=== PATIENT | male | born 1960 | race African-American/Black ===

== ENCOUNTER 2018-02-02 12:40 | Emergency (ER) | payer SELFPAY ==
[2018-02-02 14:04] LABS: Hemoglobin 14.9 g/dL (14.0-18.0); Mean Corpuscular HGB CONC 28.6 g/dL (32.0-36.0); Mean Corpuscular Hemoglobin 26.1 pg (27.0-31.0); Mean Corpuscular Volume 91.4 fL (78.0-98.0); Mean Platelet Volume 8.7 fL (7.4-10.4); Platelet Count 158 thou/uL (130-400); RBC Distribution Width 12.2 % (11.5-14.5); White Blood Cell (WBC) Count 7.7 thou/uL (4.8-10.8)
--- NOTE | 2018-02-02 14:21 | RAD ---
AP VIEW CHEST: SUPINE AND UPRIGHT VIEWS ABDOMEN: HISTORY: Pain and weakness for four days. FINDINGS: CHEST: AP view chest demonstrates a subtle area of patchy density in the left retrocardiac area, con cerning for a possible area of left lower lobe pneumonia. ABDOMEN: Supine and upright views of the abdomen demonstrate a large amount of gas in the colon. Th e colon is distended, but no individual loop is markedly distended. Gas is also seen in the small cait wel. No definite evidence of an air-fluid level is seen. IMPRESSION: 1. Area of opacity in the left lung base, concerning for an area of pneumonia. 2. Distention of colon by a large amount of gas. No definite evidence of obstruction or ileus seen. POS: [facility]
[2018-02-02 14:25] LABS: ALT (SGPT) 40 U/L (8-55); AST (SGOT) 23 U/L (5-34); Albumin 4.8 g/dL (3.5-5.0); Alkaline Phosphatase 59 U/L (40-150); Anion Gap 13 mmol/L (10-20); BUN (Urea Nitrogen) 12 mg/dL (8.4-25.7); Bilirubin, Total 0.7 mg/dL (0.2-1.2); Calc. Creatinine Clearance 0 mL/min (70-130); Calcium 10.3 mg/dL (7.8-10.44); Carbon Dioxide 25 mmol/L (22-29); Chloride 101 mmol/L (98-107); Estimated GFR-MDRD 68; Globulin 4.3 g/dL (2.4-3.5); Glucose 101 mg/dL (70-105); Protein, Total 9.1 g/dL (6.0-8.3); Sodium 135 mmol/L (136-145)
[2018-02-02 14:29] LABS: Troponin I Less than 0.010 ng/mL (< 0.028)
[2018-02-02 14:31] LABS: #Eosinphils 0.1 thou/uL (0.0-0.7); #Lymphocytes 2.3 thou/uL (1.20-3.40); #Monocytes 0.5 thou/uL (0.11-0.59); #Neutrophils 4.8 thou/uL (1.40-6.50); %Basophils 0.3 % (0.0-1.0); %Eosinophils 1.4 % (0.0-10.0); %Lymphocytes 29.4 % (21.0-51.0); %Neutrophils 61.8 % (42.0-75.0); PLT Morphology Comment Appears Adequate
[2018-02-02] MEDS ORDERED: Ondansetron HCl/PF 4 MG/2 ML Vial ONE (15:26)
[2018-02-02] MEDS ORDERED: Morphine 4 MG/ML VIAL ONE (15:26)
== END 2018-02-02 16:20 | disposition home or self-care (01) ==
LOC: ERS 12:40
DX: R55 Syncope and collapse (principal); R10.9 Unspecified abdominal pain; I10 Essential (primary) hypertension; Z79.899 Other long term (current) drug therapy
CPT/HCPCS: 36415; 74022; 80053; 82553; 84484; 85025; 93005; 96372; 96374; 96375; J2270; J2405

== ENCOUNTER 2018-04-04 08:00 | Inpatient (IN) | payer OTHER ==
--- NOTE | 2018-03-30 10:40 | HP ---
HISTORY OF PRESENT ILLNESS: Axel Keenan is a 57-year-old male patient, unemployed followed by [facility] residents, Dr. Davis, undergoing screening colonoscopy 02/03/2018. This revealed ascending colon polyp, hepatic flexure, biopsy tubular adenoma. This follow up occupied 30%-40% of the colonic circ umference and the biopsy was not excised. The patient was sent to Dr. Lon Tong to evaluate this . The patient had a rectosigmoid tubular adenoma that was biopsied and biopsy of the sigmoid colon, 30 cm was normal mucosa. The patient subsequently referred to Dr. Lon Tong where he underwent r epeat colonoscopy. [facility] on 03/16/2018 noting a 30 mm polyp at hepatic flexure. This had been tattooed by the [facility]. When they saw him, polyp re section was not possible. He had a 4 mm polyp in the sigmoid colon removed with cold snare and he fishman d 12 mm polyp in the rectosigmoid removed with hot snare. This was tattooed. Pathology returned fra gments of TVA, hepatic flexure, rectosigmoid 20 cm, invasive well to moderately differentiated adenoc arcinoma arising in a tubulovillous adenoma, margins positive for adenocarcinoma. Upper endoscopy wa s unremarkable. Plan at this time is to repeat bowel prep and plan laparoscopic right colectomy vers us segmental resection and laparoscopic low anterior resection. SOCIAL HISTORY: Patient is unemployed. He is working on disability. He is from his . He lives with his girlfriend. PAST SURGICAL HISTORY: Right wrist surgery, colonoscopies as noted above. Testicular torsion and ri ght inguinal hernia repair with mesh. PAST MEDICAL HISTORY: Hepatitis C treated with Dr. Tong 2000, hypertension and GERD. REVIEW OF SYSTEMS: Ten point noncontributory. MEDICATION: Lisinopril 40 mg a day and hydrochlorothiazide daily. ALCOHOL: None. PHYSICAL EXAMINATION: VITAL SIGNS: 259 pounds, 73 inches, 33 BMI, 146/84, 73, 97.5 degrees. HEENT: Unremarkable. LUNGS: Clear to auscultation. CARDIAC: Regular rate and rhythm without murmur or gallop. ABDOMEN: Soft, nontender, no masses. EXTREMITIES: Unremarkable. ASSESSMENT AND PLAN: 1. Hepatic flexure TVA, sessile 30%-40% circumference tattooed by Family Practice. Plan, laparoscop ic segmental resection versus right colectomy. 2. 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 Th is has been tattooed by Dr. Lon Tong. Plan laparoscopic left colon resection and anastomosis. Risks of infection, bleeding, reoperation, anastomotic leakage discussed. 3. History of hepatitis C.
[2018-04-06] MEDS ORDERED: Ketorolac Tromethamine 30 MG/ML VIAL ONE (07:38)
[2018-04-06] MEDS ORDERED: Meropenem 2 GM in Admixture Fee 1 EACH IVPB SCH (08:00)
[2018-04-06] MEDS ORDERED: Meropenem 2 GM, Admixture Fee 1 EACH in Sodium Chloride 0.9% 100 ML IVPB SCH (08:15)
[2018-04-06] MEDS ORDERED: Dexamethasone 4 mg/ml Vial ONE (08:31)
[2018-04-06] MEDS ORDERED: Fentanyl 100 MCG/2 ML VIAL ONE ×5 (08:31→17:49)
[2018-04-06] MEDS ORDERED: Midazolam HCl 2 mg/2 ml Vial ONE ×2 (08:31→11:13)
[2018-04-06] MEDS ORDERED: Bupivacaine HCl 0.5%/Epinephrine 1:200,000/PF 30 ml Vial ONE (09:01)
[2018-04-06] MEDS ORDERED: PROPOFOL 200 MG/20 ML VIAL ONE (10:46)
[2018-04-06] MEDS ORDERED: Vecuronium 10 MG VIAL ONE (10:46)
[2018-04-06] MEDS ORDERED: PHENYLEPHRINE-NS 100 MCG/ML 10 ML SYRINGE ONE (10:46)
[2018-04-06] MEDS ORDERED: Lidocaine 1% PF 5 ML VIAL ONE (10:46)
[2018-04-06] MEDS ORDERED: Glycopyrrolate 0.2 MG/ML 5 ML SYRINGE ONE (10:46)
[2018-04-06] MEDS ORDERED: Ondansetron PF 4 MG/2 ML Vial ONE (10:46)
[2018-04-06] MEDS ORDERED: Dexamethasone 20 MG/5 ML VIAL ONE (10:46)
[2018-04-06] MEDS ORDERED: Bupivacaine/Epinephrine 0.25% 30 ML VIAL ONE (11:03)
[2018-04-06] MEDS ORDERED: Fentanyl 250 MCG/5 ML VIAL ONE (11:13)
[2018-04-06] MEDS ORDERED: Albumin 5% 500 ML ONE ×2 (13:34→13:36)
[2018-04-06] MEDS ORDERED: SUGAMMADEX SODIUM 200 MG/2 ML VIAL ONE (16:30)
[2018-04-06] MEDS ORDERED: Promethazine HCl 25 MG/ML VIAL IM PRN (17:14)
[2018-04-06] MEDS ORDERED: Ondansetron HCl/PF 4 MG/2 ML Vial IVP PRN (17:14)
[2018-04-06] MEDS ORDERED: Promethazine HCl 25 MG/ML VIAL SLOW IVP PRN (17:14)
[2018-04-06] MEDS ORDERED: hydrALAZINE 20 MG/ML VIAL SLOW IVP PRN (17:20)
[2018-04-06] MEDS ORDERED: Ondansetron ODT 8 MG TAB SL PRN (17:26)
[2018-04-06] MEDS ORDERED: Ondansetron ODT 8 MG TAB PO PRN (17:26)
[2018-04-06] MEDS: Ketorolac Tromethamine 30 MG/ML VIAL IVP SCH ×2 (19:30→23:24)
[2018-04-06] MEDS: Enoxaparin Sodium 40 MG/0.4 ML SYRINGE SC SCH (19:31)
[2018-04-06] MEDS: Famotidine/PF 20 mg/2ml Vial SLOW IVP SCH (19:31)
[2018-04-06] MEDS: Acetaminophen 1,000 MG in Premix Bag 1 BAG IVPB SCH ×2 (20:51→23:24)
[2018-04-06] MEDS: Lactated Ringer's 1,000 ML IV SCH (21:04)
[2018-04-06] MEDS: Famotidine 20 MG TAB PO SCH (21:04)
[2018-04-06] MEDS: Ondansetron PF 4 MG/2 ML Vial IVP PRN (22:26)
--- NOTE | 2018-04-07 01:55 | OP ---
DATE OF PROCEDURE: 04/06/2018 PREOPERATIVE DIAGNOSES: Hepatic flexure, distal ascending colon, tubular adenoma polyp unresectable, sessile. Rectosigmoid adenocarcinoma on biopsy. PROCEDURES PERFORMED: Laparoscopic right colectomy, laparoscopic mobilization of splenic flexure, laparoscopic sigmoid resection with 33 mm EEA stapled anastomosis, checked under water and no leaks. ANESTHESIA: General. ASSISTANTS: 1. Pati Sheehan, certified scrub miller first. 2. Ronda Gastelum, MS4. ESTIMATED BLOOD LOSS: 100 mL. BLOOD TRANSFUSED: None. DESCRIPTION OF PROCEDURE: The patient was taken to the operating room. Under general anesthesia in dorsal lithotomy position, the abdomen was prepared with ChloraPrep, draped in routine fashion. Buttocks and perineum prepared with Betadine. TAP block had been performed. Infraumbilical incision was made, pneumoperitoneum to 15 mmHg was obtained with a Veress needle laparoscope inserted. Right and left upper quadrant incisions were made and a #5 port was placed, left lower quadrant incision was made and a #12 port was placed, right lower quadrant incision was made and #12 was placed, suprapubic incision was made and a #5 port was placed. Other #5 ports placed as indicated. Attention was first turned to the right colon. The right colon was mobilized as was the terminal ileum. The appendix was distally adherent to the pelvis, and this took a prolonged period of time to take the adhesions down from the pelvis. Appendix fragmented and was removed in segments. It was submitted to Pathology along with the right colon specimen. Once the right colon and cecum were mobilized, the right ureter had been identified and kept free of harm. Medial and lateral dissection carried out with the mesentery identifying the ileocolic pedicle and dissected it free. Duodenum identified and kept free of harm. The tattooed area of the colon was in the distal ascending colon. Pedicle taken down with EndoGIA white load stapler. LigaSure was used to divide the mesentery up to 4 inches of the ileum and up towards the proximal transverse colon. Blue load stapler was used to divide the small bowel and colon. Specimen was placed on the right abdomen. [id number]-[id number] anastomosis created with 3 fires of the EndoGIA blue load stapler. Good anastomosis was noted between the terminal ileum and the proximal transverse colon. The gastrocolic ligament had been taken down from the transverse colon to the right and to the left of midline and this continued towards the splenic flexure. The transverse colon distally was mobilized. The descending colon was mobilized along the peritoneal reflection. The splenic flexure was mobilized using the LigaSure. Good hemostasis was noted. Dissection was carried down towards the pelvis. The tattooed area of the distal sigmoid colon was identified. It was retracted cephalad. The patient was positioned according to the area of work for optimal exposure. The left colon was mobilized, taking down the peritoneal reflection. The left ureter was identified and kept free of harm as was the right ureter. Mesentery was dissected free medially and laterally, and the YESSI artery was dissected free and divided with 2 fires of the ARTUR white load stapler. The ureter was kept free of harm. Dissection was carried down to the pelvis. Rectosigmoid was divided with 3 fires of the EndoGIA blue load stapler. This segment of the descending colon was reached into the pelvis without tension. The grasper was placed in this area well above the tattooed area for anastomosis. Distal margins were at least 4 cm or more. At this point, Pfannenstiel incision was made and a wound protector inserted, and the right colon specimen was removed along with the segment of his appendix submitted to Pathology. The left colon was brought out through this wound protector and the area to be anastomosed this from a position being marked with a grasper. The colon was divided with a cautery and had excellent blood supply. The patient was morbidly obese, and there was abundant fatty tissue. Pursestring suture of 2-0 prolene was placed and a lubricated EEA anvil was placed into the proximal colon and pursestring suture tied. This was placed back down into the abdominal cavity, and wound protector twisted to reobtain pneumoperitoneum. Attention was then turned to the pelvis. My assistants then placed serial rectal dilators to a 33 mm EEA sizer. The stapler was then inserted transanally and advanced towards the rectal stump, visualized endoscopically, and the post from the stapler advanced out of the staple line and then made it to the proximal colon anvil after assuring proper orientation. Staple was fired and a good anastomosis appreciated. This was checked under water and there were no leaks. Abdominal cavity was inspected and there were no areas of bleeding. Irrigant and pneumoperitoneum evacuated. All instruments were removed including the wound protector. Gloves and gowns were changed. Wound irrigated. Fascia approximated from the Pfannenstiel incision suprapubic with continuous suture of #1 PDS. Skin and subcutaneous tissues were irrigated. Gloves changed. All skin incision was approximated with subdermal 4-0 Monocryl and Dunlo glue applied. Job ID: [id number]
[2018-04-07 05:45] LABS: #Monocytes 1.3 thou/uL (0.11-0.59); #Neutrophils 11.4 thou/uL (1.40-6.50); %Eosinophils 0.1 % (0.0-10.0); %Lymphocytes 7.3 % (21.0-51.0); %Monocytes 9.5 % (0.0-10.0); %Neutrophils 83.1 % (42.0-75.0); Hemoglobin 11.1 g/dL (14.0-18.0); Mean Corpuscular Hemoglobin 31.3 pg (27.0-31.0); Mean Platelet Volume 9.2 fL (7.4-10.4); Platelet Count 147 thou/uL (130-400); RBC Distribution Width 12.1 % (11.5-14.5); Red Blood Cell (RBC) Count 3.56 mill/uL (4.70-6.10); White Blood Cell (WBC) Count 13.8 thou/uL (4.8-10.8)
[2018-04-07 05:53] LABS: Anion Gap 8 mmol/L (10-20); BUN (Urea Nitrogen) 17 mg/dL (8.4-25.7); Calc. Creatinine Clearance 111 mL/min (70-130); Calcium 8.4 mg/dL (7.8-10.44); Carbon Dioxide 26 mmol/L (22-29); Chloride 104 mmol/L (98-107); Estimated GFR-MDRD 80; Glucose 164 mg/dL (70-105); Potassium 4.1 mmol/L (3.5-5.1); Sodium 134 mmol/L (136-145)
[2018-04-07] MEDS: Lactated Ringer's 1,000 ML IV SCH ×3 (06:27→23:36)
[2018-04-07] MEDS: Acetaminophen 1,000 MG in Premix Bag 1 BAG IVPB SCH ×2 (06:27→11:26)
[2018-04-07] MEDS: Ketorolac Tromethamine 30 MG/ML VIAL IVP SCH ×4 (06:27→23:44)
[2018-04-07] MEDS: Famotidine 20 MG TAB PO SCH ×2 (08:08→20:31)
[2018-04-07] MEDS: Famotidine/PF 20 mg/2ml Vial SLOW IVP SCH ×2 (08:08→20:38)
[2018-04-07] MEDS: Lisinopril 20 MG TAB PO SCH ×2 (08:08)
[2018-04-07] MEDS: Morphine 2 MG/ML SYRINGE SLOW IVP PRN (08:13)
[2018-04-07] MEDS ORDERED: Hydrochlorothiazide 25 MG TAB PO SCH (09:00)
[2018-04-07] MEDS ORDERED: Ibuprofen 600 MG TAB PO PRN (12:00)
[2018-04-07] MEDS ORDERED: traMADol HCl 50 MG TAB PO PRN ×2 (12:00)
[2018-04-07] MEDS: Ondansetron PF 4 MG/2 ML Vial IVP PRN (16:24)
--- NOTE | 2018-04-07 19:54 | RAD ---
UPRIGHT AND SUPINE FRONTAL IMAGING OF THE ABDOMEN AND PELVIS 04/07/18 COMPARISON: 02/02/18. HISTORY: Status post colon resection, distention. FINDINGS: Postoperative clips overlie the right lower quadrant. No discrete free intraperitoneal air is seen on the upright imaging. There are air fluid levels noted within the bowel and there is distention of cait wel within the central abdomen. This appears to represent a combination of large and small bowel. Per haps this represents an ileus. This could be better evaluated with followup imaging. IMPRESSION: Mild gaseous distention of bowel within the central abdomen as detailed above. POS: [facility]
[2018-04-07] MEDS: Acetaminophen 500 MG TAB PO PRN (20:30)
[2018-04-07] MEDS: Enoxaparin Sodium 40 MG/0.4 ML SYRINGE SC SCH (20:30)
--- NOTE | 2018-04-07 20:30 | PRG ---
DATE OF SERVICE: 04/07/2018 SUBJECTIVE: Mr. Keenan is one day postop laparoscopic right colon resection, primary anastomosis, laparoscopic low anterior resection, sigmoid resection, and 33-mm EEA anastomosis. He walked variously around the hallway last night, but has been having more pain and soreness today, limiting his mobility. He has had some bloody bowel movements, small volume. He has passed some gas. He does feel somewhat bloated. White count 13 and hemoglobin 11.1. Basic metabolic profile; sodium 134, BUN 17, and creatinine 1.13. The patient's IV fluids have been maintained. He is taking some liquids. OBJECTIVE: VITAL SIGNS: 98.1 degrees, 86, and 100/53. LUNGS: Clear to auscultation. CARDIAC: Regular rate and rhythm without murmur or gallop. ABDOMEN: Soft, mildly distended. Bowel sounds present. No peritoneal signs. Surgical wounds look good. ASSESSMENT AND PLAN: The patient postoperatively is having some postoperative complaints and distention. We will observe him for another 24 hours and check his labs. We will check his x-rays of the abdomen tonight and in the morning. We will make further recommendations based on his progress. He will continue to trial liquids. We will not advance his diet at this time. Job ID: [id number]
[2018-04-08] MEDS: Ondansetron ODT 4 MG TAB PO PRN (05:02)
[2018-04-08] MEDS: Ketorolac Tromethamine 30 MG/ML VIAL IVP SCH ×4 (05:02→23:31)
[2018-04-08 06:18] LABS: Anion Gap 10 mmol/L (10-20); BUN (Urea Nitrogen) 21 mg/dL (8.4-25.7); Calc. Creatinine Clearance 90 mL/min (70-130); Calcium 8.7 mg/dL (7.8-10.44); Carbon Dioxide 26 mmol/L (22-29); Chloride 104 mmol/L (98-107); Estimated GFR-MDRD 63; Glucose 148 mg/dL (70-105); Potassium 3.7 mmol/L (3.5-5.1); Sodium 136 mmol/L (136-145)
[2018-04-08 06:24] LABS: #Lymphocytes 1.8 thou/uL (1.20-3.40); #Neutrophils 9.1 thou/uL (1.40-6.50); %Basophils 0.1 % (0.0-1.0); %Eosinophils 0.1 % (0.0-10.0); %Lymphocytes 15.3 % (21.0-51.0); %Monocytes 8.6 % (0.0-10.0); Hemoglobin 8.5 g/dL (14.0-18.0); Mean Corpuscular HGB CONC 34.1 g/dL (32.0-36.0); Mean Corpuscular Hemoglobin 31.2 pg (27.0-31.0); Mean Corpuscular Volume 91.7 fL (78.0-98.0); Mean Platelet Volume 9.7 fL (7.4-10.4); Platelet Count 130 thou/uL (130-400); Red Blood Cell (RBC) Count 2.73 mill/uL (4.70-6.10)
[2018-04-08] MEDS: Morphine 2 MG/ML SYRINGE SLOW IVP PRN ×2 (08:23→15:23)
[2018-04-08] MEDS: Famotidine/PF 20 mg/2ml Vial SLOW IVP SCH ×2 (08:28→20:21)
[2018-04-08] MEDS: Famotidine 20 MG TAB PO SCH ×2 (08:29→20:15)
--- NOTE | 2018-04-08 08:45 | RAD ---
ABDOMEN 2 VIEWS: INDICATION: History of left colon resection. COMPARISON: Prior exam dated 04/07/2018. FINDINGS: Again seen are diffuse gas-filled loops of small and large bowel predominantly in the upper abdomen w ith air fluid level. No definite pneumoperitoneum is evident. Lung bases are clear. No acute osseo us abnormality is evident. IMPRESSION: Diffuse gas and fluid-filled loops of small and large bowel in a postoperative patient suspicious for diffuse ileus. Continued followup is recommended. POS: [facility]
[2018-04-08] MEDS: Lisinopril 20 MG TAB PO SCH ×2 (08:56)
[2018-04-08] MEDS: Lactated Ringer's 1,000 ML IV SCH ×3 (08:59→23:32)
[2018-04-08 15:52] LABS: #Lymphocytes 1.9 thou/uL (1.20-3.40); #Monocytes 1.1 thou/uL (0.11-0.59); #Neutrophils 7.9 thou/uL (1.40-6.50); %Basophils 0.1 % (0.0-1.0); %Eosinophils 0.2 % (0.0-10.0); %Lymphocytes 17.5 % (21.0-51.0); %Monocytes 9.7 % (0.0-10.0); %Neutrophils 72.5 % (42.0-75.0); Hemoglobin 8.7 g/dL (14.0-18.0); Mean Corpuscular Hemoglobin 31.3 pg (27.0-31.0); Mean Corpuscular Volume 92.2 fL (78.0-98.0); Mean Platelet Volume 8.7 fL (7.4-10.4); Platelet Count 137 thou/uL (130-400); Red Blood Cell (RBC) Count 2.76 mill/uL (4.70-6.10); White Blood Cell (WBC) Count 10.8 thou/uL (4.8-10.8)
[2018-04-08] MEDS ORDERED: Sodium Chloride 0.9% 1,000 ML IV SCH (16:45)
--- NOTE | 2018-04-08 21:12 | CT ---
CT OF THE ABDOMEN AND PELVIS WITHOUT CONTRAST: 04/08/18 COMPARISON: 05/21/11. HISTORY: Abdominal distention status post colectomy. Evaluate for obstruction. TECHNIQUE: Multiple contiguous axial images were obtained in a CT of the abdomen and pelvis without contrast. Co keshav reformats were performed. FINDINGS: The liver, gallbladder, right kidney, adrenal glands, spleen, and pancreas are unremarkable. There is a 2.1 cm hypodensity in the left kidney which likely represents a cyst. There is distention of small bowel loops throughout the abdomen without transition point. These measu re up to 3.5 cm in greatest dimension. No free air or free fluid are seen in the abdomen or pelvis. There is an anastomotic staple line in the rectum. There is also an anastomotic staple line and multi ple surgical clips in the right abdomen. This is in the region of the cecum. There is high density ma terial in the left colon extending from the splenic flexure down to the rectum. This is nonspecific a nd could represent either blood or enteric contrast from prior examination. No abdominal or pelvic lymphadenopathy are seen. Mild degenerative changes are seen in the spine. At electasis is seen in both lung bases. Stranding is seen in the abdominal wall likely from recent surg gerda. IMPRESSION: 1. Diffuse small bowel distention may be secondary to postoperative ileus. 2. High density material in the left colon could potentially represent hemorrhage or enteric con trast. 3. Left renal cyst. POS: [facility]
--- NOTE | 2018-04-08 22:23 | PRG ---
DATE OF SERVICE: 04/08/2018 SUBJECTIVE: Mr. Keenan had nausea last night. He has had more bloody stools. Temperature 98.9 degrees, heart rate 99 to 105, blood pressure 125/73. The patient is urinating dark urine. White count 10. Hemoglobin 8.7, stable from this morning at 8.5, down from preop at 11.1. Pathology pending. He feels less distended yesterday. His baseline abdomen is protuberant. OBJECTIVE: LUNGS: Clear to auscultation. CARDIAC: Regular rate and rhythm without murmur or gallop. ABDOMEN: Distended, tympanitic. No guarding. No rebound. No bowel sounds. EXTREMITIES: Unremarkable. ASSESSMENT AND PLAN: Postoperative ileus. His creatinine is slightly elevated at 1.4. With his reportedly concentrated urine, we will plan IV fluid bolus. We will hold his Lovenox due to his bloody bowel movements. We will continue n.p.o. for now. We will increase his IV fluids to [address] Anderson is covering over the weekend. Hopefully, he will not need an NG tube. Job ID: [id number]
--- NOTE | 2018-04-08 22:36 | EKG ---
Test Reason : Blood Pressure : / mmHG Vent. Rate : 098 BPM Atrial Rate : 098 BPM P-R Int : 142 ms QRS Dur : 096 ms QT Int : 342 ms P-R-T Axes : 005 026 022 degrees QTc Int : 436 ms Normal sinus rhythm Normal ECG When compared with ECG of 04-APR-2018 09:21, QT has lengthened Confirmed by PHIL MUÑOZ, DR. Mojica (4) on 04/08/2018 10:36:10 PM Referred By: NERY Confirmed By:DR. Yunior VILLARREAL MD
[2018-04-08] MEDS: Acetaminophen 500 MG TAB PO PRN (23:32)
[2018-04-09] MEDS: Ondansetron ODT 4 MG TAB PO PRN (05:30)
[2018-04-09] MEDS: Morphine 2 MG/ML SYRINGE SLOW IVP PRN ×3 (05:30→20:05)
[2018-04-09] MEDS: Lactated Ringer's 1,000 ML IV SCH ×3 (05:31→22:05)
[2018-04-09] MEDS: Ketorolac Tromethamine 30 MG/ML VIAL IVP SCH ×3 (05:31→17:33)
[2018-04-09 05:54] LABS: #Lymphocytes 1.2 thou/uL (1.20-3.40); #Monocytes 1.2 thou/uL (0.11-0.59); #Neutrophils 10.2 thou/uL (1.40-6.50); %Basophils 0.3 % (0.0-1.0); %Eosinophils 0.2 % (0.0-10.0); %Lymphocytes 9.3 % (21.0-51.0); %Monocytes 9.8 % (0.0-10.0); %Neutrophils 80.4 % (42.0-75.0); Mean Corpuscular HGB CONC 33.9 g/dL (32.0-36.0); Mean Corpuscular Hemoglobin 31.2 pg (27.0-31.0); Platelet Count 146 thou/uL (130-400); Red Blood Cell (RBC) Count 2.58 mill/uL (4.70-6.10); White Blood Cell (WBC) Count 12.7 thou/uL (4.8-10.8)
[2018-04-09 06:07] LABS: Anion Gap 11 mmol/L (10-20); BUN (Urea Nitrogen) 21 mg/dL (8.4-25.7); Calc. Creatinine Clearance 109 mL/min (70-130); Calcium 8.5 mg/dL (7.8-10.44); Carbon Dioxide 24 mmol/L (22-29); Chloride 106 mmol/L (98-107); Estimated GFR-MDRD 78; Glucose 148 mg/dL (70-105); Potassium 3.9 mmol/L (3.5-5.1); Sodium 137 mmol/L (136-145)
[2018-04-09] MEDS: Famotidine/PF 20 mg/2ml Vial SLOW IVP SCH ×2 (08:27→20:05)
[2018-04-09] MEDS: Famotidine 20 MG TAB PO SCH ×2 (08:32→20:11)
[2018-04-09] MEDS ORDERED: Sodium Chloride 0.9% 500 ML IVPB SCH (14:45)
[2018-04-09 16:12] LABS: Hemoglobin 7.8 g/dL (14.0-18.0)
[2018-04-10] MEDS: Lactated Ringer's 1,000 ML IV SCH ×6 (04:40→23:22)
[2018-04-10] MEDS: Morphine 2 MG/ML SYRINGE SLOW IVP PRN ×4 (04:51→23:38)
[2018-04-10 06:11] LABS: #Basophils 0.1 thou/uL (0.0-0.2); #Eosinphils 0.1 thou/uL (0.0-0.7); #Lymphocytes 1.3 thou/uL (1.20-3.40); #Monocytes 1.3 thou/uL (0.11-0.59); #Neutrophils 8.2 thou/uL (1.40-6.50); %Basophils 0.7 % (0.0-1.0); %Eosinophils 0.9 % (0.0-10.0); %Lymphocytes 11.5 % (21.0-51.0); %Monocytes 11.9 % (0.0-10.0); %Neutrophils 75.1 % (42.0-75.0); Mean Corpuscular HGB CONC 33.3 g/dL (32.0-36.0); Mean Corpuscular Volume 93.2 fL (78.0-98.0); Mean Platelet Volume 7.6 fL (7.4-10.4); Platelet Count 143 thou/uL (130-400); RBC Distribution Width 12.2 % (11.5-14.5); Red Blood Cell (RBC) Count 2.27 mill/uL (4.70-6.10)
[2018-04-10 06:23] LABS: Anion Gap 12 mmol/L (10-20); BUN (Urea Nitrogen) 16 mg/dL (8.4-25.7); Calc. Creatinine Clearance 113 mL/min (70-130); Calcium 8.4 mg/dL (7.8-10.44); Carbon Dioxide 24 mmol/L (22-29); Chloride 108 mmol/L (98-107); Estimated GFR-MDRD 82; Glucose 142 mg/dL (70-105); Potassium 3.7 mmol/L (3.5-5.1); Sodium 140 mmol/L (136-145)
[2018-04-10] MEDS ORDERED: Furosemide 20 MG/2 ML VIAL SLOW IVP SCH (10:30)
[2018-04-10] MEDS: Famotidine 20 MG TAB PO SCH ×2 (11:01→21:43)
[2018-04-10] MEDS: Famotidine/PF 20 mg/2ml Vial SLOW IVP SCH ×2 (11:01→20:31)
[2018-04-10] MEDS ORDERED: Sodium Chloride 0.9% 10 ML ONE (15:29)
[2018-04-10] MEDS ORDERED: Iopamidol 370 76% 100 ML VIAL ONE (16:40)
--- NOTE | 2018-04-10 21:24 | CT ---
CT ABDOMEN AND PELVIS WITH CONTRAST: Comparison: 04-08-18 History: Right lower quadrant abdominal pain. History of colon repair on Wednesday. Technique: Multiple contiguous axial images were obtained in a CT of the abdomen and pelvis with cont rast. Coronal reformats were performed. FINDINGS: A small amount of free fluid is seen in the abdomen and pelvis. Post-surgical changes are seen in the cecal region. There are persistently dilated loops of small bowel measuring up to 4.2 cm in size. No transition point is seen. High density fluid is again seen in the left colon. Anastomotic staple radha e is also seen in the rectum. The liver, gallbladder, right kidney, adrenal glands, spleen and pancreas are unremarkable. There is a 2.0 cm cyst in the left kidney. No abdominal or pelvic lymphadenopathy are seen. Degenerative changes are seen in the spine. Atelectasis is seen in both lung bases with small adjacen t pleural effusions. IMPRESSION: 1. Stable post-operative ileus. 2. High density fluid in the left colon may represent hemorrhage. 3. Left renal cyst. 4. Interval development of small amount of ascites. 5. Bilateral pleural effusions with adjacent atelectasis. POS: [facility]
[2018-04-11] MEDS: Lactated Ringer's 1,000 ML IV SCH ×5 (04:18→16:13)
[2018-04-11] MEDS: Morphine 2 MG/ML SYRINGE SLOW IVP PRN ×5 (04:18→20:31)
[2018-04-11 06:35] LABS: #Eosinphils 0.1 thou/uL (0.0-0.7); #Lymphocytes 1.4 thou/uL (1.20-3.40); #Monocytes 1.4 thou/uL (0.11-0.59); #Neutrophils 8.8 thou/uL (1.40-6.50); %Basophils 0.1 % (0.0-1.0); %Eosinophils 0.6 % (0.0-10.0); %Lymphocytes 11.7 % (21.0-51.0); %Monocytes 11.8 % (0.0-10.0); %Neutrophils 75.8 % (42.0-75.0); Hemoglobin 7.6 g/dL (14.0-18.0); Mean Corpuscular HGB CONC 33.1 g/dL (32.0-36.0); Mean Corpuscular Volume 90.9 fL (78.0-98.0); Mean Platelet Volume 8.6 fL (7.4-10.4); Platelet Count 180 thou/uL (130-400); RBC Distribution Width 13.9 % (11.5-14.5); Red Blood Cell (RBC) Count 2.52 mill/uL (4.70-6.10); White Blood Cell (WBC) Count 11.7 thou/uL (4.8-10.8)
[2018-04-11] MEDS: Famotidine/PF 20 mg/2ml Vial SLOW IVP SCH ×2 (10:09→20:34)
[2018-04-11] MEDS: Famotidine 20 MG TAB PO SCH ×2 (10:10→21:48)
--- NOTE | 2018-04-11 10:37 | RAD ---
SINGLE VIEW OF THE CHEST AND 2 VIEWS OF THE ABDOMEN: COMPARISON: CT abdomen/pelvis 04/10/2018. HISTORY: Abdominal distention. FINDINGS: Supine and upright views of the abdomen show multiple air-filled loops of small bowel. Anastomotic s taple lines are seen in the right upper quadrant of the abdomen and in the rectal region. Surgical c lips are also seen in the right lower quadrant of the abdomen. No free air is seen on upright examin ation. Atelectasis is seen in the right lung base. IMPRESSION: Distended loops of small bowel may be secondary to postoperative ileus. POS: [facility]
--- NOTE | 2018-04-11 16:42 | RAD ---
KUB: 04/11/2018 HISTORY: Nasogastric tube placement. FINDINGS: Supine KUB limits assessment for free air and bowel obstruction. There is a nasogastric tube extendi ng into the left upper quadrant, likely within the gastric body. There are dilated loops of gas-fill ed bowel within the central abdomen, not optimally assessed. IMPRESSION: Nasogastric tube, as above. POS: [facility]
[2018-04-12] MEDS: Morphine 2 MG/ML SYRINGE SLOW IVP PRN ×5 (00:07→14:36)
[2018-04-12] MEDS: Acetaminophen 500 MG TAB PO PRN ×2 (00:07→05:59)
[2018-04-12] MEDS: Lactated Ringer's 1,000 ML IV SCH ×6 (02:10→23:46)
--- NOTE | 2018-04-12 06:57 | PRG ---
DATE OF SERVICE: 04/11/2018 SUBJECTIVE: Axel Keenan over the week again had a CAT scan yesterday. I personally reviewed the CAT scan Wednesday and Wednesday with the radiologist. That CAT scan reveals distended small bowel loops, patent ileocolic anastomosis, gas in the transverse colon beyond it. Normal colorectal anastomosis without fluid, without evidence of leak, and decompressed proximal colon to the colorectal anastomosis. The patient was transfused yesterday for a hemoglobin of 7. His heart rate has slightly improved at 100 to 108, temp 99.5 degrees, and blood pressure 150/89. This morning, his hemoglobin is 7.6, white count 11.7. Basic metabolic profile is normal. Sats 88% to 91%. OBJECTIVE: LUNGS: Clear to auscultation. CARDIAC: Regular rate and rhythm without murmur or gallop. ABDOMEN: Soft, distended, tympanitic, nontender. No guarding. EXTREMITIES: Unremarkable. ASSESSMENT AND PLAN: Ileus. I do not hear any bowel sounds he's extended tympanitic. There is no radiological CAT scan evidence of obstruction at the ileocolic anastomosis. We will place an NG tube to suction and hope this improves his saturations and GI function. If not, he may need a laparotomy in the next day or two. Job ID: [id number]
[2018-04-12 07:35] LABS: Anion Gap 12 mmol/L (10-20); BUN (Urea Nitrogen) 15 mg/dL (8.4-25.7); Calc. Creatinine Clearance 127 mL/min (70-130); Calcium 9.1 mg/dL (7.8-10.44); Carbon Dioxide 26 mmol/L (22-29); Chloride 109 mmol/L (98-107); Estimated GFR-MDRD Greater than 90; Glucose 129 mg/dL (70-105); Potassium 3.9 mmol/L (3.5-5.1); Sodium 143 mmol/L (136-145)
[2018-04-12 07:36] LABS: Hemoglobin 7.9 g/dL (14.0-18.0); Mean Corpuscular Hemoglobin 30.2 pg (27.0-31.0); Mean Corpuscular Volume 91.6 fL (78.0-98.0); Mean Platelet Volume 8.6 fL (7.4-10.4); Platelet Count 212 thou/uL (130-400); RBC Distribution Width 13.9 % (11.5-14.5); Red Blood Cell (RBC) Count 2.61 mill/uL (4.70-6.10); White Blood Cell (WBC) Count 10.6 thou/uL (4.8-10.8)
[2018-04-12] MEDS: Famotidine/PF 20 mg/2ml Vial SLOW IVP SCH ×2 (08:22→21:30)
[2018-04-12] MEDS: Famotidine 20 MG TAB PO SCH ×2 (08:57→21:29)
[2018-04-12 09:14] LABS: Band 17 % (5-11); Eosinophils 3 % (0-10); Lymphocytes 17 % (21-51); MDiff Complete? YES; Monocytes 12 % (0-10); Neutrophil 50 % (42-75); Nucleated RBC 2 % (0); PLT Morphology Comment Appears Adequate; Polychromasia SLIGHT = 2-3 cells (100X) (0-2/hpf); Reactive Lymphocytes 1 % (0-10)
[2018-04-12] MEDS ORDERED: Furosemide 40 MG/4 ML VIAL SLOW IVP SCH (09:30)
--- NOTE | 2018-04-12 10:22 | PRG ---
DATE OF SERVICE: 04/12/2018 SUBJECTIVE: Mr. Keenan today still does not feel well. OBJECTIVE: VITAL SIGNS: Temperature 99.5 degrees, heart rate 104, respiratory rate 18, and blood pressure 116/69. LUNGS: No wheezing this morning, although nurses had reported wheezing yesterday. No rhonchi. CARDIAC: Sinus tachycardia at 104, regular rhythm. ABDOMEN: Soft, quiet. Mild tenderness in right abdomen. EXTREMITIES: Unremarkable. NG tube output since placing NG tube yesterday 1550. Urine output 1075. LABORATORY DATA: White count this morning is 10 and hemoglobin is 7.9, stable from yesterday. Sodium 143, potassium 3.9, BUN 15, and creatinine 0.9. Single view of the chest yesterday, atelectasis. No evidence of pneumonia. The patient did have a fever last night to 101 degrees, is 99.5 degrees currently; blood pressure 116/69. ASSESSMENT AND PLAN: 1. Postoperative obstruction versus ileus. CAT scans x2 reveal tight anastomosis, distended small bowel. The patient, however, has been having fever with persistent high-volume NG tube output, recommend laparotomy and exploration to rule out postoperative complications or obstruction. We will plan this on a general anesthesia and TAP block. His hemoglobin is stable, although slightly low. He received 2 units of blood for postop bleeding, for anastomotic bleeding. We will plan type and cross and have a label in case he needs it perioperatively. 2. Atelectasis, have encouraged incentive spirometer, which he has been using frequently and encouraged him to be up in a chair and ambulating today prior to his operation. Risks and benefits of the operation including infection, bleeding, reoperation, wound problems were discussed. Questions were answered. Job ID: [id number]
--- NOTE | 2018-04-12 10:37 | RAD ---
TWO VIEWS ABDOMEN: Supine and upright views of the abdomen obtained. INDICATION: Postop ileus. FINDINGS: NG tube is noted I place, the tip overlying the region of the gastric antrum. There are dilated gas-filled loops of small bowel which exhibit differential air fluid levels in the upright position. There is evidence of scattered stool and gas in the colon. IMPRESSION: The degree of small bowel dilatation with differential air fluid levels is concerning for small bowel obstruction. POS: [facility]
[2018-04-12] MEDS ORDERED: PHENYLEPHRINE-NS 100 MCG/ML 10 ML SYRINGE ONE ×2 (16:16→22:17)
[2018-04-12] MEDS ORDERED: Succinylcholine Chloride 20 MG/ML 10 ml SYRINGE FS ONE (16:16)
[2018-04-12] MEDS ORDERED: PROPOFOL 200 MG/20 ML VIAL ONE (16:16)
[2018-04-12] MEDS ORDERED: Ondansetron PF 4 MG/2 ML Vial ONE (16:16)
[2018-04-12] MEDS ORDERED: Lidocaine 1% PF 5 ML VIAL ONE (16:16)
[2018-04-12] MEDS ORDERED: Lidocaine 1% (PF) 30 ML VIAL ONE (19:29)
[2018-04-12] MEDS ORDERED: Fentanyl 100 MCG/2 ML VIAL ONE (20:28)
[2018-04-12] MEDS ORDERED: Sodium Chloride 0.9% 20 ML ONE (21:42)
[2018-04-12] MEDS ORDERED: Ketorolac Tromethamine 30 MG/ML VIAL IVP PRN (22:54)
[2018-04-12] MEDS ORDERED: Propofol BOLUS 1,000 MG/100 ML VIAL IV PRN (23:00)
[2018-04-12] MEDS ORDERED: Fentanyl BOLUS 250 ML IVPB PRN (23:00)
[2018-04-12] MEDS ORDERED: fentaNYL Citrate/PF 2,000 MCG in Sodium Chloride 0.9% 60 ML IV SCH (23:00)
[2018-04-12] MEDS ORDERED: Morphine 2 MG/ML SYRINGE SLOW IVP PRN (23:00)
[2018-04-12] MEDS ORDERED: DISCONTINUE PREVIOUS NARCOTIC PAIN MEDICATIONS AND BENZODIAZEPINES FS SCH (23:00)
[2018-04-12] MEDS ORDERED: Lorazepam 2 MG/ML VIAL SLOW IVP PRN (23:00)
[2018-04-12] MEDS ORDERED: Ventilator Sedation Protocol 1 EACH FS SCH (23:00)
[2018-04-12] MEDS ORDERED: Propofol 1,000 MG/100 ML VIAL IV ONE (23:00)
[2018-04-12] MEDS ORDERED: Propofol 1,000 MG/100 ML VIAL IV PRN (23:00)
[2018-04-12 23:55] LABS: Actual Bicarbonate (HCO3a) 25.4 mEq/L (22-28); Base Excess (BEa) 1.5 mEq/L (-2.0 to +3.0); CO2 Tension 37.1 mmHg (35.0-45.0); Calcium, Ionized 1.02 mmol/L (1.12-1.30); Carboxyhemoglobin (COHb) 0.7 gm% (0.0-3.0); Hemoglobin (Hb) 10.3 g/dL (14.0-18.0); Potassium - ABG Lab 3.66 mmol/L (3.70-5.30); pH, Arterial 7.45 (7.35-7.45)
[2018-04-12 23:56] LABS: ALV-art Gradient 135.425 (0-20); Puncture Site LBA
--- NOTE | 2018-04-13 | RAD ---
PORTABLE CHEST: 04/12/18 HISTORY: Respiratory distress. Central line placement. COMPARISON: Prior day's exam. An endotracheal tube is in satisfactory position. Tip of the NG tube appears to be below the hemidiap hragm. Left subclavian line is seen with gastric tip overlying the superior vena cava. No signs of a pneumothorax on this supine film. Subsegmental atelectasis is seen in the lung bases. IMPRESSION: 1. Endotracheal tube in satisfactory position. 2. Left subclavian line, catheter tip overlying the proximal superior vena cava. No signs for a pneumothorax. POS: [facility]
[2018-04-13] MEDS: Albuterol Sulfate 2.5 mg/3 ml Neb NEB SCH ×6 (02:50→22:12)
[2018-04-13 05:20] LABS: ALT (SGPT) 35 U/L (8-55); AST (SGOT) 50 U/L (5-34); Albumin 2.3 g/dL (3.5-5.0); Alkaline Phosphatase 52 U/L (40-150); Anion Gap 15 mmol/L (10-20); BUN (Urea Nitrogen) 20 mg/dL (8.4-25.7); Bilirubin, Total 5.2 mg/dL (0.2-1.2); Calc. Creatinine Clearance 87 mL/min (70-130); Carbon Dioxide 25 mmol/L (22-29); Chloride 110 mmol/L (98-107); Estimated GFR-MDRD 61; Globulin 3.1 g/dL (2.4-3.5); Glucose 165 mg/dL (70-105); Magnesium 1.9 mg/dL (1.6-2.6); Phosphorus 4.8 mg/dL (2.3-4.7); Potassium 4.1 mmol/L (3.5-5.1); Protein, Total 5.4 g/dL (6.0-8.3); Sodium 146 mmol/L (136-145)
[2018-04-13] MEDS: Acetaminophen 1,000 MG in Premix Bag 1 BAG IVPB PRN ×2 (05:54→11:03)
[2018-04-13] MEDS: Meropenem 2 GM in Sodium Chloride 0.9% 100 ML IVPB SCH ×3 (05:55→22:11)
[2018-04-13] MEDS: Lactated Ringer's 1,000 ML IV SCH ×4 (06:02→22:11)
[2018-04-13 06:51] LABS: Base Excess (BEa) 3.6 mEq/L (-2.0 to +3.0); CO2 Tension 32.1 mmHg (35.0-45.0); Calcium, Ionized 1.01 mmol/L (1.12-1.30); Carboxyhemoglobin (COHb) 0.8 gm% (0.0-3.0); pH, Arterial 7.53 (7.35-7.45)
[2018-04-13 06:55] LABS: ALV-art Gradient 100.075 (0-20); Puncture Site RRA
[2018-04-13 07:32] LABS: Band 45 % (5-11); Eosinophils 1 % (0-10); Hemoglobin 10.7 g/dL (14.0-18.0); Lymphocytes 4 % (21-51); MDiff Complete? YES; Mean Corpuscular HGB CONC 32.8 g/dL (32.0-36.0); Mean Corpuscular Volume 91.5 fL (78.0-98.0); Mean Platelet Volume 9.7 fL (7.4-10.4); Monocytes 2 % (0-10); Neutrophil 43 % (42-75); Platelet Count 230 thou/uL (130-400); Polychromasia SLIGHT = 2-3 cells (100X) (0-2/hpf); RBC Distribution Width 13.6 % (11.5-14.5); Reactive Lymphocytes 5 % (0-10); Red Blood Cell (RBC) Count 3.57 mill/uL (4.70-6.10); Toxic Granulation SLIGHT; Vacuoles SLIGHT
--- NOTE | 2018-04-13 08:27 | OP ---
DATE OF PROCEDURE: 04/12/2018 PREOPERATIVE DIAGNOSES: Postoperative laparoscopic right colectomy and sigmoid resection with respectfully ileocolonic anastomosis and 33 mm end-to-end colorectal anastomosis with postoperative fever and ileus. POSTOPERATIVE DIAGNOSES: Postoperative laparoscopic right colectomy and sigmoid resection with respectfully ileocolonic anastomosis and 33 mm end-to-end colorectal anastomosis with postoperative fever and ileus with ischemic transverse colon and ileocolic anastomosis. No leak. Inflammatory changes and [id number] ischemic changes of the proximal transverse colon. PROCEDURES PERFORMED: Exploratory laparotomy, abdominal washout, ileocolic resection with reanastomosis, abdominal washout. Seprafilm applied, left subclavian vein central line. Wound VAC applied to the skin and subcutaneous tissue. No plan to return to the operating room. NG tube probably positioned. ANESTHESIA: General, TAP block. BLOOD TRANSFUSION: 1 unit of blood intraoperatively, 1 unit of blood to be transfused postoperatively. DESCRIPTION OF PROCEDURE: The patient was taken to the operating room where under general anesthesia, abdomen was prepared with ChloraPrep and draped in routine fashion. A midline incision was made about the umbilicus cephalad and carried down to skin, subcutaneous tissue, midline fascia and abdominal cavity sharply. There was some inflammatory fluid, but no purulent material. No foul smelling fluid. This was evacuated. The small bowel was distended evacuated the NG tube. NG tube was replaced and properly positioned. Stomach palpated in good position. As the small bowel had been decompressed, I was able to evaluate the ileocolic anastomosis. There was no evidence of leak, but transverse colon about the ileocolic anastomosis looked ischemic with inflammatory changes. Thus, the ileocolic anastomosis was taken down using the ligature, divided the mesentery and stapler divided the small bowel and colon. Specimen was submitted to Pathology. Healthy colon and small bowel remained. Ileocolic anastomosis was reformed with staple technique with 3 fires of ARTUR 75 blue load stapler, reinforcement of anastomosis with interrupted Lembert suture of 3-0 silk and closed the mesenteric defect with 3-0 and 2-0 silk. The abdominal cavity was thoroughly irrigated with saline solution. Irrigant evacuated. De La Garza catheter was placed, palpated in good position. NG tube in good position. All quadrants of the abdominal cavity thoroughly irrigated with 6 to 8 L of fluid. Once this was completed, sponge and instrument counts were correct. Good hemostasis was assured. Midline fascia was closed with continuous suture of #1 PDS after placing two layers of Seprafilm and pulling the omentum down over the viscera. Small bowel was healthy otherwise. Skin and subcutaneous tissue loosely approximated by approximating the skin about the umbilicus and wound VAC applied. I exchanged my gloves and gowns. Then, using a Seldinger technique, the left subclavian vein triple-lumen catheter was placed, secured with 3-0 silk suture and each port aspirated off blood, and flushed with saline solution. J-wire being removed. Sterile dressing was applied. Job ID: [id number]
[2018-04-13] MEDS: Pantoprazole 40 MG VIAL IVP SCH ×2 (09:23→22:00)
[2018-04-13] MEDS: Ondansetron PF 4 MG/2 ML Vial IVP PRN (11:03)
[2018-04-13] MEDS: Morphine 2 MG/ML SYRINGE SLOW IVP PRN (11:04)
[2018-04-13] MEDS ORDERED: Dextrose 5% in Water 1,000 ML IV PRN (11:41)
[2018-04-13] MEDS ORDERED: Dextrose 50% Abboject 50 ML SYRINGE SLOW IVP PRN (11:41)
[2018-04-13] MEDS ORDERED: Naloxone HCl 0.4 mg/ml Vial IV PRN (12:31)
--- NOTE | 2018-04-13 12:54 | PRG ---
DATE OF SERVICE: 04/13/2018 SUBJECTIVE: Axel Keenan is in the ICU, has been extubated this morning. OBJECTIVE: VITAL SIGNS: Blood pressure 104/69, heart rate 110, temperature 100.7 degrees and now is 99.3 degrees. LUNGS: Clear to auscultation. CARDIAC: Has mild sinus tachycardia, 100 to 110. ABDOMEN: Soft, quiet. No guarding. Midline wound VAC in place. LABORATORY DATA: His white count is 20 and hemoglobin 10.7. Basic metabolic profile is normal with creatinine is mildly elevated at 1.44. GFR 61, phosphorus 4.8, magnesium 1.9. Gastric drainage, postoperatively 700 mL. Urine output 2150 since being in the ICU. ASSESSMENT AND PLAN: Postoperative re-exploration and reopening recent laparotomy with abdominal washout, resection, ileocolonic anastomosis and re-formation of the ileocolonic anastomosis due to what is suspected as ischemic bowel without enteric leakage. The patient has an ileus. We will continue NG tube suction. Initiate TPN. We will increase his activity up in a chair and ambulate hallways. Continue the wound VAC. We will plan to remove his De La Garza tomorrow. Continue IV meropenem. Await GI function. He can have ice chips. We will plan to transfer him to the floor today and I encourage him to be up in a chair and ambulate and to use incentive spirometer frequently. Job ID: [id number]
[2018-04-13] MEDS: Acetaminophen 1,000 MG in Premix Bag 1 BAG IVPB SCH ×3 (13:26→23:47)
[2018-04-13] MEDS: Ketorolac Tromethamine 30 MG/ML VIAL IVP SCH ×3 (13:26→23:32)
[2018-04-13] MEDS: fentaNYL Citrate/PF 2,000 MCG in Sodium Chloride 0.9% 60 ML IV PRN (13:45)
[2018-04-13] MEDS: Enoxaparin Sodium 40 MG/0.4 ML SYRINGE SC SCH (22:00)
--- NOTE | 2018-04-13 22:16 | CON ---
DATE OF CONSULTATION: 04/13/2018 SUBJECTIVE: Mr. Keenan is a gentleman, who underwent surgery last evening for ischemic bowel. He was transferred to the critical care unit and intubated. I was consulted because of his presence in the unit. PAST MEDICAL HISTORY: 1. Remarkable for right colectomy, sigmoid resection, done on 04/06. 2. History of wrist surgery. 3. History of testicular torsion. 4. History of a herniorrhaphy on the right groin with mesh. 5. History of hepatitis C that was treated. 6. History of hypertension. 7. History of reflux disease. SOCIAL HISTORY: He is a nonsmoker. Not a daily drinker. ALLERGIES: HE HAS NO REPORTED DRUG ALLERGIES. FAMILY HISTORY: Negative for lung disease in early age. REVIEW OF SYSTEMS: Ten-point review of systems completed, not obtainable since he was intubated. Sedation was held. He awakened and moved all his extremities. PHYSICAL EXAMINATION: GENERAL: Mr. Keenan is a gentleman, who underwent surgery last evening for ischemic bowel. VITAL SIGNS: Blood pressure this morning was 90/60, heart rate is 104, respiratory rate is 19. HEENT: Pupils are reactive. Sclerae are anicteric. NECK: Supple. LUNGS: Clear. HEART: Regular rhythm. ABDOMEN: Soft and bandaged. EXTREMITIES: Without asymmetry or edema. He moved all four extremities. LABORATORY DATA: White count 20, hemoglobin 10.7, and platelets 230,000. Sodium 146, potassium 4.1, chloride 110, bicarb 25, BUN 20, creatinine 1.44, pH 7.53, CO2 of 32, pO2 of 145. IMPRESSION: Postop mechanical ventilation after exploratory laparotomy, abdominal washout, ileocolic resection with reanastomosis. I felt he was a candidate for extubation. This has been done successfully without any postop respiratory distress or postextubation stridor. We will continue to follow. TIME SPENT: Critical care time, 30 minutes. Job ID: [id number] MTDD
[2018-04-13] MEDS: SODIUM CHLORIDE IV SCH (23:00)
[2018-04-13] MEDS: FAT EMULSION IV SCH (23:00)
[2018-04-13] MEDS: SODIUM ACETATE IV SCH (23:00)
[2018-04-13] MEDS: [UNRECOGNIZED DRUG - OTHER] IV SCH (23:00)
[2018-04-14] MEDS: Albuterol Sulfate 2.5 mg/3 ml Neb NEB SCH ×6 (02:36→22:09)
[2018-04-14] MEDS: Acetaminophen 1,000 MG in Premix Bag 1 BAG IVPB SCH ×3 (05:25→17:36)
[2018-04-14] MEDS: Ketorolac Tromethamine 30 MG/ML VIAL IVP SCH ×3 (05:25→17:37)
[2018-04-14] MEDS: Meropenem 2 GM in Sodium Chloride 0.9% 100 ML IVPB SCH ×3 (05:26→22:55)
[2018-04-14] MEDS: HumaLOG 300 UNITS/3 ML VIAL SC PRN ×3 (06:33→18:49)
[2018-04-14 06:39] LABS: Anion Gap 10 mmol/L (10-20); BUN (Urea Nitrogen) 28 mg/dL (8.4-25.7); Calc. Creatinine Clearance 111 mL/min (70-130); Calcium 7.9 mg/dL (7.8-10.44); Carbon Dioxide 29 mmol/L (22-29); Chloride 111 mmol/L (98-107); Estimated GFR-MDRD 80; Glucose 206 mg/dL (70-105); Potassium 3.6 mmol/L (3.5-5.1); Sodium 146 mmol/L (136-145)
[2018-04-14 08:50] LABS: Band 9 % (5-11); Eosinophils 2 % (0-10); Hemoglobin 9.2 g/dL (14.0-18.0); Lymphocytes 6 % (21-51); MDiff Complete? YES; Mean Corpuscular HGB CONC 33.4 g/dL (32.0-36.0); Mean Corpuscular Volume 92.8 fL (78.0-98.0); Mean Platelet Volume 9.2 fL (7.4-10.4); Neutrophil 83 % (42-75); Platelet Count 214 thou/uL (130-400); Red Blood Cell (RBC) Count 2.98 mill/uL (4.70-6.10); White Blood Cell (WBC) Count 19.3 thou/uL (4.8-10.8)
[2018-04-14] MEDS: Pantoprazole 40 MG VIAL IVP SCH ×2 (09:05→21:46)
[2018-04-14] MEDS: Lactated Ringer's 1,000 ML IV SCH ×3 (09:08→21:46)
--- NOTE | 2018-04-14 15:23 | PRG ---
DATE OF SERVICE: 04/14/2018 SUBJECTIVE: He is doing fairly well today. He complains of postoperative pain. OBJECTIVE: VITAL SIGNS: Temperature 97.9 degrees, heart rate 64 to 100, respiratory rate 22, and blood pressure 115/63. NG tube output 1000 mL today. Urine output 1270. De La Garza removed. He has been voiding spontaneously. LUNGS: Clear to auscultation. CARDIAC: Regular rate and rhythm without murmur or gallop. ABDOMEN: Soft, protuberant, baseline obese, quad. Wound VAC in place, skin and subcutaneous tissues. EXTREMITIES: Unremarkable. LABORATORY DATA: White count down to 19,000 today and hemoglobin 9.2. Sodium 146, chloride 111, and BUN 28. ASSESSMENT AND PLAN: Postoperative ileus as expected from laparotomy from resection of ileocolonic anastomosis. The patient's pain is better than preoperatively, although he has had a component of his postoperative pain, which is pretty well controlled on the SOCKET PULLER pump. The patient has been up in a chair, ambulated about the room, but not in the hallways. He is using incentive spirometer. He is on TPN. Postop ileus as expected, continue TPN and NG tube. Job ID: [id number]
[2018-04-14] MEDS: Enoxaparin Sodium 40 MG/0.4 ML SYRINGE SC SCH (21:46)
[2018-04-14] MEDS: [UNRECOGNIZED DRUG - OTHER] IV SCH (22:57)
[2018-04-14] MEDS: SODIUM CHLORIDE IV SCH (22:57)
[2018-04-14] MEDS: SODIUM ACETATE IV SCH (22:57)
[2018-04-14] MEDS: FAT EMULSION IV SCH (22:57)
[2018-04-15] MEDS: Ketorolac Tromethamine 30 MG/ML VIAL IVP SCH ×4 (00:40→17:40)
[2018-04-15] MEDS: Acetaminophen 1,000 MG in Premix Bag 1 BAG IVPB SCH ×4 (00:40→17:40)
[2018-04-15] MEDS: Albuterol Sulfate 2.5 mg/3 ml Neb NEB SCH ×6 (02:32→22:16)
[2018-04-15] MEDS: HumaLOG 300 UNITS/3 ML VIAL SC PRN ×3 (06:45→17:48)
[2018-04-15] MEDS: Meropenem 2 GM in Sodium Chloride 0.9% 100 ML IVPB SCH ×3 (06:45→21:12)
[2018-04-15] MEDS: Pantoprazole 40 MG VIAL IVP SCH ×2 (09:58→21:12)
[2018-04-15] MEDS: Lactated Ringer's 1,000 ML IV SCH ×2 (09:58→17:26)
--- NOTE | 2018-04-15 19:20 | PRG ---
DATE OF SERVICE: 04/15/2018 SUBJECTIVE: Mr. Keenan is doing better today. His NG tube fell out in the shower, nurses had problem with replacing it; we replaced it at the bedside. He has had too much volume out, would consider leaving it out at this time. OBJECTIVE: VITAL SIGNS: 97.7 degrees, 91, 128/77. Gastric output, 2500 in the last 24 hours. LUNGS: Clear to auscultation. CARDIAC: Regular rate and rhythm without murmur or gallop. ABDOMEN: Quiet. Wound VAC was changed and his wound looked healthy. LABORATORY DATA: No CBC today. No basic met today. Accu-Cheks 247 to 212 and on TPN. ASSESSMENT AND PLAN: 1. Continued ileus as expected. Continue TPN, IV fluids. Replace NG tube. Avoid gastrointestinal function. 2. Open skin and subcutaneous tissue. Continue wound VAC. Job ID: [id number]
[2018-04-15] MEDS: Enoxaparin Sodium 40 MG/0.4 ML SYRINGE SC SCH (21:12)
[2018-04-15] MEDS: SODIUM ACETATE IV SCH (22:17)
[2018-04-15] MEDS: FAT EMULSION IV SCH (22:17)
[2018-04-15] MEDS: SODIUM CHLORIDE IV SCH (22:17)
[2018-04-15] MEDS: [UNRECOGNIZED DRUG - OTHER] IV SCH (22:17)
[2018-04-16] MEDS: Ketorolac Tromethamine 30 MG/ML VIAL IVP SCH ×4 (01:08→17:39)
[2018-04-16] MEDS: Acetaminophen 1,000 MG in Premix Bag 1 BAG IVPB SCH ×3 (01:11→12:14)
[2018-04-16] MEDS: Albuterol Sulfate 2.5 mg/3 ml Neb NEB SCH ×6 (02:22→21:55)
[2018-04-16] MEDS: Lactated Ringer's 1,000 ML IV SCH ×2 (04:36→05:40)
[2018-04-16] MEDS: Meropenem 2 GM in Sodium Chloride 0.9% 100 ML IVPB SCH ×3 (05:47→21:54)
[2018-04-16] MEDS ORDERED: Furosemide 40 MG/4 ML VIAL SLOW IVP SCH (07:00)
[2018-04-16] MEDS: HumaLOG 300 UNITS/3 ML VIAL SC PRN ×3 (07:07→18:38)
--- NOTE | 2018-04-16 07:46 | RAD ---
TWO VIEWS CHEST: DATE: 04/16/2018. PROVIDED CLINICAL HISTORY: Shortness of breath. COMPARISON: 04/12/2018. FINDINGS: The cardiac silhouette appears enlarged. There is prominence of the pulmonary vasculature and pulmon mike interstitium. Left subclavian cardiac pacing device is redemonstrated. Probable partially visua lized enteric catheter. Bilateral pleural effusions are seen. No evidence for pneumothorax. IMPRESSION: Findings suggesting congestive failure/volume overload with bilateral pleural effusions. POS: [facility]
[2018-04-16 08:58] LABS: Anion Gap 12 mmol/L (10-20); BUN (Urea Nitrogen) 20 mg/dL (8.4-25.7); Calc. Creatinine Clearance 135 mL/min (70-130); Calcium 8.3 mg/dL (7.8-10.44); Carbon Dioxide 28 mmol/L (22-29); Chloride 110 mmol/L (98-107); Estimated GFR-MDRD Greater than 90; Glucose 227 mg/dL (70-105); Potassium 3.2 mmol/L (3.5-5.1); Sodium 147 mmol/L (136-145)
[2018-04-16 09:04] LABS: Band 24 % (5-11); Eosinophils 3 % (0-10); Hemoglobin 8.5 g/dL (14.0-18.0); Lymphocytes 10 % (21-51); MDiff Complete? YES; Mean Corpuscular HGB CONC 32.3 g/dL (32.0-36.0); Mean Corpuscular Hemoglobin 30.6 pg (27.0-31.0); Mean Corpuscular Volume 94.6 fL (78.0-98.0); Mean Platelet Volume 9.7 fL (7.4-10.4); Monocytes 4 % (0-10); Neutrophil 59 % (42-75); Phosphorus 1.9 mg/dL (2.3-4.7); Platelet Count 209 thou/uL (130-400); RBC Distribution Width 14.5 % (11.5-14.5); Red Blood Cell (RBC) Count 2.76 mill/uL (4.70-6.10); White Blood Cell (WBC) Count 14.1 thou/uL (4.8-10.8)
[2018-04-16] MEDS: Pantoprazole 40 MG VIAL IVP SCH ×2 (09:29→21:51)
[2018-04-16] MEDS: Furosemide 40 MG/4 ML VIAL SLOW IVP SCH (13:04)
--- NOTE | 2018-04-16 20:14 | PRG ---
DATE OF SERVICE: 04/16/2018 SERVICE: Pulmonary Medicine. REASON FOR VISIT: Respiratory failure. INTERVAL HISTORY: The patient was extubated comfortably a couple of days ago. That being said, he was on TPN as well as IV fluids. He is getting over 200 an hour for day and a half. This morning, he was found to be visibly dyspneic and hypoxemic. He is extremely wet. He got a nebulized medication and was given Lasix. Slowly over the next 2 hours, his respiratory distress resolved. He is still a little bit crackle. He denies any current fevers or chills. He did cough up a little bit of sputum today. OBJECTIVE: VITAL SIGNS: Afebrile, pulse 100, blood pressure 136/76, respirations 16, saturation 95% on 3 L nasal cannula. GENERAL: The patient is awake and alert. No apparent distress. LUNGS: Excellent air entry. There is a prolonged expiratory phase. Extensive crackles are still present. HEART: Normal rate and regular. ABDOMEN: Soft, nontender, and nondistended. Bowel sounds are positive. MUSCULOSKELETAL: No cyanosis or clubbing. There is trace to 1+ pitting in bilateral lower extremities. NEUROLOGIC: Grossly nonfocal. LABORATORY DATA: WBC 14.1 and downtrending, hemoglobin 8.5, and platelets 209,000. Band count is 24%. Sodium 147 and uptrending, potassium 3.2, phosphorus 1.9. DIAGNOSTIC DATA: Chest x-ray demonstrates findings consistent with volume overloading including cephalization, pulmonary vascular congestion, bilateral pleural effusions, widened carinal angle. There is an enteric catheter coursing below the level of the diaphragm and a left subclavian central venous catheter which terminates in a good position. Interstitial fullness is likely accentuated by low lung volumes. ASSESSMENT: 1. Acute hypoxic respiratory failure. 2. Volume overload, iatrogenic. 3. Ileus. 4. Ileocolic resection with primary reanastomosis, postop day #4. DISCUSSION AND PLAN: We will schedule our Lasix through time. His normal saline will be interrupted and I will start up a little bit of D5 water to prevent the sodiums from climbing. Pulmonary/Critical Care will continue to follow along for now. We will need to watch his volume status closely. Job ID: [id number]
[2018-04-16] MEDS: Enoxaparin Sodium 40 MG/0.4 ML SYRINGE SC SCH (21:52)
[2018-04-16] MEDS: FAT EMULSION IV SCH (22:17)
[2018-04-16] MEDS: [UNRECOGNIZED DRUG - OTHER] IV SCH (22:17)
[2018-04-16] MEDS: SODIUM ACETATE IV SCH (22:17)
[2018-04-16] MEDS: SODIUM CHLORIDE IV SCH (22:17)
[2018-04-17] MEDS: HumaLOG 300 UNITS/3 ML VIAL SC PRN ×2 (00:27→06:54)
[2018-04-17] MEDS: Ketorolac Tromethamine 30 MG/ML VIAL IVP SCH ×4 (00:30→16:34)
[2018-04-17] MEDS: Albuterol Sulfate 2.5 mg/3 ml Neb NEB SCH ×6 (01:32→22:09)
[2018-04-17 06:23] LABS: Anion Gap 11 mmol/L (10-20); BUN (Urea Nitrogen) 20 mg/dL (8.4-25.7); Calc. Creatinine Clearance 150 mL/min (70-130); Calcium 8.5 mg/dL (7.8-10.44); Carbon Dioxide 29 mmol/L (22-29); Chloride 110 mmol/L (98-107); Estimated GFR-MDRD Greater than 90; Glucose 155 mg/dL (70-105); Magnesium 1.8 mg/dL (1.6-2.6); Potassium 3.3 mmol/L (3.5-5.1); Sodium 147 mmol/L (136-145)
[2018-04-17] MEDS: Furosemide 40 MG/4 ML VIAL SLOW IVP SCH ×2 (06:38→14:16)
[2018-04-17] MEDS: Meropenem 2 GM in Sodium Chloride 0.9% 100 ML IVPB SCH ×3 (06:38→21:26)
[2018-04-17 08:21] LABS: Band 15 % (5-11); Hemoglobin 10.2 g/dL (14.0-18.0); Lymphocytes 17 % (21-51); MDiff Complete? YES; Mean Corpuscular HGB CONC 31.6 g/dL (32.0-36.0); Mean Corpuscular Hemoglobin 29.8 pg (27.0-31.0); Mean Corpuscular Volume 94.2 fL (78.0-98.0); Mean Platelet Volume 10.4 fL (7.4-10.4); Monocytes 4 % (0-10); Neutrophil 64 % (42-75); Platelet Count 233 thou/uL (130-400); RBC Distribution Width 14.9 % (11.5-14.5); Red Blood Cell (RBC) Count 3.44 mill/uL (4.70-6.10); White Blood Cell (WBC) Count 13.1 thou/uL (4.8-10.8)
[2018-04-17] MEDS: Pantoprazole 40 MG VIAL IVP SCH ×2 (08:43→21:27)
[2018-04-17 10:14] LABS: Base Excess (BEa) 7.8 mEq/L (-2.0 to +3.0); CO2 Tension 43.3 mmHg (35.0-45.0); Calcium, Ionized 1.15 mmol/L (1.12-1.30); Carboxyhemoglobin (COHb) 1.7 gm% (0.0-3.0); Hemoglobin (Hb) 8.2 g/dL (14.0-18.0); O2 Tension (PaO2) 77.6 mmHg (80.0-100.0); Potassium - ABG Lab 3.18 mmol/L (3.70-5.30); pH, Arterial 7.49 (7.35-7.45)
[2018-04-17 10:15] LABS: Puncture Site LRA
[2018-04-17] MEDS: Dextrose 5% in Water 1,000 ML IV PRN (15:30)
[2018-04-17] MEDS ORDERED: Potassium Chloride 40 MEQ in Premix Bag 1 BAG IVPB SCH ×2 (18:45→23:59)
[2018-04-17] MEDS ORDERED: Potassium Phosphate 15 MMOL in Sodium Chloride 0.9% 250 ML 250 ML IVPB SCH (18:45)
--- NOTE | 2018-04-17 18:53 | PRG ---
DATE OF SERVICE: 04/17/2018 SERVICE: Pulmonary Medicine. INTERVAL HISTORY: The patient was having some difficulty with breathing once again this morning. He ended up getting a couple doses of Lasix. His breathing settled down a little bit. He denies any current chest pain, fevers, or chills. He has no nausea or vomiting. He is passing a bit of gas, but otherwise, had not had a robust bowel movement. PHYSICAL EXAMINATION: VITAL SIGNS: Afebrile currently. Pulse 108, blood pressure 133/76, respirations 18, and saturation 97% on 2 L nasal cannula. GENERAL: The patient is awake, alert, in no apparent distress. LUNGS: Decent air entry. There is no prolonged expiratory phase. Crackles are present. No wheezing or rhonchi are appreciated. HEART: Normal rate, regular. ABDOMEN: Soft, nontender, and nondistended. Bowel sounds are positive. MUSCULOSKELETAL: No cyanosis or clubbing. No pitting in the bilateral lower extremities. NEUROLOGIC: Grossly nonfocal. LABORATORY DATA: WBC 13.1, hemoglobin 10.2, platelets 233,000. PH 7.49, pCO2 of 43, pO2 of 77 on 3 L nasal cannula at the time, corresponding to a saturation of 96%. Sodium 147, which is stable, potassium 3.3. Basic metabolic profile is otherwise unremarkable. Phosphorus 2.0. ASSESSMENT: 1. Acute hypoxic respiratory failure. 2. Volume overload, secondary to TPN and IV fluids. 3. Ileus, starting to slowly improve. 4. Ileocolic resection with primary reanastomosis, postop day 5. DISCUSSION AND PLAN: Replace the potassium and phosphorus. We need to continue our free water through time. Pulmonary/Critical Care will continue to follow until his respiratory issues resolve more completely. Job ID: [id number]
[2018-04-17] MEDS: Enoxaparin Sodium 40 MG/0.4 ML SYRINGE SC SCH (21:27)
--- NOTE | 2018-04-17 21:46 | PRG ---
DATE OF SERVICE: SUBJECTIVE: Axel Keenan is doing well today. He is feeling better as far as his pain. NG tube output is mostly clear drainage 1825 over the last 24 hours. He is taking copious chips. He reports a small bowel movement today, perhaps some of the old blood. He is voiding adequately. Has copious urine output of more than 3.5 L. OBJECTIVE: VITAL SIGNS: Temperature 97.7 degrees, heart rate 101, respiratory rate 20, and blood pressure 150/89. LUNGS: Clear to auscultation. CARDIAC: Regular rate and rhythm without murmur or gallop. ABDOMEN: Soft, nontympanetic, nondistended. Wound looks good. LABORATORY DATA: White count 13, hemoglobin 10. Basic metabolic profile, unremarkable. He is on TPN and LR KVO for PUBLIC HEALTH INFORMATICIAN. ASSESSMENT AND PLAN: Postoperatively, doing well. We would recommend clamping his NG tube at this time and calling me with a residual at 2100, hopefully, to remove it to allow him to sleep without it tonight. Continue total parenteral nutrition at this point. Overall, he seems to be doing well and hope to advance his diet tomorrow and discontinue his PUBLIC HEALTH INFORMATICIAN in the next 24 to 48 hours. Job ID: [id number]
[2018-04-17] MEDS: SODIUM ACETATE IV SCH (22:16)
[2018-04-17] MEDS: SODIUM CHLORIDE IV SCH (22:16)
[2018-04-17] MEDS: [UNRECOGNIZED DRUG - OTHER] IV SCH (22:16)
[2018-04-17] MEDS: FAT EMULSION IV SCH (22:16)
[2018-04-18] MEDS: Ketorolac Tromethamine 30 MG/ML VIAL IVP SCH ×3 (01:51→12:32)
[2018-04-18] MEDS: Albuterol Sulfate 2.5 mg/3 ml Neb NEB SCH ×6 (01:57→22:03)
[2018-04-18] MEDS: HumaLOG 300 UNITS/3 ML VIAL SC PRN ×4 (03:37→23:48)
[2018-04-18] MEDS: Furosemide 40 MG/4 ML VIAL SLOW IVP SCH ×2 (06:42→12:34)
[2018-04-18] MEDS: Meropenem 2 GM in Sodium Chloride 0.9% 100 ML IVPB SCH ×3 (06:43→22:42)
[2018-04-18 06:57] LABS: Anion Gap 11 mmol/L (10-20); BUN (Urea Nitrogen) 20 mg/dL (8.4-25.7); Calc. Creatinine Clearance 145 mL/min (70-130); Calcium 8.3 mg/dL (7.8-10.44); Carbon Dioxide 27 mmol/L (22-29); Chloride 108 mmol/L (98-107); Estimated GFR-MDRD Greater than 90; Glucose 185 mg/dL (70-105); Phosphorus 2.9 mg/dL (2.3-4.7); Potassium 3.5 mmol/L (3.5-5.1); Sodium 142 mmol/L (136-145)
[2018-04-18] MEDS: Pantoprazole 40 MG VIAL IVP SCH ×2 (08:43→20:33)
--- NOTE | 2018-04-18 18:10 | PRG ---
DATE OF SERVICE: 04/18/2018 SUBJECTIVE: Axel Keenan is doing well today. He has passed some stool and a little flatus. He complains of abdominal distention. His NG tube was removed yesterday. Last night, after clamping his NG tube for 8 hours, his residual was less than 20 mL. It was removed. OBJECTIVE: VITAL SIGNS: Temperature 98.6 degrees, heart rate 100, respiratory rate 20, and blood pressure 124/78. HEAD, EARS, EYES, NOSE, AND THROAT: Unremarkable. LUNGS: Clear to auscultation. CARDIAC: Regular rate and rhythm without murmur or gallop. ABDOMEN: Soft, mild distention, mild tympany. Bowel sounds present. LABORATORY DATA: Basic metabolic today with sodium 142, potassium 3.5, and glucose 185. Accu-Cheks 185 and 208. ASSESSMENT AND PLAN: The patient is doing well today. He continues on TPN. Awaiting better bowel function. 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 Job ID: [id number]
[2018-04-18] MEDS: Enoxaparin Sodium 40 MG/0.4 ML SYRINGE SC SCH (20:33)
[2018-04-18] MEDS: [UNRECOGNIZED DRUG - OTHER] IV SCH (22:42)
[2018-04-18] MEDS: SODIUM CHLORIDE IV SCH (22:42)
[2018-04-18] MEDS: SODIUM ACETATE IV SCH (22:42)
[2018-04-18] MEDS: FAT EMULSION IV SCH (22:42)
[2018-04-19] MEDS: Dextrose 5% in Water 1,000 ML IV PRN
[2018-04-19] MEDS: Albuterol Sulfate 2.5 mg/3 ml Neb NEB SCH ×6 (02:10→23:53)
[2018-04-19] MEDS: Furosemide 40 MG/4 ML VIAL SLOW IVP SCH ×2 (05:14→14:18)
[2018-04-19] MEDS: Meropenem 2 GM in Sodium Chloride 0.9% 100 ML IVPB SCH ×3 (05:14→22:50)
[2018-04-19] MEDS: HumaLOG 300 UNITS/3 ML VIAL SC PRN ×3 (06:28→19:46)
[2018-04-19 07:10] LABS: Anion Gap 11 mmol/L (10-20); BUN (Urea Nitrogen) 18 mg/dL (8.4-25.7); Calc. Creatinine Clearance 146 mL/min (70-130); Calcium 8.4 mg/dL (7.8-10.44); Carbon Dioxide 28 mmol/L (22-29); Chloride 105 mmol/L (98-107); Estimated GFR-MDRD Greater than 90; Glucose 190 mg/dL (70-105); Phosphorus 2.7 mg/dL (2.3-4.7); Potassium 3.5 mmol/L (3.5-5.1); Sodium 140 mmol/L (136-145)
[2018-04-19] MEDS: fentaNYL Citrate/PF 2,000 MCG in Sodium Chloride 0.9% 60 ML IV PRN (07:11)
[2018-04-19] MEDS: Pantoprazole 40 MG VIAL IVP SCH ×2 (08:34→20:57)
[2018-04-19] MEDS ORDERED: Acetaminophen 500 MG TAB PO SCH (10:30)
[2018-04-19] MEDS ORDERED: traMADol HCl 50 MG TAB PO PRN (10:30)
[2018-04-19] MEDS ORDERED: Ketorolac Tromethamine 30 MG/ML VIAL IVP PRN (11:27)
[2018-04-19] MEDS: Ketorolac Tromethamine 30 MG/ML VIAL IVP SCH ×3 (11:29→23:36)
--- NOTE | 2018-04-19 11:58 | PRG ---
DATE OF SERVICE: 04/19/2018 SUBJECTIVE: Axel Keenan is doing well today. He has had three greenish bowel movements. OBJECTIVE: VITAL SIGNS: Heart rate 103 to 106, respiratory rate 20 to 22, saturation 96% to 97%, and blood pressure 137/65. The patient is urinating without problems. He has had 3.4 L out in the last 24 hours. He has TKO IV fluid for his NATIONAL INVESTIGATIVE PRODUCER, which he is using infrequently. He has TPN running. LUNGS: Clear to auscultation. CARDIAC: Regular rate and rhythm without murmur or gallop. ABDOMEN: Soft. Bowel sounds present. EXTREMITIES: Wound VAC in place. Yesterday, the wound looked good. The subcutaneous tissue was slightly desiccated with developing granulation tissue, certainly no infection. Fascia is covered with granulation tissue. ASSESSMENT AND PLAN: Recovering ileus after two operations, 04/06/2018 and 04/12/2018. We would increase him to full liquids. He is not using his NATIONAL INVESTIGATIVE PRODUCER much and we would continue that. We would introduce Tylenol scheduled q.i.d., Ultram p.r.n. We would restart Toradol q.6 hours scheduled to continue until . If he is doing well, this can be discontinued. Toradol can be used p.r.n. If he does well as far as his pain today, I think we could stop his NATIONAL INVESTIGATIVE PRODUCER and discontinue his TKO IV fluids. Dr. Tinoco is covering tomorrow. Hopefully, TPN can be discontinued within the next 48 to 72 hours and his diet advanced per clinical progression. Outpatient wound VAC would need to be arranged. Job ID: [id number]
[2018-04-19] MEDS: Enoxaparin Sodium 40 MG/0.4 ML SYRINGE SC SCH (20:57)
[2018-04-19] MEDS: SODIUM CHLORIDE IV SCH (22:38)
[2018-04-19] MEDS: FAT EMULSION IV SCH (22:38)
[2018-04-19] MEDS: [UNRECOGNIZED DRUG - OTHER] IV SCH (22:38)
[2018-04-19] MEDS: SODIUM ACETATE IV SCH (22:38)
[2018-04-20] MEDS: Albuterol Sulfate 2.5 mg/3 ml Neb NEB SCH ×6 (02:19→22:22)
[2018-04-20] MEDS: Furosemide 40 MG/4 ML VIAL SLOW IVP SCH ×2 (05:37→13:45)
[2018-04-20] MEDS: Meropenem 2 GM in Sodium Chloride 0.9% 100 ML IVPB SCH ×3 (05:38→21:35)
[2018-04-20] MEDS: Ketorolac Tromethamine 30 MG/ML VIAL IVP SCH ×3 (05:38→17:41)
[2018-04-20] MEDS: HumaLOG 300 UNITS/3 ML VIAL SC PRN ×3 (05:57→18:33)
[2018-04-20 09:01] LABS: Anion Gap 11 mmol/L (10-20); BUN (Urea Nitrogen) 20 mg/dL (8.4-25.7); Calc. Creatinine Clearance 143 mL/min (70-130); Carbon Dioxide 29 mmol/L (22-29); Chloride 102 mmol/L (98-107); Estimated GFR-MDRD Greater than 90; Glucose 201 mg/dL (70-105); Phosphorus 2.8 mg/dL (2.3-4.7); Potassium 3.7 mmol/L (3.5-5.1); Sodium 138 mmol/L (136-145)
[2018-04-20] MEDS: Polyethylene Glycol 3350 17 GM Packet PO SCH (09:03)
[2018-04-20] MEDS: Pantoprazole 40 MG VIAL IVP SCH ×2 (09:03→21:36)
--- NOTE | 2018-04-20 19:14 | PRG ---
DATE OF SERVICE: 04/20/2018 SUBJECTIVE: Mr. Keenan is postoperative day #8 following exploratory laparotomy with abdominal washout and ileocolic resection. He had prior laparoscopic right hemicolectomy and laparoscopic low anterior resection performed by Dr. Wilburn on April 06. I am seeing the patient in Dr. Wilburn's absence since he is out of town today. The patient remains on TPN with TOBACCO BLENDER. He is also getting additional IV fluids. He continues to receive intravenous antibiotics as well, receiving meropenem. He also remains on Toradol. The patient tells me he is feeling better. He has been on a full liquid diet. He tells me that he has been tolerating some of this. He denies nausea or vomiting. He tells me he did have a bowel movement yesterday. He notes this was green in color. He is beginning to increase his activity as well. OBJECTIVE: VITAL SIGNS: Temperature is 98.1, he has been afebrile. Pulse is elevated between 99 to 110. His blood pressure is within normal limits at 114/67. GENERAL: He is a pleasant man, resting in bed. He is alert and oriented x3. He appears to be somewhat short of breath at rest. Both he and his as well as his nurse tells me that he looks better today than he has in the past several days. LUNGS: Clear to auscultation. ABDOMEN: Appears to be mildly distended. He has no focal tenderness. Bowel sounds are very hypoactive. Wound VAC is intact. LABORATORY DATA: His last CBC was checked on April 17. His basic metabolic panel reveals normal electrolytes. His glucose is a little elevated at 201. Phosphorus is normal. ASSESSMENT: Based upon the patient and his nurses assessment, he appears to be improving. I have encouraged him to continue to increase his oral intake and ambulate. I have encouraged him to diminish his TOBACCO BLENDER use and will likely discontinue his TOBACCO BLENDER in favor of oral pain medication. He tells me he really does not have very much pain. We will recheck his labs tomorrow. As soon as he is able to advance his diet, then we can wean his TPN and plan for discharge. Job ID: [id number]
[2018-04-20] MEDS: Enoxaparin Sodium 40 MG/0.4 ML SYRINGE SC SCH (21:35)
[2018-04-20] MEDS: [UNRECOGNIZED DRUG - OTHER] IV SCH (22:35)
[2018-04-20] MEDS: SODIUM ACETATE IV SCH (22:35)
[2018-04-20] MEDS: FAT EMULSION IV SCH (22:35)
[2018-04-20] MEDS: SODIUM CHLORIDE IV SCH (22:35)
[2018-04-21] MEDS: Ketorolac Tromethamine 30 MG/ML VIAL IVP SCH ×3 (00:58→13:29)
[2018-04-21] MEDS: Albuterol Sulfate 2.5 mg/3 ml Neb NEB SCH ×6 (02:58→22:35)
[2018-04-21] MEDS: Furosemide 40 MG/4 ML VIAL SLOW IVP SCH ×2 (05:26→13:29)
[2018-04-21] MEDS: Meropenem 2 GM in Sodium Chloride 0.9% 100 ML IVPB SCH ×3 (05:26→21:33)
[2018-04-21] MEDS: HumaLOG 300 UNITS/3 ML VIAL SC PRN ×3 (05:27→17:01)
[2018-04-21 06:49] LABS: #Eosinphils 0.2 thou/uL (0.0-0.7); #Lymphocytes 2.7 thou/uL (1.20-3.40); #Monocytes 1.3 thou/uL (0.11-0.59); #Neutrophils 11.2 thou/uL (1.40-6.50); %Basophils 0.2 % (0.0-1.0); %Eosinophils 1.4 % (0.0-10.0); %Lymphocytes 17.5 % (21.0-51.0); %Monocytes 8.5 % (0.0-10.0); %Neutrophils 72.4 % (42.0-75.0); Hemoglobin 7.3 g/dL (14.0-18.0); Mean Corpuscular HGB CONC 31.8 g/dL (32.0-36.0); Mean Corpuscular Hemoglobin 29.4 pg (27.0-31.0); Mean Corpuscular Volume 92.3 fL (78.0-98.0); Mean Platelet Volume 10.5 fL (7.4-10.4); Platelet Count 496 thou/uL (130-400); RBC Distribution Width 15.8 % (11.5-14.5); Red Blood Cell (RBC) Count 2.49 mill/uL (4.70-6.10); White Blood Cell (WBC) Count 15.5 thou/uL (4.8-10.8)
[2018-04-21 07:07] LABS: Anion Gap 12 mmol/L (10-20); BUN (Urea Nitrogen) 19 mg/dL (8.4-25.7); Calc. Creatinine Clearance 137 mL/min (70-130); Calcium 8.3 mg/dL (7.8-10.44); Carbon Dioxide 29 mmol/L (22-29); Chloride 103 mmol/L (98-107); Estimated GFR-MDRD Greater than 90; Glucose 192 mg/dL (70-105); Phosphorus 3.3 mg/dL (2.3-4.7); Potassium 3.9 mmol/L (3.5-5.1); Sodium 140 mmol/L (136-145)
[2018-04-21] MEDS: Polyethylene Glycol 3350 17 GM Packet PO SCH (08:51)
[2018-04-21] MEDS: Pantoprazole 40 MG VIAL IVP SCH ×2 (08:51→21:33)
--- NOTE | 2018-04-21 10:00 | RAD ---
ABDOMINAL SURVEY WITH UPRIGHT CHEST AND TWO VIEW ABDOMEN: Indications: Ileus. Pneumonia. Comparison: Chest exam, 04-16-18. FINDINGS: Lungs again show mild vascular congestion and interstitial prominence suggesting mild diffuse interst itial edema. There is scattered stranding bilaterally, slightly more prominent than left lung base. C entral line is unchanged in position. No evidence of free intraperitoneal air. Views of the abdomen show mild gaseous distention of the colon. There is some scattered small bowel g as which appears nonspecific. Skin viridiana overlie the lower midline. IMPRESSION: Mild gaseous distention of the colon. Nonspecific small bowel gas. POS: [facility]
[2018-04-21] MEDS ORDERED: Ketorolac Tromethamine 30 MG/ML VIAL IVP PRN (18:00)
--- NOTE | 2018-04-21 19:16 | PRG ---
DATE OF SERVICE: 04/21/2018 SUBJECTIVE: Mr. Keenan is postoperative day #9 following exploratory laparotomy with abdominal washout and ileocolic resection and reanastomosis. He had prior laparoscopic right hemicolectomy and low anterior resection performed by Dr. Wilburn on April 06. Mr. Keenan has no significant change in his course at this time. He has no new complaints. He still notes minimal pain. He feels as though he is tolerating his diet better. He notes he has had a couple of bowel movements. He is not ambulating significantly yet. He still has a VAC on his midline abdominal wound. X-rays obtained today revealed no evidence of any pneumonia or pulmonary problem. He has some dilated loops of bowel, both small bowel and colon, but this does not appear to be consistent with a bowel obstruction. He was noted, at last night when I examined him, to have significant tympanitic bowel sounds, which seem diminished today. OBJECTIVE: VITAL SIGNS: He remains tachycardic with a heart rate between 92 and 110. Blood pressure is intermittently low with a blood pressure of 93/50 this evening. LUNGS: Clear to auscultation. ABDOMEN: Mildly distended with some minimal tympanitic bowel sounds. There is minimal tenderness currently. LABORATORY DATA: CBC reveals elevated white blood cell count of 15.5, it was 13.1 when last checked on April 17 (4 days ago). Hemoglobin is also low at 7.3 and it was 10.2 on April 17. His platelet count is elevated at 496 and it was 233 when last checked. His chemistry panel is entirely unremarkable except for his glucose levels which run between 190 and 200 typically. ASSESSMENT: The patient with persistent tachycardia and new anemia following his colon resection. He has previously been transfused with 3 units of packed red blood cells on April 10 and April 12. He has no obvious source of ongoing bleeding currently. We will follow his hemoglobin and transfuse him as necessary. I am also not certain why he has the elevated white blood cell count. He remains on meropenem and is afebrile. I hope to be able to wean down his TPN as he has been on full liquids for a couple of days. He is clearly not ready for discharge at this time. We will continue some TPN support with antibiotics and physical therapy and serial examinations of his hemoglobin level. Job ID: [id number]
[2018-04-21] MEDS: Enoxaparin Sodium 40 MG/0.4 ML SYRINGE SC SCH (21:33)
[2018-04-21] MEDS: FAT EMULSION IV SCH (22:44)
[2018-04-21] MEDS: SODIUM ACETATE IV SCH (22:44)
[2018-04-21] MEDS: [UNRECOGNIZED DRUG - OTHER] IV SCH (22:44)
[2018-04-21] MEDS: SODIUM CHLORIDE IV SCH (22:44)
[2018-04-22] MEDS: Albuterol Sulfate 2.5 mg/3 ml Neb NEB SCH ×6 (02:16→23:11)
[2018-04-22] MEDS: Furosemide 40 MG/4 ML VIAL SLOW IVP SCH ×2 (05:16→13:04)
[2018-04-22] MEDS: Meropenem 2 GM in Sodium Chloride 0.9% 100 ML IVPB SCH ×3 (05:16→21:09)
[2018-04-22 06:38] LABS: #Eosinphils 0.2 thou/uL (0.0-0.7); #Lymphocytes 2.8 thou/uL (1.20-3.40); #Monocytes 1.4 thou/uL (0.11-0.59); #Neutrophils 12.6 thou/uL (1.40-6.50); %Basophils 0.1 % (0.0-1.0); %Eosinophils 1.2 % (0.0-10.0); %Lymphocytes 16.5 % (21.0-51.0); %Neutrophils 74.2 % (42.0-75.0); Hemoglobin 7.5 g/dL (14.0-18.0); Mean Corpuscular HGB CONC 31.3 g/dL (32.0-36.0); Mean Corpuscular Volume 92.6 fL (78.0-98.0); Mean Platelet Volume 10.7 fL (7.4-10.4); Platelet Count 521 thou/uL (130-400); RBC Distribution Width 15.9 % (11.5-14.5)
[2018-04-22] MEDS: HumaLOG 300 UNITS/3 ML VIAL SC PRN ×3 (06:42→18:25)
[2018-04-22 07:09] LABS: ALT (SGPT) 99 U/L (8-55); AST (SGOT) 63 U/L (5-34); Albumin 2.4 g/dL (3.5-5.0); Alkaline Phosphatase 155 U/L (40-150); Anion Gap 11 mmol/L (10-20); BUN (Urea Nitrogen) 16 mg/dL (8.4-25.7); Bilirubin, Total 1.3 mg/dL (0.2-1.2); Calc. Creatinine Clearance 146 mL/min (70-130); Calcium 8.5 mg/dL (7.8-10.44); Carbon Dioxide 29 mmol/L (22-29); Chloride 101 mmol/L (98-107); Estimated GFR-MDRD Greater than 90; Globulin 5.3 g/dL (2.4-3.5); Glucose 187 mg/dL (70-105); Magnesium 1.8 mg/dL (1.6-2.6); Phosphorus 2.6 mg/dL (2.3-4.7); Potassium 3.9 mmol/L (3.5-5.1); Protein, Total 7.7 g/dL (6.0-8.3); Sodium 137 mmol/L (136-145)
[2018-04-22] MEDS ORDERED: Iopamidol-370 76% 500 ML 1 ML ONE (09:00)
[2018-04-22] MEDS: Polyethylene Glycol 3350 17 GM Packet PO SCH (09:30)
[2018-04-22] MEDS: Pantoprazole 40 MG VIAL IVP SCH ×2 (09:30→21:09)
--- NOTE | 2018-04-22 14:12 | CT ---
ABDOMEN CT WITH CONTRAST PELVIC CT WITH CONTRAST: COMPARISON: 04/10/2018. TECHNIQUE: Abdomen and pelvic CT are performed with IV and oral contrast. Coronal reformatted images are submit aubrie for interpretation. FINDINGS: ABDOMEN CT: Linear opacities in the lung bases may represent atelectasis or pneumonia. Heart size is normal. Th ere is no significant pericardial fluid. The visualized aorta has a normal caliber. No periaortic f at stranding. Small bilateral pleural effusions are noted. Subcentimeter hypodensity in the right hepatic lobe. The liver, spleen, pancreas, and adrenal glands have appropriate enhancement. Bilaterally, no obstructive uropathy. There is a well-circumscribed hypodense lesion involving the l eft renal cortex with an attenuation coefficient of 22 Hounsfield units. The lesion is incompletely evaluated and measures 2 cm. No significant change. There has been interval resection of the right hemicolon. Anastomotic suture chain is noted at the l evel of the proximal transverse colon. There is no evidence of bowel obstruction. There is indurati on of the mesenteric fat with pockets of fluid and air in the right upper quadrant. This fluid colle ction tracks inferiorly along the anterolateral aspect of the right hemiabdomen. There is incomplete peripheral enhancement. An early developing fluid collection cannot be excluded. There is a suture chain at the level of the rectum. PELVIC CT: There is a small amount of free fluid in the pelvis. NO mass, lymphadenopathy, or free air. Unremar kable urinary bladder. No lytic or blastic lesion in the osseous structures. IMPRESSION: 1. Findings compatible with a recent right hemicolectomy. 2. There is evidence of air and straightening of the mesenteric fat which is presumed to be postoper ative. Some pockets of air are within the mesentery while other pockets of air appear to be associat ed with fluid that is inferior to the posterior segment of the right hepatic lobe. This fluid appear s to be contiguous with fluid that tracks along the right paracolic gutter and into the right lower q uadrant. There is an incompletely formed enhancing peripheral rind. Early developing fluid collecti on cannot be excluded. Results of the study discussed with Dr. Tinoco 04/22/2018 at 1:06 p.m. CODE CR POS: [facility]
[2018-04-22 14:47] LABS: INR-International Normal Ratio 1.2; PTT 29.5 SEC (22.9-36.1); Prothrombin Time 15.7 SEC (12.0-14.7)
[2018-04-22] MEDS ORDERED: Sodium Bicarbonate 2.5 MEQ/5 ML VIAL ONE (14:55)
--- NOTE | 2018-04-22 16:48 | PRG ---
DATE OF SERVICE: 04/22/2018 SUBJECTIVE: Mr. Keenan is postoperative day #16 from laparoscopic right colectomy and laparoscopic sigmoid colectomy per Dr. Wilburn on April 06. He is postoperative day #10 from laparotomy with abdominal washout and ileocolic resection with reanastomosis. Upon evaluation today, Mr. Keenan tells me that he just does not feel right. He has ambulated in the halls and walked three times yesterday. He is tolerating his full-liquid diet. It is noted that he still has some abdominal distention and discomfort. He tells me that he had a couple of bowel movements yesterday. OBJECTIVE: VITAL SIGNS: His temperature is 98.8, pulse is between 98 and 105, and blood pressure is 145/93. LUNGS: Clear to auscultation anteriorly. CARDIAC: Regular rate and rhythm. ABDOMEN: Moderately distended. There are tympanitic bowel sounds. ABDOMEN: Somewhat full and difficult to examine. There does not appear to be focal peritoneal signs. LABORATORY DATA: CBC reveals that his white blood cell count is up to 17, and his hemoglobin is 7.5. Platelet count continues to go up and is 521 today. ASSESSMENT: The patient who shows continued lack of appropriate progress. He does not look good and he does not feel good. His white blood cell count is elevated. I will repeat a CT scan today and act accordingly based on what this shows. He is at a problematic point in regard to a reexploration. If he has an abscess, then this will need to be drained. Job ID: [id number]
--- NOTE | 2018-04-22 17:08 | CT ---
CT GUIDED DRAINAGE OF INTRA ABDOMINAL FLUID COLLECTION: Date: 04/22/18 HISTORY: 58-year-old male with postoperative fluid collection in the right lower quadrant of the abdominal cav ity and pelvic inlet. TECHNIQUE: Signed, informed consent obtained. Patient placed supine in the CT table. Overlying skin of right low er quadrant prepared and draped in the usual sterile fashion. 25 gauge needle used to apply buffered lidocaine superficially and deeply to the abdominal wall. Entire procedure performed under step CT gu idance. 5 [place] Yueh catheter with stylette advanced in tandem with the 25 gauge needle into the poc ket of fluid in the right lower quadrant at the pelvic inlet. Stylette and 25 gauge needle removed. 1 0 mL of opaque, low viscosity, dark ybarra-brown fluid aspirated and sent to laboratory for analysis. A 0.035 short Amplatz guidewire was placed through the Yueh catheter, and looped within the fluid c ollection. The Yueh catheter was exchanged over the guidewire for an 8 [place] dilator, which was then exchanged over the guidewire for an 8 [place] Uresil general purpose drainage catheter. The stiffener and guidewire were removed from the Uresil catheter. Pigtail loop was formed and locked into place, and the catheter was attached to an external drainage bag. A total of 50 mL of fluid was drained. The catheter was sutured in place with Ethilon. The patient tolerated the procedure well. No complicatio ns. Orders written for flush with 5 mL normal saline twice a day. Record output. When daily output is les s than or equal to 5 mL, repeat CT should be ordered prior to removal of drainage catheter. IMPRESSION: 1. Successful drainage of right lower quadrant intra-abdominal fluid collection at the pelvic inlet. 2. 50 mL of low viscosity, opaque dark ybarra-brown fluid was aspirated and sent to laboratory for cul ture & sensitivity. 3. 8 [place]ian general purpose drainage catheter was left to external drainage. POS: [facility]
[2018-04-22 18:39] LABS: BF Color Red; Clarity Cloudy/Turbid (Clear); Tube # EDTA; WBC/NonHematic-Auto 4950 /cumm
[2018-04-22 18:40] LABS: BF RBC Count - Manual 950 /cumm
[2018-04-22 18:47] LABS: BF Segmented Neutrophils 99 %; Cell Count Non Hematic 1 %
[2018-04-22] MEDS: Enoxaparin Sodium 40 MG/0.4 ML SYRINGE SC SCH (21:09)
[2018-04-22] MEDS: SODIUM ACETATE IV SCH (22:31)
[2018-04-22] MEDS: SODIUM CHLORIDE IV SCH (22:31)
[2018-04-22] MEDS: FAT EMULSION IV SCH (22:31)
[2018-04-22] MEDS: [UNRECOGNIZED DRUG - OTHER] IV SCH (22:31)
[2018-04-23] MEDS: fentaNYL Citrate/PF 2,000 MCG in Sodium Chloride 0.9% 60 ML IV PRN (00:36)
[2018-04-23] MEDS: Albuterol Sulfate 2.5 mg/3 ml Neb NEB SCH ×6 (02:07→22:37)
[2018-04-23] MEDS: Ondansetron PF 4 MG/2 ML Vial IVP PRN ×2 (02:50→17:20)
[2018-04-23] MEDS: Meropenem 2 GM in Sodium Chloride 0.9% 100 ML IVPB SCH ×3 (05:46→22:45)
[2018-04-23] MEDS: HumaLOG 300 UNITS/3 ML VIAL SC PRN ×3 (05:46→17:23)
[2018-04-23] MEDS: Furosemide 40 MG/4 ML VIAL SLOW IVP SCH ×2 (05:46→13:26)
[2018-04-23 07:46] LABS: Anion Gap 9 mmol/L (10-20); BUN (Urea Nitrogen) 16 mg/dL (8.4-25.7); Calc. Creatinine Clearance 150 mL/min (70-130); Calcium 8.5 mg/dL (7.8-10.44); Carbon Dioxide 30 mmol/L (22-29); Chloride 102 mmol/L (98-107); Estimated GFR-MDRD Greater than 90; Glucose 134 mg/dL (70-105); Phosphorus 3.2 mg/dL (2.3-4.7); Potassium 4.4 mmol/L (3.5-5.1); Sodium 137 mmol/L (136-145)
[2018-04-23] MEDS: Pantoprazole 40 MG VIAL IVP SCH ×2 (08:46→20:27)
[2018-04-23] MEDS: Polyethylene Glycol 3350 17 GM Packet PO SCH (08:47)
--- NOTE | 2018-04-23 09:40 | PRG ---
DATE OF SERVICE: 04/23/2018 SUBJECTIVE: Mr. Keenan states that he does feel slightly better today than yesterday. He had percutaneous drain placement and upper abdominal fluid collection, that was cloudy and red. He feels bloated, but no nausea or vomiting. Pulse 92, blood pressure 112/77, and O2 saturation is 95% on 1.5 L. Good urine output. The drain is 10 out. He is having bowel movements. PHYSICAL EXAMINATION: CHEST: Clear. HEART: Regular rate and rhythm. ABDOMEN: Distended, but he does have active bowel sounds. Midline wound VAC. LABORATORY DATA: White blood cell count is 17, but normal differential. Creatinine 0.84, potassium 4.4. Body fluid was cloudy, turbid, with 4950 wbc's and 950 rbc's, cultures pending. ASSESSMENT: Status post reoperation for double colon resection, now with fluid collection, status post percutaneous drainage. PLAN: Continue percutaneous drainage. On meropenem. Continue full liquids for now. Continue TPN. Job ID: [id number]
[2018-04-23] MEDS: traMADol HCl 50 MG TAB PO PRN (18:51)
[2018-04-23] MEDS: Enoxaparin Sodium 40 MG/0.4 ML SYRINGE SC SCH (20:27)
[2018-04-23] MEDS: FAT EMULSION IV SCH (22:15)
[2018-04-23] MEDS: SODIUM CHLORIDE IV SCH (22:15)
[2018-04-23] MEDS: SODIUM ACETATE IV SCH (22:15)
[2018-04-23] MEDS: [UNRECOGNIZED DRUG - OTHER] IV SCH (22:15)
[2018-04-24] MEDS: traMADol HCl 50 MG TAB PO PRN ×3 (00:35→13:58)
[2018-04-24] MEDS: HumaLOG 300 UNITS/3 ML VIAL SC PRN ×4 (00:41→23:56)
[2018-04-24] MEDS: Albuterol Sulfate 2.5 mg/3 ml Neb NEB SCH ×6 (02:14→22:26)
[2018-04-24] MEDS: Furosemide 40 MG/4 ML VIAL SLOW IVP SCH ×2 (05:38→14:00)
[2018-04-24] MEDS: Meropenem 2 GM in Sodium Chloride 0.9% 100 ML IVPB SCH ×3 (05:39→22:19)
[2018-04-24 06:54] LABS: Anion Gap 14 mmol/L (10-20); BUN (Urea Nitrogen) 16 mg/dL (8.4-25.7); Calc. Creatinine Clearance 148 mL/min (70-130); Calcium 8.7 mg/dL (7.8-10.44); Carbon Dioxide 28 mmol/L (22-29); Chloride 100 mmol/L (98-107); Estimated GFR-MDRD Greater than 90; Glucose 145 mg/dL (70-105); Phosphorus 3.5 mg/dL (2.3-4.7); Potassium 4.1 mmol/L (3.5-5.1); Sodium 138 mmol/L (136-145)
[2018-04-24] MEDS ORDERED: Fentanyl 100 MCG/2 ML VIAL SLOW IVP PRN (09:02)
--- NOTE | 2018-04-24 09:03 | PRG ---
DATE OF SERVICE: 04/24/2018 SUBJECTIVE: Mr. Keenan states that he feels better today. He is actually hungry. He was out of bed yesterday, but not walking much. No nausea currently. OBJECTIVE: VITAL SIGNS: Blood pressure 117/78, pulse 94, he is afebrile. : Output from his drain is minimal. Urine output is great. ABDOMEN: He had another few bowel movements yesterday. His abdomen is soft. Wound VAC is in place. He has active bowel sounds. ASSESSMENT: Likely resolving ileus, status post 2 operations for colon resection and status post perc drain, fluid collection. PLAN: Recheck labs in morning. Advance to GI soft diet. Job ID: [id number]
[2018-04-24] MEDS: Polyethylene Glycol 3350 17 GM Packet PO SCH (09:19)
[2018-04-24] MEDS: Pantoprazole 40 MG VIAL IVP SCH ×2 (09:19→20:35)
[2018-04-24] MEDS: HYDROcodone/Acetaminophen 7.5/325 mg Tablet PO PRN ×2 (10:17→20:33)
[2018-04-24] MEDS: Enoxaparin Sodium 40 MG/0.4 ML SYRINGE SC SCH (20:35)
[2018-04-24] MEDS: SODIUM ACETATE IV SCH (22:20)
[2018-04-24] MEDS: SODIUM CHLORIDE IV SCH (22:20)
[2018-04-24] MEDS: [UNRECOGNIZED DRUG - OTHER] IV SCH (22:20)
[2018-04-24] MEDS: FAT EMULSION IV SCH (22:20)
[2018-04-25] MEDS: Albuterol Sulfate 2.5 mg/3 ml Neb NEB SCH ×6 (02:18→22:44)
[2018-04-25] MEDS: HYDROcodone/Acetaminophen 7.5/325 mg Tablet PO PRN (03:32)
[2018-04-25] MEDS: Ondansetron PF 4 MG/2 ML Vial IVP PRN ×2 (06:12→14:25)
[2018-04-25] MEDS: Furosemide 40 MG/4 ML VIAL SLOW IVP SCH ×2 (06:12→13:38)
[2018-04-25] MEDS: Meropenem 2 GM in Sodium Chloride 0.9% 100 ML IVPB SCH ×3 (06:12→21:44)
[2018-04-25 07:04] LABS: Anion Gap 11 mmol/L (10-20); BUN (Urea Nitrogen) 17 mg/dL (8.4-25.7); Calc. Creatinine Clearance 150 mL/min (70-130); Carbon Dioxide 30 mmol/L (22-29); Chloride 98 mmol/L (98-107); Estimated GFR-MDRD Greater than 90; Glucose 134 mg/dL (70-105); Potassium 4.7 mmol/L (3.5-5.1); Sodium 134 mmol/L (136-145)
[2018-04-25 07:19] LABS: Hemoglobin 7.8 g/dL (14.0-18.0); Mean Corpuscular HGB CONC 30.8 g/dL (32.0-36.0); Mean Corpuscular Volume 90.9 fL (78.0-98.0); Mean Platelet Volume 9.6 fL (7.4-10.4); Platelet Count 548 thou/uL (130-400); RBC Distribution Width 16.3 % (11.5-14.5); Red Blood Cell (RBC) Count 2.79 mill/uL (4.70-6.10); White Blood Cell (WBC) Count 15.5 thou/uL (4.8-10.8)
[2018-04-25] MEDS: traMADol HCl 50 MG TAB PO PRN ×2 (08:54→17:07)
[2018-04-25] MEDS: Polyethylene Glycol 3350 17 GM Packet PO SCH (08:54)
[2018-04-25] MEDS: Acetaminophen 500 MG TAB PO PRN ×2 (08:54→17:07)
[2018-04-25 09:08] LABS: Anisocytosis SLIGHT = 6-15 cells (100X) (0-5/hpf); Band 11 % (5-11); Hypochromia SLIGHT = 6-15 cells (100X) (0-5/hpf); Lymphocytes 7 % (21-51); MDiff Complete? YES; Metamyelocyte 1 % (0-0); Monocytes 7 % (0-10); Myelocyte 1 % (0-0); Neutrophil 73 % (42-75); PLT Morphology Comment Appears Increased
[2018-04-25] MEDS: Fentanyl 100 MCG/2 ML VIAL SLOW IVP PRN (10:07)
--- NOTE | 2018-04-25 10:09 | RAD ---
ABDOMINAL SURVEY WITH UPRIGHT CHEST AND TWO VIEW ABDOMEN: Indications: Abdominal pain. Post op emesis. Comparison: 04-21-18 FINDINGS: There is patchy infiltrate or atelectasis in the left lung base. Left colon is decompressed with some residual contrast seen in the left colon. There is gaseous dilat ation of what appears to be redundant transverse colon in the midline and overlying the left abdomen. This is similar to the CT of 04-22-18. Percutaneous drainage catheter overlies the right lower quadrant. IMPRESSION: 1. Patchy atelectasis and/or infiltrate in the left lung base. 2. Continued gaseous dilatation of a redundant transverse colon which overlies the mid and left abdom en. The left colon is decompressed. Consider colonoscopy to assess for obstructive process in the reg ion of the splenic flexure. POS: EL
[2018-04-25] MEDS: HumaLOG 300 UNITS/3 ML VIAL SC PRN ×2 (11:42→17:40)
--- NOTE | 2018-04-25 19:13 | PRG ---
DATE OF SERVICE: 04/25/2018 SUBJECTIVE: Axel Keenan is doing well today. OBJECTIVE: VITAL SIGNS: Temperature 98.5 degrees, pulse 94, and blood pressure 110/76. LUNGS: Clear to auscultation. CARDIAC: Regular rate and rhythm without murmur or gallop. ABDOMEN: Good bowel sounds. Mildly tympanitic. The patient reported 2 small-volume emesis this morning when he was trying to have a bowel movement. He had bowel movements yesterday and has been passing flatus today. LABORATORY DATA: This morning, his white count is 15, hemoglobin 17.8. Sodium 134, GFR 90. I did obtain abdominal x-rays today because of the emesis episode. He does have a few air fluid levels what appears to be distended. There does appear to be some gaseous dilatation what appears to be redundant transverse colon in the midline and overlying the left abdomen. Percutaneous drainage catheter in the right lower quadrant is present. Cultures from the fluid collection are negative today and suspected this is old blood. There is only 3 mL drained down the last 24 hours, I expect that we will remove this soon. ASSESSMENT AND PLAN: Continue diet as tolerated. Would discuss with Dr. Sweeney consideration of flexible sigmoidoscopy concerning the distention in the transverse colon, although I am reluctant to do so as he is 3 weeks postoperative colorectal anastomosis (04/06/2018). Job ID: [id number]
--- NOTE | 2018-04-25 21:07 | RAD ---
ABDOMEN TWO VIEWS: 04/25/2018 PROVIDED CLINICAL HISTORY: Abdominal distention. COMPARISON: Study performed earlier on the same date. FINDINGS: Persistent nonspecific gaseous distention of colon. No evidence for pneumoperitoneum. Contrast mate rial is seen throughout the colon. A drainage catheter overlies the right lower quadrant. Surgical viridiana overly the lower abdomen, in the midline. There is no evidence for pneumoperitoneum. Patchy bibasilar parenchymal opacities are seen that may reflect subsegmental atelectasis. IMPRESSION: Nonspecific bowel gas pattern. POS: [facility]
[2018-04-25] MEDS: Metoclopramide 10 MG/10 ML UDCUP PO SCH (21:43)
[2018-04-25] MEDS: Enoxaparin Sodium 40 MG/0.4 ML SYRINGE SC SCH (21:43)
[2018-04-25] MEDS: [UNRECOGNIZED DRUG - OTHER] IV SCH (22:57)
[2018-04-25] MEDS: SODIUM CHLORIDE IV SCH (22:57)
[2018-04-25] MEDS: SODIUM ACETATE IV SCH (22:57)
[2018-04-25] MEDS: FAT EMULSION IV SCH (22:57)
--- NOTE | 2018-04-26 01:16 | HP ---
To Whom It May Concern: Mr. Keenan required hospitalization on 04/06/2018 after operation and has subsequently required reoperation on 04/12/2018, and remains hospitalized to date. I expect him to be discharged in the next few days to a week. The patient is obviously unable to attend to any meetings or legal responsibilities at this time and for an unknown period of time in the future. Sincerely, Job ID: [id number]
[2018-04-26] MEDS: Albuterol Sulfate 2.5 mg/3 ml Neb NEB SCH ×6 (02:08→22:42)
[2018-04-26] MEDS: HumaLOG 300 UNITS/3 ML VIAL SC PRN ×4 (02:10→17:57)
[2018-04-26] MEDS: Furosemide 40 MG/4 ML VIAL SLOW IVP SCH ×2 (06:16→13:09)
[2018-04-26] MEDS: Meropenem 2 GM in Sodium Chloride 0.9% 100 ML IVPB SCH ×2 (06:17→13:13)
[2018-04-26] MEDS: HYDROcodone/Acetaminophen 7.5/325 mg Tablet PO PRN (06:36)
[2018-04-26 07:08] LABS: Anion Gap 11 mmol/L (10-20); BUN (Urea Nitrogen) 18 mg/dL (8.4-25.7); Calc. Creatinine Clearance 148 mL/min (70-130); Carbon Dioxide 31 mmol/L (22-29); Chloride 97 mmol/L (98-107); Estimated GFR-MDRD Greater than 90; Glucose 131 mg/dL (70-105); Phosphorus 3.2 mg/dL (2.3-4.7); Potassium 4.3 mmol/L (3.5-5.1); Sodium 135 mmol/L (136-145)
[2018-04-26] MEDS: Metoclopramide 10 MG/10 ML UDCUP PO SCH ×3 (08:21→16:49)
[2018-04-26] MEDS: Polyethylene Glycol 3350 17 GM Packet PO SCH (08:21)
--- NOTE | 2018-04-26 10:44 | RAD ---
ABDOMEN TWO VIEWS: History: 58-year-old male with history of abdominal distention. Comparison: 04-25-18 FINDINGS: There is some persistently dilated transverse colon and small bowel with oral contrast from the previ ous CT within nondilated left colon, sigmoid colon and rectum. Right lower quadrant percutaneous cath eter is noted. No evidence for free intraperitoneal air. IMPRESSION: Nonspecific persistently dilated small bowel loops, particularly in the left midabdomen with some sca ttered air fluid levels showing little change from 04-25-18 study. Findings may well be related to il eus. Minimal parenchymal changes in the lower lung bases, possible some mild subsegmental atelectasis . Depending upon concern, follow up Gastrografin small bowel study might be of benefit. POS: [facility]
[2018-04-26] MEDS: traMADol HCl 50 MG TAB PO PRN (13:09)
[2018-04-26] MEDS: Acetaminophen 500 MG TAB PO PRN (13:09)
[2018-04-26] MEDS: Ondansetron PF 4 MG/2 ML Vial IVP PRN (16:49)
[2018-04-26] MEDS ORDERED: Mag-Al 1200 mg/1200 mg/30 ML UDCUP PO PRN ×2 (17:25→21:15)
[2018-04-26] MEDS ORDERED: Acetaminophen 1,000 MG in Premix Bag 1 BAG IVPB PRN (17:27)
[2018-04-26] MEDS: Simethicone Chewable 80 MG TAB PO PRN (18:01)
--- NOTE | 2018-04-26 18:49 | PRG ---
DATE OF SERVICE: 04/26/2018 SUBJECTIVE: Mr. Keenan is not eating much. He feels bloated. He feels full. He has had some nausea. OBJECTIVE: VITAL SIGNS: 98.9 degrees, 93, and 147/84. LUNGS: Clear to auscultation. CARDIAC: Regular rate and rhythm without murmur or gallop. ABDOMEN: Soft, distended, and tympanitic. Bowel sounds present. EXTREMITIES: Unremarkable. LABORATORY DATA: No laboratories today. ASSESSMENT AND PLAN: Abdominal bloating and poor gastrointestinal function. I have personally reviewed his 2 CAT scans this hospitalization as well as abdominal x-rays yesterday and today. It appears that he has old contrast consumed for his CAT scan 4 days ago, that has traversed his GI tract and is in his left colon and rectum. He has some mildly distended segments of transverse colon and left colon. He has air-fluid levels and distended loops of small bowel in his left upper quadrant. The patient has excellent bowel sounds clinically and he has a partial obstruction or less likely ileus. It is apparent from past clinical progression with him have bowel movements and radiologic contrast that has traversed to the small bowel in the colon that there was not a complete obstruction. There is contrast in the rectum and left colon, although was decompressed. We would recommend a small bowel followthrough tomorrow. We will place him back on a full liquid diet and give him ingestion. He may need an NG tube eventually. Plan is to try to avoid another operation. Job ID: [id number]
[2018-04-26] MEDS: Calcium Carbonate 500 MG ChewTAB PO PRN (21:22)
[2018-04-26] MEDS: Enoxaparin Sodium 40 MG/0.4 ML SYRINGE SC SCH (21:22)
[2018-04-26] MEDS: Metoclopramide HCl 10 MG/2 ML VIAL IVP SCH (21:23)
[2018-04-26] MEDS ORDERED: Mag-Al 1200 mg/1200 mg/30 ML UDCUP PO SCH (21:30)
[2018-04-26] MEDS: [UNRECOGNIZED DRUG - OTHER] IV SCH (22:27)
[2018-04-26] MEDS: SODIUM ACETATE IV SCH (22:27)
[2018-04-26] MEDS: SODIUM CHLORIDE IV SCH (22:27)
[2018-04-26] MEDS: FAT EMULSION IV SCH (22:27)
[2018-04-27] MEDS: HumaLOG 300 UNITS/3 ML VIAL SC PRN ×3 (00:36→18:02)
[2018-04-27] MEDS: Calcium Carbonate 500 MG ChewTAB PO PRN (02:10)
[2018-04-27] MEDS: Albuterol Sulfate 2.5 mg/3 ml Neb NEB SCH ×6 (02:24→23:23)
[2018-04-27] MEDS ORDERED: Benzocaine 20% Spray 60 ML CAN FS PRN (04:10)
[2018-04-27] MEDS: Ondansetron PF 4 MG/2 ML Vial IVP PRN (04:30)
[2018-04-27] MEDS: Metoclopramide HCl 10 MG/2 ML VIAL IVP SCH ×3 (05:43→21:45)
[2018-04-27 05:55] LABS: ALT (SGPT) 83 U/L (8-55); AST (SGOT) 45 U/L (5-34); Albumin 2.9 g/dL (3.5-5.0); Alkaline Phosphatase 176 U/L (40-150); Anion Gap 11 mmol/L (10-20); BUN (Urea Nitrogen) 20 mg/dL (8.4-25.7); Bilirubin, Total 1.2 mg/dL (0.2-1.2); Calc. Creatinine Clearance 140 mL/min (70-130); Calcium 9.3 mg/dL (7.8-10.44); Carbon Dioxide 33 mmol/L (22-29); Chloride 96 mmol/L (98-107); Estimated GFR-MDRD Greater than 90; Glucose 153 mg/dL (70-105); Magnesium 2.3 mg/dL (1.6-2.6); Phosphorus 3.1 mg/dL (2.3-4.7); Potassium 4.4 mmol/L (3.5-5.1); Protein, Total 8.9 g/dL (6.0-8.3); Sodium 136 mmol/L (136-145)
[2018-04-27 06:07] LABS: #Basophils 0.1 thou/uL (0.0-0.2); #Eosinphils 0.1 thou/uL (0.0-0.7); #Lymphocytes 2.5 thou/uL (1.20-3.40); #Monocytes 1.5 thou/uL (0.11-0.59); #Neutrophils 12.2 thou/uL (1.40-6.50); %Basophils 0.3 % (0.0-1.0); %Eosinophils 0.9 % (0.0-10.0); %Monocytes 8.9 % (0.0-10.0); %Neutrophils 74.9 % (42.0-75.0); Hemoglobin 8.7 g/dL (14.0-18.0); Mean Corpuscular HGB CONC 30.3 g/dL (32.0-36.0); Mean Corpuscular Hemoglobin 27.1 pg (27.0-31.0); Mean Corpuscular Volume 89.7 fL (78.0-98.0); Mean Platelet Volume 9.4 fL (7.4-10.4); Platelet Count 666 thou/uL (130-400); RBC Distribution Width 16.9 % (11.5-14.5); Red Blood Cell (RBC) Count 3.21 mill/uL (4.70-6.10); White Blood Cell (WBC) Count 16.1 thou/uL (4.8-10.8)
--- NOTE | 2018-04-27 08:39 | RAD ---
ABDOMEN 1 VIEW: Date: 04/27/18 HISTORY: 58-year-ood male with history of abdominal distention and NG tube placement. FINDINGS: NG tube is somewhat coiled in the stomach. There are some persistently dilated but less marked dilata tion and distention of small bowel loops when compared to the prior study. Patchy infrahilar parenchy mal changes bilaterally, probably stable. No free intraperitoneal air. IMPRESSION: NG tube placed, which is somewhat coiled in the stomach. Some decompression of the previously noted d ilated small bowel. Stable patchy linear and parenchymal changes in the lower lung zones. Continued f ollow-up for clearing or stability. POS: [facility]
--- NOTE | 2018-04-27 09:17 | RAD ---
UPRIGHT AND SUPINE IMAGING OF THE ABDOMEN AND PELVIS: Date: 04-27-18 Comparison: 04-26-18 History: Small bowel obstruction, abdominal distention. FINDINGS: Upright imaging demonstrates no evidence for free intraperitoneal air. There is a nasogastric tube wi thin the midline upper epigastric region. There is residual contrast media within the distal colon. There is also residual contrast media withi n central small bowel. There is gaseous distention of bowel within the left lower quadrant/left later al abdomen suggesting gas filled and distended small and large bowel. There is a pigtail catheter ove rlying the right hemipelvis consistent with an abscess drain. Cutaneous viridiana are noted centrally. IMPRESSION: Significant residual gaseous distention of bowel within the left abdomen may signify ileus or develop ing small bowel obstruction. Continued follow up to resolution advised. POS: EL
[2018-04-27] MEDS: Fentanyl 100 MCG/2 ML VIAL SLOW IVP PRN ×3 (10:24→19:54)
[2018-04-27] MEDS: Ketorolac Tromethamine 30 MG/ML VIAL IVP PRN (10:55)
--- NOTE | 2018-04-27 12:24 | PRG ---
DATE OF SERVICE: 04/27/2018 SUBJECTIVE: Mr. Keenan had indigestion yesterday evening. He was tympanitic in his upper abdomen. X-rays revealed distended small bowel loops as well as distal transverse colon. He did pass flatus last night and today. He did have 800 mL of emesis last night and had an NG tube placed, and has had another 400 out since then. Abdominal x-rays today revealed improvement in air-fluid levels. He feels better. He again has passed flatus today. OBJECTIVE: LUNGS: Clear to auscultation. CARDIAC: Regular rate and rhythm without murmur or gallop. ABDOMEN: Soft, less tympanitic, less distended upper abdomen. Bowel sounds present. EXTREMITIES: Unremarkable. IMAGING STUDIES: X-rays, air fluid levels, small bowel distention. LABORATORY DATA: White count 16, hemoglobin 8.7. Basic metabolic profile, normal. Magnesium and phosphorus, normal. The patient's percutaneous drain CT guided is putting out 10 to 15 in 24 hours. Cultures remain negative. The drainage is serosanguineous in character. ASSESSMENT AND PLAN: 1. Status post hematoma. Cultures remain negative. We will remove the drain today. 2. Partial bowel obstruction. Leave NG tube in place. Small bowel followthrough tomorrow. Continue surveillance avoid operation. 3. Malnutrition. Continue TPN. 4. Open wound in abdomen, wound VAC change today. Job ID: [id number]
[2018-04-27] MEDS: Enoxaparin Sodium 40 MG/0.4 ML SYRINGE SC SCH (21:45)
[2018-04-27] MEDS: SODIUM ACETATE IV SCH (22:48)
[2018-04-27] MEDS: [UNRECOGNIZED DRUG - OTHER] IV SCH (22:48)
[2018-04-27] MEDS: SODIUM CHLORIDE IV SCH (22:48)
[2018-04-27] MEDS: FAT EMULSION IV SCH (22:48)
[2018-04-28] MEDS: HumaLOG 300 UNITS/3 ML VIAL SC PRN (00:53)
[2018-04-28] MEDS: Fentanyl 100 MCG/2 ML VIAL SLOW IVP PRN ×4 (00:58→16:05)
[2018-04-28] MEDS: Albuterol Sulfate 2.5 mg/3 ml Neb NEB SCH ×6 (01:58→21:53)
[2018-04-28] MEDS: Metoclopramide HCl 10 MG/2 ML VIAL IVP SCH ×3 (05:13→22:45)
[2018-04-28] MEDS ORDERED: Activase 2 MG VIAL CATH SCH ×2 (06:00→09:00)
[2018-04-28] MEDS ORDERED: Sterile Water 10 ML VIAL IVP SCH ×2 (06:00→09:00)
[2018-04-28] MEDS: Ketorolac Tromethamine 30 MG/ML VIAL IVP PRN (08:29)
[2018-04-28 08:34] LABS: Anion Gap 18 mmol/L (10-20); BUN (Urea Nitrogen) 21 mg/dL (8.4-25.7); Calc. Creatinine Clearance 130 mL/min (70-130); Calcium 9.9 mg/dL (7.8-10.44); Carbon Dioxide 25 mmol/L (22-29); Chloride 101 mmol/L (98-107); Estimated GFR-MDRD Greater than 90; Glucose 105 mg/dL (70-105); Sodium 139 mmol/L (136-145)
--- NOTE | 2018-04-28 16:39 | RAD ---
SMALL BOWEL THREE VIEWS: 04/28/18 HISTORY: Small bowel obstruction. FINDINGS: The health director film demonstrates a nasogastric tube in the stomach. Surgical clips and drain are seen in t he lower abdomen. Small bowel series is performed following the injection of water soluble contrast in the stomach via NG tube. Sequential imaging was performed. The small bowel loops are dilated. There is unobstructed passage of contrast through loops of small b owel into the colon by four hours. IMPRESSION: No evidence of high grade small bowel obstruction. POS: EL
--- NOTE | 2018-04-28 17:43 | PRG ---
DATE OF SERVICE: 04/28/2018 SUBJECTIVE: Axel Keenan is doing well today. His small-bowel follow-through revealed transit of Gastrografin within 4 hours. He has had multiple bowel movements. NG tube has been reconnected with about 300 output. The patient did not have any problems, tolerating the Gastrografin study. He did not have any nausea or vomiting. OBJECTIVE: LUNGS: Clear to auscultation. CARDIAC: Regular rate and rhythm without murmur or gallop. ABDOMEN: Soft and nontender. Tympany previously present in the upper abdomen is resolved. IMAGING STUDIES: X-rays reveal persistent, mildly dilated small bowel loops in the upper abdomen, but there is no obstruction. At this point, we will remove his NG tube, trial full liquids and continue TPN. If he does well, maybe we can stop the TPN tomorrow and advance the diet. Hopefully, he can be discharged to home over the weekend. Job ID: [id number]
[2018-04-28] MEDS: Enoxaparin Sodium 40 MG/0.4 ML SYRINGE SC SCH (20:53)
[2018-04-28] MEDS: SODIUM CHLORIDE IV SCH (22:33)
[2018-04-28] MEDS: [UNRECOGNIZED DRUG - OTHER] IV SCH (22:33)
[2018-04-28] MEDS: FAT EMULSION IV SCH (22:33)
[2018-04-28] MEDS: SODIUM ACETATE IV SCH (22:33)
[2018-04-29] MEDS: HumaLOG 300 UNITS/3 ML VIAL SC PRN ×2 (00:28→06:01)
[2018-04-29] MEDS: Albuterol Sulfate 2.5 mg/3 ml Neb NEB SCH ×6 (02:17→22:07)
[2018-04-29] MEDS: Fentanyl 100 MCG/2 ML VIAL SLOW IVP PRN ×3 (05:55→14:12)
[2018-04-29] MEDS: Metoclopramide HCl 10 MG/2 ML VIAL IVP SCH ×3 (05:58→22:04)
[2018-04-29 07:08] LABS: Anion Gap 13 mmol/L (10-20); BUN (Urea Nitrogen) 27 mg/dL (8.4-25.7); Calc. Creatinine Clearance 133 mL/min (70-130); Calcium 9.6 mg/dL (7.8-10.44); Carbon Dioxide 30 mmol/L (22-29); Chloride 100 mmol/L (98-107); Estimated GFR-MDRD Greater than 90; Glucose 182 mg/dL (70-105); Potassium 3.6 mmol/L (3.5-5.1); Sodium 139 mmol/L (136-145)
[2018-04-29] MEDS ORDERED: traMADol HCl 50 MG TAB PO PRN (14:22)
[2018-04-29 14:31] VITALS: BMI 29.5
[2018-04-29] MEDS: traMADol HCl 50 MG TAB PO PRN (17:39)
[2018-04-29] MEDS: Acetaminophen 500 MG TAB PO PRN (17:39)
[2018-04-29] MEDS: Ibuprofen 600 MG TAB PO PRN (17:39)
[2018-04-29] MEDS: Enoxaparin Sodium 40 MG/0.4 ML SYRINGE SC SCH (22:04)
[2018-04-30] MEDS: HumaLOG 300 UNITS/3 ML VIAL SC PRN (00:11)
[2018-04-30] MEDS: Acetaminophen 500 MG TAB PO PRN ×3 (00:55→21:01)
[2018-04-30] MEDS: Albuterol Sulfate 2.5 mg/3 ml Neb NEB SCH ×6 (02:06→23:05)
[2018-04-30 07:41] LABS: Anion Gap 13 mmol/L (10-20); BUN (Urea Nitrogen) 19 mg/dL (8.4-25.7); Calc. Creatinine Clearance 137 mL/min (70-130); Calcium 9.3 mg/dL (7.8-10.44); Carbon Dioxide 29 mmol/L (22-29); Chloride 99 mmol/L (98-107); Estimated GFR-MDRD Greater than 90; Glucose 113 mg/dL (70-105); Phosphorus 4.9 mg/dL (2.3-4.7); Potassium 4.2 mmol/L (3.5-5.1); Sodium 137 mmol/L (136-145)
[2018-04-30] MEDS: Polyethylene Glycol 3350 17 GM Packet PO SCH (07:51)
[2018-04-30] MEDS: Metoclopramide HCl 10 MG/2 ML VIAL IVP SCH ×3 (08:05→21:01)
[2018-04-30] MEDS: traMADol HCl 50 MG TAB PO PRN (11:00)
[2018-04-30] MEDS: Ibuprofen 600 MG TAB PO PRN (11:01)
[2018-04-30] MEDS: Simethicone Chewable 80 MG TAB PO PRN (12:46)
--- NOTE | 2018-04-30 14:40 | PRG ---
DATE OF SERVICE: 04/30/2018 SUBJECTIVE: Shlomo is a 58-year-old, doing well. He is tolerating his diet. He has not had any nausea or vomiting. He feels like he will now need to have a bowel movement. He has been passing flatus. OBJECTIVE: VITAL SIGNS: Temperature 99 degrees, blood pressure 121/74. LUNGS: Clear to auscultation. CARDIAC: Regular rate and rhythm without murmur or gallop. ABDOMEN: Soft, slightly more tympanitic than yesterday, some fullness in his upper abdomen. Bowel sounds are perhaps hyperactive and tinkling on occasion. LABORATORIES: None. ASSESSMENT AND PLAN: Continue dietary efforts. His TPN has been discontinued. Hopefully, he can tolerate his diet and have bowel function, and he can go home tomorrow. I have talked about a soft diet, low fiber. We will ask dietary to see him in that regard, to educate him. Adjust his diet accordingly in the hospital. Obtain two view abdomen in the morning. Job ID: [id number]
[2018-04-30] MEDS: Enoxaparin Sodium 40 MG/0.4 ML SYRINGE SC SCH (21:00)
[2018-05-01] MEDS: Albuterol Sulfate 2.5 mg/3 ml Neb NEB SCH ×4 (02:17→15:14)
[2018-05-01] MEDS: Metoclopramide HCl 10 MG/2 ML VIAL IVP SCH (06:28)
[2018-05-01] MEDS: Ibuprofen 600 MG TAB PO PRN ×2 (06:34→11:01)
[2018-05-01] MEDS: Acetaminophen 500 MG TAB PO PRN ×2 (06:34→11:00)
[2018-05-01] MEDS: Polyethylene Glycol 3350 17 GM Packet PO SCH (08:47)
[2018-05-01] MEDS: Simethicone Chewable 80 MG TAB PO PRN (11:03)
--- NOTE | 2018-05-01 11:49 | RAD ---
ABDOMEN 2 VIEWS: Date: 05/01/18 HISTORY: Partial small bowel obstruction FINDINGS: No free air is seen. There is air in loops of small and large bowel. Contrast is seen in the distal colon and rectum. Postop changes are seen in the lower abdomen. There are degenerative changes in the spine. IMPRESSION: No evidence of high grade bowel obstruction. POS: [facility]
[2018-05-01 16:03] VITALS: BP 129/77; TEMP 99.1
--- NOTE | 2018-05-01 22:11 | DIS ---
DATE OF ADMISSION: 04/06/2018 DATE OF DISCHARGE: 04/30/2018 DISCHARGE DIAGNOSES: 1. 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 2. Resected right colectomy specimen, margins proximal distal, negative for lesions, 14 pericolonic nodes, negative for lesions. Polypectomy resection was felt to be incomplete in the past, but was tattooed and this was indicated in the resected specimen. Left colon resection of previously resected polyp. No residual tumor. No incidental hyperplastic polyp noted. All nodes negative. PROCEDURE DURING THIS HOSPITALIZATION: 1. On 04/06/2018, laparoscopic right colectomy, laparoscopic sigmoid resection, primary anastomosis. On 04/12/2018, laparotomy with ileocolic resection and reanastomosis. 2. Blood transfusion, three units of blood in this hospitalization. 3. Anemia. Discharge hemoglobin of 8.7. Renal function normal. HISTORY: This is a 58-year-old male presenting after colonoscopy with the above pathologic findings, had these lesions tattooed, rectosigmoid and hepatic flexure, undergoing the above procedure. Postoperatively, he had a prolonged ileus. CAT scan obtained revealed patent small bowel ileocolic anastomosis, but the patient continued to have pain and ileus. An NG tube was required with high output. It was felt not to have an obstructive pattern. He was taken back to the operating room with the ileocolic anastomosis, it was resected and redone. The segment of the ileum and colon removed revealed a serositis inflammatory exudate suspicious of ischemia. No other abnormalities were noted. Postop, the patient again had a prolonged ileus requiring placement of replacement of his NG tube with significant output. It was removed. A small bowel follow-through obtained and did traverse into the colon. The patient after prolonged hospitalization and TPN, resume GI function. He is discharged home to resume his home medications after removal of his TPN. He will resume his omeprazole daily, hydrochlorothiazide daily, lisinopril daily, tramadol as needed for pain, MiraLAX twice a day, ibuprofen q.6 hours p.r.n., Tylenol p.r.n. pain. He is to follow up in [facility] for wound VAC change next week and will probably be discontinued and the silver dressing applied. He will be on a low residue, low-fiber diet at this time. If he had some persistent left upper quadrant dilated small bowel loops with the small bowel follow-through without obstruction. As he ate, he would occasionally get distended tympanitic in his upper abdomen, but this would resolve with time. He is on a low residue, low-fiber diet. Soft diet for the next few weeks. He is taking MiraLAX twice a day. Job ID: [id number]
== END 2018-05-01 17:54 | disposition home or self-care (01) | DRG 329 ==
LOC: SURG A 04-06 07:08 → EDSTATUS 04-06 08:00 → SURG A 04-06 18:33 → CCU 04-12 22:37 → SURG B 04-13 17:40
PROVIDERS: ADMIT Specialist; ATTEND Specialist
PROC: 0DBF4ZZ Excision of Right Large Intestine, Percutaneous Endoscopic Approach (ICD-10-PCS; 2018-04-06)
PROC: 0D1 Gastrointestinal System, Bypass (ICD-10-PCS; principal; 2018-04-12)
PROC: 0WJP0ZZ Inspection of Gastrointestinal Tract, Open Approach (ICD-10-PCS; 2018-04-12)
PROC: 05H633Z Insertion of Infusion Device into Left Subclavian Vein, Percutaneous Approach (ICD-10-PCS; 2018-04-12)
PROC: 3E1M38Z Irrigation of Peritoneal Cavity using Irrigating Substance, Percutaneous Approach (ICD-10-PCS; 2018-04-12)
PROC: 0D9670Z Drainage of Stomach with Drainage Device, Via Natural or Artificial Opening (ICD-10-PCS; 2018-04-12)
PROC: 5A1935Z Respiratory Ventilation, Less than 24 Consecutive Hours (ICD-10-PCS; 2018-04-12)
PROC: 0BH17EZ Insertion of Endotracheal Airway into Trachea, Via Natural or Artificial Opening (ICD-10-PCS; 2018-04-12)
DX: C19 Malignant neoplasm of rectosigmoid junction (principal); J96.01 Acute respiratory failure with hypoxia; K56.7 Ileus, unspecified; K56.600 Partial intestinal obstruction, unspecified as to cause; J98.11 Atelectasis; E46 Unspecified protein-calorie malnutrition; K72.90 Hepatic failure, unspecified without coma; I10 Essential (primary) hypertension; K21.9 Gastro-esophageal reflux disease without esophagitis; Z79.899 Other long term (current) drug therapy; R00.0 Tachycardia, unspecified; D64.9 Anemia, unspecified; Z68.30 Body mass index [BMI] 30.0-30.9, adult
CPT/HCPCS: 36415; 36416; 36430; 49020; 71045; 71046; 74018; 74019; 74022; 74176; 74177; 74250; 77002; 80048; 80053; 82805; 83735; 84100; 85025; 85060; 85610; 85730; 86850; 86900; 86901; 87070; 87205; 88307; 89051; 90471; 90686; 93005; 93010; 94002; 94003; 94640; 96374; A4216; A4217; C1729; C9113; G0008; J0131; J0670; J1100; J1650; J1815; J1885; J1940; J2001; J2185; J2250; J2270; J2405; J2704; J2765; J2997; J3010; J3475; J3480; J7050; J7120; J7611; P9016; P9045; Q0162; Q9967; S0028

== ENCOUNTER 2018-04-04 08:32 | Outpatient (CLI) | payer OTHER ==
[2018-04-04 09:35] LABS: #Basophils 0.1 thou/uL (0.0-0.2); #Eosinphils 0.2 thou/uL (0.0-0.7); #Lymphocytes 2.9 thou/uL (1.20-3.40); #Monocytes 0.6 thou/uL (0.11-0.59); #Neutrophils 3.3 thou/uL (1.40-6.50); %Basophils 1.1 % (0.0-1.0); %Eosinophils 2.7 % (0.0-10.0); %Lymphocytes 41.3 % (21.0-51.0); %Monocytes 8.2 % (0.0-10.0); %Neutrophils 46.7 % (42.0-75.0); Hemoglobin 15.4 g/dL (14.0-18.0); Mean Corpuscular HGB CONC 33.8 g/dL (32.0-36.0); Mean Corpuscular Hemoglobin 30.8 pg (27.0-31.0); Mean Corpuscular Volume 90.9 fL (78.0-98.0); Mean Platelet Volume 8.6 fL (7.4-10.4); Platelet Count 182 thou/uL (130-400); RBC Distribution Width 12.2 % (11.5-14.5)
[2018-04-04 09:43] LABS: Hemoglobin A1c 5.1 % (4.0-6.0)
[2018-04-04 09:59] LABS: ALT (SGPT) 32 U/L (8-55); AST (SGOT) 23 U/L (5-34); Albumin 4.4 g/dL (3.5-5.0); Alkaline Phosphatase 56 U/L (40-150); Anion Gap 11 mmol/L (10-20); BUN (Urea Nitrogen) 15 mg/dL (8.4-25.7); Bilirubin, Total 0.4 mg/dL (0.2-1.2); Calc. Creatinine Clearance 0 mL/min (70-130); Calcium 9.9 mg/dL (7.8-10.44); Carbon Dioxide 27 mmol/L (22-29); Chloride 105 mmol/L (98-107); Estimated GFR-MDRD 78; Globulin 3.7 g/dL (2.4-3.5); Glucose 123 mg/dL (70-105); Potassium 4.3 mmol/L (3.5-5.1); Protein, Total 8.1 g/dL (6.0-8.3); Sodium 139 mmol/L (136-145)
--- NOTE | 2018-04-04 19:22 | EKG ---
Test Reason : Blood Pressure : / mmHG Vent. Rate : 070 BPM Atrial Rate : 070 BPM P-R Int : 166 ms QRS Dur : 094 ms QT Int : 362 ms P-R-T Axes : 056 050 044 degrees QTc Int : 390 ms Normal sinus rhythm Normal ECG When compared with ECG of 02-FEB-2018 12:57, No significant change was found Confirmed by PHIL MUÑOZ, SRoshni (4) on 04/04/2018 7:22:03 PM Referred By: NERY Confirmed By:DR. Yunior VILLARREAL MD
== END 2018-04-04 08:33 | disposition home or self-care (01) ==
LOC: LABBT 08:32
PROVIDERS: ATTEND Specialist
DX: Z01.818 Encounter for other preprocedural examination (principal); C18.3 Malignant neoplasm of hepatic flexure; K63.5 Polyp of colon
CPT/HCPCS: 80053; 82378; 83036; 85025; 93005; 93010

== ENCOUNTER 2018-05-04 13:54 | Inpatient (IN) | payer OTHER, SELFPAY ==
[2018-05-04 14:27] LABS: Lactate 1.78 mmol/L (0.50-2.20)
[2018-05-04] MEDS ORDERED: Ondansetron PF 4 MG/2 ML Vial ONE (14:30)
[2018-05-04 14:31] LABS: Hemoglobin 8.7 g/dL (14.0-18.0); Mean Corpuscular HGB CONC 32.1 g/dL (32.0-36.0); Mean Corpuscular Hemoglobin 27.4 pg (27.0-31.0); Mean Corpuscular Volume 85.4 fL (78.0-98.0); Mean Platelet Volume 8.7 fL (7.4-10.4); Platelet Count 376 thou/uL (130-400); RBC Distribution Width 16.8 % (11.5-14.5); Red Blood Cell (RBC) Count 3.18 mill/uL (4.70-6.10); White Blood Cell (WBC) Count 12.5 thou/uL (4.8-10.8)
[2018-05-04 14:50] LABS: Anisocytosis SLIGHT = 6-15 cells (100X) (0-5/hpf); Band 3 % (5-11); Hypochromia SLIGHT = 6-15 cells (100X) (0-5/hpf); Lymphocytes 13 % (21-51); MDiff Complete? YES; Monocytes 3 % (0-10); Neutrophil 81 % (42-75); PLT Morphology Comment Appears Adequate
[2018-05-04 14:52] LABS: ALT (SGPT) 76 U/L (8-55); AST (SGOT) 57 U/L (5-34); Albumin 2.7 g/dL (3.5-5.0); Alkaline Phosphatase 156 U/L (40-150); Anion Gap 14 mmol/L (10-20); BUN (Urea Nitrogen) 13 mg/dL (8.4-25.7); Bilirubin, Total 2.1 mg/dL (0.2-1.2); Calc. Creatinine Clearance 0 mL/min (70-130); Calcium 9.1 mg/dL (7.8-10.44); Carbon Dioxide 22 mmol/L (22-29); Chloride 100 mmol/L (98-107); Estimated GFR-MDRD Greater than 90; Globulin 5.8 g/dL (2.4-3.5); Glucose 113 mg/dL (70-105); Lipase 243 U/L (8-78); Potassium 3.7 mmol/L (3.5-5.1); Protein, Total 8.5 g/dL (6.0-8.3); Sodium 132 mmol/L (136-145)
[2018-05-04] MEDS ORDERED: Heparin 1,000 UNITS/ML VIAL ONE (15:00)
--- NOTE | 2018-05-04 15:10 | RAD ---
PA AND LATERAL VIEWS CHEST: Date: 05/04/18 HISTORY: Nausea, vomiting, and shortness of breath. FINDINGS: Comparison made with exam of 04/25/18. The left-sided central venous catheter has been removed in the interim. Scarring is again noted. The heart size is normal. No focal areas of consolidation, pneumothoraces, or pleural effusions are seen. IMPRESSION: No acute process. POS: OFF
[2018-05-04 15:24] LABS: CKMB 0.7 ng/mL (0-6.6)
[2018-05-04] MEDS ORDERED: Acetaminophen 500 MG TAB ONE (15:44)
[2018-05-04] MEDS ORDERED: Iopamidol 370 76% 50 ML VIAL FS ONE (16:42)
[2018-05-04] MEDS ORDERED: ISOVUE-370 76%-LOCM 1 ML ONE (16:42)
--- NOTE | 2018-05-04 17:41 | CT ---
CT ABDOMEN AND PELVIS WITH CONTRAST: 05/04/18 HISTORY: Nausea and vomiting. COMPARISON: CT abdomen and pelvis 04/22/18. FINDINGS: Mild atelectatic changes in the lung bases. No pericardial effusion. Recent postoperative changes are seen in the omentum with fluid. There appears to be an open wound in the anterior abdominal wall. There is a collection of fluid in the right lower quadrant of the abdom en which does contain gas with peripheral enhancement measuring 3.7 x 3.8 x 7.8 cm. This collection of fluid slightly decreased in size from the comparison examination although this fluid has some more thicker peripheral enhancement. There is also no significant improvement of the extraperitoneal gas along the right subdiaphragmatic space with the appearance of fat necrosis. The fluid in this subhepa tic space is not as well defined as the right pericolic lower quadrant fluid collection. There is no leakage of ingested oral contrast appreciated. There is anastomotic suture in the rectosigmoid junction. Both renal cyst is present. No retroperiton eal adenopathy. No acute osseous abnormality. IMPRESSION: 1. Slight interval site decrease to the right lower quadrant peripherally enhancing collection f rom the 04/22/18 examination without an indwelling drainage catheter. This is concerning for abscess formation. 2. No significant interval improvement of the gas containing collection in subhepatic space on t he right without well defined peripheral wall to the collection of fluid. This is concerning for supe rinfected fat necrosis. POS: [facility]
[2018-05-04 17:42] LABS: Bilirubin Small (Negative); Blood, Urine Negative (Negative); Clarity CLEAR (Clear); Glucose, Urine (Dipstick) Negative (Negative); Leukocyte Trace (Negative); Nitrite Negative (Negative); Protein, Urine (Dipstick) Trace mg/dL (Neg-Trace); Specific Gravity, Urine 1.025 (1.002-1.036)
[2018-05-04 17:47] LABS: Bacteria/HPF None Seen HPF (None Seen); Hyaline Casts/LPF 4-6 HYALINE CAST LPF (0-3 Hyaline); Pathc Cast-AUWi Flag 0.72 (0-2.49); Squamous Epithelial 0-3 HPF (0-3); WBC/HPF 0-3 HPF (0-3)
--- NOTE | 2018-05-04 17:47 | ULT ---
RIGHT UPPER QUADRANT ULTRASOUND: 05/04/18 HISTORY: Right upper quadrant pain and nausea. FINDINGS: The liver demonstrates homogeneous echotexture without focal mass or intrahepatic ductal dilatation. The gallbladder is full of echogenic sludge without shadowing calculi. The gallbladder wall is thick ened measuring 5 mm in thickness. No pericholecystic fluid is seen. The common duct measures 3 mm in diameter. The right kidney is normal. The pancreas is not visualized due to overlying bowel gas. IMPRESSION: Gallbladder sludge with wall thickening. If there is concern for acute cholecystitis, further evaluat ion with HIDA scan should be performed. POS: [facility]
[2018-05-04 17:58] LABS: RBC/HPF None Seen HPF (0-3)
[2018-05-04] MEDS ORDERED: Ondansetron ODT 4 MG TAB PO PRN (18:00)
[2018-05-04] MEDS ORDERED: Mag-Al 1200 mg/1200 mg/30 ML UDCUP PO PRN (18:03)
[2018-05-04] MEDS ORDERED: traMADol HCl 50 MG TAB PO PRN (18:05)
[2018-05-04 19:29] LABS: Troponin I 0.038 ng/mL (< 0.028)
[2018-05-04] MEDS ORDERED: Enoxaparin Sodium 40 MG/0.4 ML SYRINGE SC SCH (21:00)
[2018-05-04] MEDS: Sucralfate 1 GM TAB PO SCH (23:00)
[2018-05-04] MEDS: Metoclopramide HCl 10 MG/2 ML VIAL IVP SCH (23:04)
[2018-05-04] MEDS: Sodium Chloride 0.9% 1,000 ML IV SCH (23:16)
[2018-05-04] MEDS: Piperacillin/Tazobactam 3.375 GM in Sodium Chloride 0.9% 100 ML IVPB SCH (23:16)
--- NOTE | 2018-05-05 00:02 | HP ---
HISTORY OF PRESENT ILLNESS: Axel Keenan is a 58-year-old male patient who is well known to me. He is status post recent prolonged hospitalization 04/06/2018 to 04/30/2018, where he had two colon problems, one is hepatic flexure and the other is rectosigmoid, undergoing a laparoscopic right colectomy and sigmoid resection with appropriate anastomosis on 04/06/2018. The patient postoperatively had a prolonged ileus and had problems where he developed a severe serositis and had a laparotomy 04/12/2018, removing his ileocolic anastomosis, redoing it. Postoperatively, he had a prolonged ileus, TPN, had persistent air-fluid levels, dilated loops of bowel in his left upper quadrant. The patient underwent several small-bowel follow-throughs, the last one 04/28/2018 where contrast passed into the colon with some persistent dilated loops, but no evidence of obstruction. This took about 4 hours to reach the colon. The patient slowly convalesced, tolerated his diet, and was discharged home on 05/01/2018. The patient was doing well, having formed bowel movements until this morning when he developed nausea, vomiting, and severe indigestion. He presented to the emergency room and seem to be dehydrated. His white count was 12 (discharged from the hospital with a white count of 16, a few days prior to discharge), hemoglobin 8.7 which is about the same as he was discharged home with. His renal function was normal. Sodium 132, potassium 3.7, bilirubin was up to 2.1, AST 57, ALT 76. The patient was on prolonged TPN and his bilirubin prior at the time of discharge was 1.2, had been up to 5.2. For this reason, the patient underwent an ultrasound on this emergency room visit and was noted to have gallbladder sludge with thickening, normal bile duct caliber of 3 mm. He underwent a CAT scan of the abdomen and pelvis demonstrating some inflammatory changes right subhepatic and right lower quadrant with few punctate areas of gas. He had had his previous hospitalization CT-guided drainage of a fluid collection in his right lower quadrant and we were irrigating that for few days and this did not grow anything out and looked like just old blood, perhaps known hematoma. The catheter was removed. The patient was sent home without antibiotics. Due to the patient's finding of a fever on admission of 102 degrees and his indigestion and nausea and vomiting, he is to be admitted today for followup for blood cultures. The patient denies cough. He denies urinary complaints. 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 SOCIAL HISTORY: Tobacco, none. Alcohol, none. The patient is unemployed. He is working on disability. He is from his . He lives with his girlfriend. Hepatitis C, treated by Dr. Tong in 2000, hypertension, and GERD. REVIEW OF SYSTEMS: Ten-point noncontributory. BASELINE MEDICATIONS: He takes at home are, 1. Lisinopril 40 mg a day. 2. Hydrochlorothiazide daily. Alcohol, none. PHYSICAL EXAMINATION: HEENT: The patient is in no distress. VITAL SIGNS: Temperature 101.4 degrees on admission, blood pressure 115/72, heart rate 106. HEAD, EARS, EYES, NOSE AND THROAT: Unremarkable. LUNGS: Clear to auscultation. CARDIAC: Regular rate and rhythm without murmur or gallop. ABDOMEN: Soft. Wounds on upper abdomen granulating. EXTREMITIES: Unremarkable. Mild tenderness in his right upper quadrant. LABORATORIES: As noted above. ASSESSMENT AND PLAN: Fever postoperatively. His chest x-ray is normal. There are no urinary complaints. We will obtain urine and blood cultures and start antibiotics and await blood culture results. The patient is having nausea and vomiting. We will check stool studies as he has been on prolonged antibiotics. We will start intravenous antibiotics, and awaiting cultures since he had a fever, I think the punctate air collections, inflammatory changes are postoperatively, I am not sure that they need to be addressed. I have talked to Radiology and there is probably no drainable fluid collection at this time. My main concern is indigestion which he has had problems with his last hospitalization which could reflect partial bowel obstruction. He seems to be dehydrated and we will hydrate him. Job ID: [id number]
[2018-05-05 05:54] LABS: #Eosinphils 0.1 thou/uL (0.0-0.7); #Lymphocytes 2.3 thou/uL (1.20-3.40); %Basophils 0.2 % (0.0-1.0); %Lymphocytes 24.2 % (21.0-51.0); %Monocytes 10.7 % (0.0-10.0); %Neutrophils 63.9 % (42.0-75.0); Hemoglobin 7.7 g/dL (14.0-18.0); Mean Corpuscular HGB CONC 31.9 g/dL (32.0-36.0); Mean Corpuscular Hemoglobin 27.3 pg (27.0-31.0); Mean Corpuscular Volume 85.3 fL (78.0-98.0); Mean Platelet Volume 8.3 fL (7.4-10.4); Platelet Count 303 thou/uL (130-400); RBC Distribution Width 16.4 % (11.5-14.5); Red Blood Cell (RBC) Count 2.82 mill/uL (4.70-6.10); White Blood Cell (WBC) Count 9.4 thou/uL (4.8-10.8)
[2018-05-05] MEDS: Metoclopramide HCl 10 MG/2 ML VIAL IVP SCH ×2 (05:54→14:19)
[2018-05-05] MEDS: Piperacillin/Tazobactam 3.375 GM in Sodium Chloride 0.9% 100 ML IVPB SCH ×3 (05:57→17:05)
[2018-05-05 06:18] LABS: ALT (SGPT) 64 U/L (8-55); AST (SGOT) 36 U/L (5-34); Albumin 2.3 g/dL (3.5-5.0); Alkaline Phosphatase 132 U/L (40-150); Anion Gap 13 mmol/L (10-20); BUN (Urea Nitrogen) 9 mg/dL (8.4-25.7); Bilirubin, Total 2.1 mg/dL (0.2-1.2); Calc. Creatinine Clearance 143 mL/min (70-130); Calcium 8.7 mg/dL (7.8-10.44); Carbon Dioxide 23 mmol/L (22-29); Chloride 105 mmol/L (98-107); Estimated GFR-MDRD Greater than 90; Globulin 4.9 g/dL (2.4-3.5); Glucose 126 mg/dL (70-105); Potassium 3.7 mmol/L (3.5-5.1); Protein, Total 7.2 g/dL (6.0-8.3); Sodium 137 mmol/L (136-145)
[2018-05-05] MEDS: Sucralfate 1 GM TAB PO SCH ×5 (09:53→22:05)
[2018-05-05] MEDS: Pantoprazole 40 MG VIAL IVP SCH (09:58)
[2018-05-05] MEDS: Sodium Chloride 0.9% 1,000 ML IV SCH ×2 (09:59→15:47)
[2018-05-05] MEDS: traMADol HCl 50 MG TAB PO PRN (09:59)
--- NOTE | 2018-05-05 15:41 | CON ---
DATE OF CONSULTATION: 05/05/2018 REASON FOR CONSULTATION: Abnormal EKG. HISTORY OF PRESENT ILLNESS: Mr. Keenan is a 58-year-old gentleman, who comes to the hospital for epigastric pain. He had been in the hospital for almost a month since April 06, actually discharged home on April 30. The original issue he came in as he had a right colectomy and sigmoid resection with appropriate anastomosis. He was found to have rectal cancer. He had a complicated postoperative course with ileus and severe serositis and had laparotomy on 04/12, removing an ileocolic anastomosis and re-doing it, continued to have prolonged ileus after that. He slowly improved to the point where he was discharged home on the of this month. He went home and had to come back in yesterday as he started having a lot of nausea and vomiting as well as what he describes as acid reflux. He feels like it is heartburn. He was seen in the ER. He had a temperature of 102 with nausea and vomiting, and his indigestion. An EKG was done that showed possible ST elevations with large Q-waves in the anterior leads, so Cardiology has been consulted for all this. He denies any chest pain, tightness, pressure, or shortness of breath. It is just heartburn with nausea and vomiting which was new. PAST MEDICAL HISTORY: 1. Hepatitis C. 2. Hypertension. 3. Rectosigmoid adenocarcinoma. 4. Tubulovillous adenoma with cancer of the margins. 5. GERD. PAST SURGICAL HISTORY: 1. Laparoscopic right colectomy, redo anastomosis. 2. Laparoscopic sigmoid resection. SOCIAL HISTORY: No alcohol, tobacco, or drugs. OUTPATIENT MEDICATIONS: Include, 1. Lisinopril 40 mg a day. 2. Hydrochlorothiazide daily. 3. Ibuprofen p.r.n. 4. Acetaminophen p.r.n. 5. Tramadol 50 mg p.r.n. 6. MiraLAX daily. 7. Omeprazole 20 mg a day. ALLERGIES: NO KNOWN DRUG ALLERGIES. REVIEW OF SYSTEMS: A 12-point review of systems was done and was found to be negative unless stated in the history of present illness. PHYSICAL EXAMINATION: VITAL SIGNS: Temperature 97.7, however, in the ER, he was as high as 102.5. He came in at 101.4. He has been afebrile since admission. Pulse 96, respiratory rate 16, saturating 94% on room air, blood pressure 106/60. GENERAL: Awake, alert, and oriented x3. No distress. HEENT: Normocephalic and atraumatic. NECK: Supple. LUNGS: Clear. CARDIOVASCULAR: S1 and S2. No S3 or S4. No murmurs. ABDOMEN: Soft. Very distant bowel sounds, but he has bowel sounds. No tingling. EXTREMITIES: No edema. SKIN: Warm and dry. LABORATORY DATA: Laboratory work was reviewed. White count of 12.5, down to 9.4; hemoglobin is 8.7, down to 7.7; hematocrit of 24; platelet count of 203. Chemistries: Sodium was 132 on arrival, up to 137 now; potassium is 3.7. BUN and creatinine were normal. Total bilirubin was 2.1, AST 57, ALT 76, alkaline phosphatase 156. Troponin was 0.03, 0.03, 0.03. Albumin of 2.3, lipase of 243. UA with small bilirubin, 4.0 urobilinogen, leukocyte esterase, and hyaline cast. Blood cultures have been negative so far. Influenza has been negative for A and B. EKG was reviewed. He is in sinus rhythm. Heart rate is 99. He has deep Q-waves in V1 through V4 with about a millimeter and half of ST elevation suggestive of an old infarct versus an evolving anterior IL. Other possibilities are an anterior left ventricular aneurysm. CT of the abdomen and pelvis was reviewed, an interval decrease in the right lower quadrant peripherally enhancing collection. Abscess formation is a concern. No change in the gas containing collection in the subhepatic space with peripheral wall fluid collection concerning for fat necrosis. ASSESSMENT: 1. Abnormal EKG. 2. Elevated troponins, indeterminate range and suggestive of demand ischemia. 3. Recent abdominal instrumentation with intraabdominal abscess in the recent past. PLAN: 1. EKG changes may also be related to just irritation around the heart or this is less likely. We will get an echocardiogram to evaluate for LV function and valvular structures as well as wall motion. 2. His troponin is not elevated enough to think that this is an acute IL. This is most likely just a troponin leak from his acute illness. 3. Echocardiogram will tell me if his LV function is reduced as he may have some level of ischemic cardiomyopathy versus just a cardiomyopathy of acute illness. Thank you for allowing me to participate in the care of your patient. We will follow. Job ID: [id number]
[2018-05-05] MEDS: Acetaminophen 500 MG TAB PO PRN (15:55)
--- NOTE | 2018-05-05 20:56 | PRG ---
DATE OF SERVICE: 05/05/2018 SUBJECTIVE: Mr. Keenan states he is not having any pain today. He does not have any nausea or vomiting. He is having bowel movements, passing flatus. OBJECTIVE: LUNGS: Clear to auscultation. CARDIAC: Regular rate and rhythm without murmur or gallop. ABDOMEN: Soft. Bowel sounds present. Nontender. Nondistended. Non-tympanitic. LABORATORY DATA: Blood cultures today negative 24 hours and negative. Urine culture, multiple bacteria. Await final results. Chest x-ray unremarkable. This morning, his white count is 9, hemoglobin 7.7. Basic metabolic profile is normal. Bilirubin is 2.1. AST and ALT are [address] Galloway has seen him. An echocardiogram reveals an akinetic apex and it is felt he may have had a myocardial infarction in last 2 months and the patient will probably need a cardiac cath in the future. Dr. Galloway is starting therapeutic Lovenox. The patient is on Zosyn. He has been afebrile this admission until this evening when he had a fever to 101.4 degrees at 3 o'clock up to 102 at 6 o'clock. ASSESSMENT AND PLAN: Fever, uncertain etiology. He does have some inflammatory changes in his right subhepatic area and in his right lower quadrant. Percutaneous drainage was performed in the right lower quadrant with collection and this was just old bloody fluid and cultures were negative. We will add Diflucan to his intravenous antibiotic regimen and await cultures. The patient will need to be afebrile until anticipating cardiac catheterization probably next week. The patient's CAT scan on admission did not reveal a fluid collection subhepatic to drain. We may have to re-scan him this weekend if he continues fevers. We will add Diflucan, await culture results. We will consult Infectious Disease. Await urine culture results. Job ID: [id number]
[2018-05-05] MEDS ORDERED: Metoclopramide 10 MG/10 ML UDCUP PO SCH (21:45)
[2018-05-05] MEDS: Cefepime 2 GM in Sodium Chloride 0.9% 100 ML IVPB SCH (22:04)
[2018-05-05] MEDS: Enoxaparin Sodium 100 MG/ML SYRINGE SC SCH (22:04)
[2018-05-05] MEDS: Polyethylene Glycol 3350 17 GM Packet PO SCH (22:04)
[2018-05-05] MEDS: Vancomycin HCl 1.5 GM in Sodium Chloride 0.9% 250 ML 300 ML IVPB SCH (23:00)
[2018-05-06] MEDS: Acetaminophen 500 MG TAB PO PRN ×3 (04:11→18:26)
[2018-05-06] MEDS: Vancomycin HCl 1.5 GM in Sodium Chloride 0.9% 250 ML 300 ML IVPB SCH ×3 (05:59→21:11)
[2018-05-06] MEDS: Sucralfate 1 GM TAB PO SCH ×4 (08:40→21:17)
[2018-05-06] MEDS: Pantoprazole 40 MG VIAL IVP SCH (08:41)
[2018-05-06] MEDS: Metoclopramide 10 MG/10 ML UDCUP PO SCH ×4 (08:41→21:11)
[2018-05-06] MEDS: Enoxaparin Sodium 100 MG/ML SYRINGE SC SCH (08:41)
[2018-05-06] MEDS: Polyethylene Glycol 3350 17 GM Packet PO SCH ×2 (08:42→21:12)
[2018-05-06] MEDS: Cefepime 2 GM in Sodium Chloride 0.9% 100 ML IVPB SCH ×2 (08:48→21:11)
[2018-05-06 09:51] LABS: Hemoglobin 8.8 g/dL (14.0-18.0); Platelet Count 377 thou/uL (130-400)
[2018-05-06 10:11] LABS: Calc. Creatinine Clearance 149 mL/min (70-130); Estimated GFR-MDRD Greater than 90
--- NOTE | 2018-05-06 12:52 | PDOC.CTH ---
Cardiology Progress Note - Subjective He is doing better. No more nausea or vomiting. Had fevers all day yesterday and last one this morning. None since. No chest pain, tightness, pressure, SOB. - Objective Vital Signs Temp Pulse Resp BP Pulse Ox 05/06/18 11:45 26 H 05/06/18 11:17 100.8 F H 104 H 20 125/65 100 05/06/18 10:32 99.7 F H 05/06/18 07:14 99.5 F 90 16 108/57 L 100 05/06/18 05:59 99.4 F 05/06/18 04:02 101.6 F H 93 22 H 111/59 L 100 Admit Weight 237 lb 11.2 oz Weight 245 lb 6.4 oz 05/05/18 05/06/18 05/07/18 06:59 06:59 06:59 Intake Total 1210 4202 650 Output Total 450 1100 Balance 760 3102 650 - Physical Examination General/Neuro: alert & oriented x3, NAD Neck: no JVD present Lungs: CTA, unlabored respirations Heart: RRR Abdomen: NT/ND Extremities: + edema B (trace) - Telemetry Telemetry Rhythm: NSR - Labs Result Diagrams: 05/06/18 09:36 05/06/18 09:36 Troponin/CKMB CK-MB (CK-2) 0.7 ng/mL (0-6.6) 05/04/18 14:16 Troponin I 0.030 ng/mL (< 0.028) H 05/04/18 23:48 - Assessment/Plan 1. 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 2. LV thrombus 3. Fever 4. Recent intra abdominal abscess. PLAN: - Needs ACEI/BB once BP allows. -Will need a LHC but cannot be done until infection is under control, at least 48 hours fever free. - Full anticoagulation with SQ lovenox for now and will need Eliquis or Xarelto before discharge. - Will follow.
[2018-05-06] MEDS ORDERED: Fluconazole In NaCl,Iso-Osm 200 MG in Premix Bag 1 BAG IVPB SCH (23:00)
--- NOTE | 2018-05-06 23:01 | PDOC.GSPN ---
Surgery Progress Note: Subj - Subjective Narrative: Patient has had ongoing fevers despite Tylenol. Other than that he is feeling okay. He denies any chest pain or shortness of breath. Abdomen is soft and nondistended. Bowel sounds are present. White count yesterday was normal. Assessment/plan: Ongoing fevers likely related to the intra-abdominal fluid collection. This is not well defined and is sort of intermixed in the fatty tissues, but there are couple places where a well-defined area of the fluid collection abuts the abdominal wall. The patient is currently fully anticoagulated for left ventricular clot and new onset congestive heart failure , but I have discussed his situation with Dr. Galloway and he feels that his anticoagulation can safely be held for 24 hours for percutaneous drainage of this fluid collection. We will restart him on prophylactic dose Lovenox the same day as the procedure and then increase to full dose the following day. Surgery Progress Note: Obj - Vital signs Vital signs: Vital Signs - Most Recent Temp Pulse Resp BP Pulse Ox 102.2 F H 98 24 H 130/64 100 05/06/18 18:15 05/06/18 18:15 05/06/18 18:15 05/06/18 18:15 05/06/18 18:15 Surgery Progress Note: Results - Labs Result Diagrams: 05/06/18 09:36 05/06/18 09:36 Lab results: Laboratory Results - last 24 hr 05/06/18 20:56 Vancomycin Trough 17.0
[2018-05-07] MEDS: Acetaminophen 500 MG TAB PO PRN ×2 (04:46→12:02)
[2018-05-07] MEDS: Vancomycin HCl 1.25 GM in Sodium Chloride 0.9% 250 ML 250 ML IVPB SCH ×3 (04:46→22:08)
[2018-05-07] MEDS: Metoclopramide 10 MG/10 ML UDCUP PO SCH ×4 (07:57→20:17)
[2018-05-07] MEDS: Polyethylene Glycol 3350 17 GM Packet PO SCH ×2 (07:58→20:17)
[2018-05-07] MEDS: Sucralfate 1 GM TAB PO SCH ×4 (07:58→20:17)
[2018-05-07] MEDS: Cefepime 2 GM in Sodium Chloride 0.9% 100 ML IVPB SCH (07:58)
[2018-05-07] MEDS: Pantoprazole 40 MG VIAL IVP SCH (07:58)
[2018-05-07] MEDS ORDERED: Midazolam HCl 2 mg/2 ml Vial ONE (09:56)
[2018-05-07] MEDS ORDERED: Fentanyl 100 MCG/2 ML VIAL ONE (09:56)
[2018-05-07] MEDS ORDERED: Sodium Bicarbonate 2.5 MEQ/5 ML VIAL ONE (09:56)
[2018-05-07] MEDS: traMADol HCl 50 MG TAB PO PRN (12:01)
[2018-05-07 12:51] LABS: Clarity Cloudy/Turbid (Clear)
[2018-05-07 12:52] LABS: BF Color Brown; Tube # EDTA
[2018-05-07 12:53] LABS: RBC Background Count 0.004; RBC Count-Automated 1010000 /cumm; WBC/NonHematic-Auto 691000 /cumm
--- NOTE | 2018-05-07 13:34 | CT ---
CT GUIDED PERCUTANEOUS ABDOMINAL ABSCESS DRAINAGE: DATE: 05/07/2018. HISTORY: Abscess collection in the right lower quadrant and right upper pelvis which may potentially be contig uous with an area of what appears to be infected fat necrosis. Similar findings were seen on the chela dy of 04/22/2018, although the collection in the right lower quadrant is smaller in size. Replacemen t of drainage catheter was requested. TECHNIQUE: After informed consent was obtained, the patient was placed on the CT scan table in the supine positi on. A noncontrasted CT scan was obtained through the right lower quadrant and right upper pelvis wit h grid localizer in place. An area was marked and then meticulously prepped and draped in the usual sterile fashion. The skin and subcutaneous tissues were infiltrated with buffered 1% Lidocaine for local anesthesia. Utilizing a micropuncture technique, the collection was accessed and confirmation of needle within th e collection was confirmed with [address] images. The needle was exchanged over a 0.0 18 inch guidewire for a 5 [place] introducer sheath, and a 0.035 inch Amplatz guidewire was placed. C onfirmation of the guidewire within the collection was confirmed with axial noncontrasted CT images. A small skin incision was made. The introducer sheath was then exchanged over the guidewire for an 8 [place] tissue dilator followed by placement of an 8 [place] Belmont-loop all-purpose drainage catheter. The Belmont-loop portion of the catheter was coiled within the collection and final images demonstrate the catheter within the collection. Approximately 50 mL of purulent fluid was aspirated. The catheter was placed to gravity drainage and sutured in place utilizing 2-0 Ethilon suture materia l. A dry sterile dressing was placed. The patient tolerated the procedure well and without immediate complication. IMPRESSION: Technically successful abscess drainage with placement of an 8 [place] Belmont-Loop all-purpose drainage catheter within the right lower quadrant/right pelvic abscess collection. POS: [facility]
--- NOTE | 2018-05-07 14:32 | PDOC.CTH ---
Cardiology Progress Note - Subjective No complaints. No CP, SOB or palpitations. s/p abscess drainage. - Objective Vital Signs Temp Pulse Resp BP BP Pulse Ox 05/07/18 11:41 101.3 F H 98 26 H 137/76 05/07/18 08:17 98.8 F 90 20 117/71 100 05/07/18 04:40 102 F H 98 16 131/61 94 L Admit Weight 237 lb 11.2 oz Weight 251 lb 12.8 oz 05/06/18 05/07/18 05/08/18 06:59 06:59 06:59 Intake Total 4202 2690 Output Total 1100 575 Balance 3102 2115 - Physical Examination General/Neuro: alert & oriented x3 Neck: no JVD present Lungs: CTA Heart: RRR Abdomen: NT/ND, other: (distended) Extremities: other: (no edema) - Telemetry Telemetry Rhythm: SR; short run PSVT - Labs Result Diagrams: 05/06/18 09:36 05/06/18 09:36 Troponin/CKMB CK-MB (CK-2) 0.7 ng/mL (0-6.6) 05/04/18 14:16 Troponin I 0.030 ng/mL (< 0.028) H 05/04/18 23:48 - Assessment/Plan 1. 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 LV thrombus 3. Intra abdominal abscess. 4. PSVT Add Coreg 3.125mg BID. Will discuss resuming lovenox and transition to NOAC with GS team. Add ARB vs entresto in the next 24-48 hours. Check labs in AM. Pt seen and exaimned. Aghree wtih above. ACT PO to start tomorrow
[2018-05-07] MEDS: MEROPENEM 1 GM/50 ML 1 GM in Premix Bag 1 BAG IVPB SCH (17:11)
[2018-05-07] MEDS: Micafungin 100 MG in Sodium Chloride 0.9% 100 ML IVPB SCH (17:50)
[2018-05-07] MEDS: Carvedilol 3.125 MG TAB PO SCH (17:51)
--- NOTE | 2018-05-07 18:30 | EKG ---
Test Reason : Blood Pressure : / mmHG Vent. Rate : 085 BPM Atrial Rate : 085 BPM P-R Int : 156 ms QRS Dur : 086 ms QT Int : 362 ms P-R-T Axes : 000 191 117 degrees QTc Int : 430 ms Normal sinus rhythm Right superior axis deviation Inferior infarct , age undetermined Anteroseptal infarct , age undetermined Abnormal ECG Confirmed by ROZ NUNEZ DO ([id number]), manager editorial DANIELITO WATERS ([id number] on 05/07/2018 6:29:24 PM Referred By: Confirmed By:ROZ NUNEZ DO
--- NOTE | 2018-05-07 21:18 | CON ---
DATE OF CONSULTATION: 05/07/2018 REASON FOR CONSULTATION: Intraabdominal inflammatory process following resection of various areas of ascending colon and rectosigmoid. HISTORY OF PRESENT ILLNESS: A 58-year-old patient with a history of untreated hepatitis C many years ago and recent screening colonoscopy, which showed an ascending colon polyp which was biopsied and demonstrated a tubular adenoma and the patient was eventually referred to Dr. Tong and another tubular adenoma was identified in the sigmoid colon. Dr. Tong identified 30-mm polyp at the hepatic flexure and polyp resection was not possible. He also had 4-mm polyp in the sigmoid region and a 12-mm polyp in the rectosigmoid region, removed with hot snare. In the rectosigmoid area, the pathology identified invasive well to moderately differentiated adenocarcinoma with positive margins. Therefore, he underwent resection by Dr. Wilburn at the end of March with laparoscopic right colectomy and sigmoid resection and primary anastomosis. Few days later, the patient developed fever and abdominal distention and underwent repeat exploratory laparotomy with abdominal washout. There was evidence of ischemic transverse colon and ileocolic anastomosis, and the patient had reanastomosis completed. Postoperatively, the patient had prolonged ileus with NG tube requirement and small bowel follow- through that showed normal patency and transit time. The patient had some TPN with resumption of GI function. The patient was discharged on omeprazole, hydrochlorothiazide/lisinopril, and tramadol. Cultures showed negative growth in 5 days from the second surgical procedure washout. The patient was readmitted few days later on 05/04 with recurrence of fever, nausea, and vomiting. Repeat CT scan was performed and it demonstrated slight interval decrease in right lower quadrant peripheral enhancing collection concerning for abscess formation. The patient just had drainage procedures, CT-guided this morning and 50 mL of purulent fluid was removed. Drain was left in place. Currently, Mr. Keenan was hungry and denies headaches, visual symptoms, sore throat, odynophagia, or dysphagia. No chest pain, cough, or sputum production. No dyspnea. Mild abdominal pain at the site of the intervention. He is not having any bowel movement yet. No genitourinary symptoms. No joint symptoms. No neurological symptoms. PAST MEDICAL HISTORY: 1. Hepatitis C, treated successfully many years ago. 2. Hypertension. 3. 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 SOCIAL HISTORY: Never smoker. No other drug use. CURRENT MEDICATIONS: 1. Tylenol. 2. Maalox. 3. Coreg. 4. Cefepime. 5. Lovenox. 6. Diflucan. 7. Protonix. 8. Sucralfate. 9. Vancomycin. FAMILY HISTORY: Noncontributory. PHYSICAL EXAMINATION: VITAL SIGNS: T-max 102.2 recently, blood pressure 130/70, pulse 98, respirations 20 to 26. SKIN: Shows midline laparotomy incision in the right lower quadrant percutaneous drain with purulent drainage in the back. The patient is urinating normally without a catheter. The patient has peripheral IV access in the right hand. HEENT: No lymphadenopathy. Ocular movements conjugate. Oral cavity normal. NECK: Supple. LUNGS: Symmetric. Clear breath sounds. HEART: S1 and S2. Regular rate. No S3 or S4. ABDOMEN: Mildly distended, but not particularly tender. Bowel sounds are diminished. No ascites. No bladder distention. No joint inflammatory activity. EXTREMITIES: Pulses 1+ in dorsalis pedis. No edema. Moves extremities with some limitations. NEUROLOGIC: His cognitive function appears to be intact. LABORATORY DATA: White cell count down from 12.5 to 9.4, hemoglobin 7.7, platelets 303, 63% neutrophils. Sodium 137, creatinine 0.85, bilirubin 2.1, AST 57, ALT 76, albumin 2.3. Urinalysis; 0 to 3 wbc's, negative protein. The aspirate had 691, 000 WBCs predominance of mature neutrophils. Microbiology is pending from that sample and the radiology studies noted above. The last chest x-rays from 4 days ago showed no infiltrates. ASSESSMENT: Tubulovillous adenoma, right ascending colon and rectosigmoid adenocarcinoma, status post resection of the respective areas, reintervention because of ischemia at the ileocolonic anastomosis and now postop abscess in the right lower quadrant which has been aspirated, now with drain left in place. DISCUSSION: Differential diagnosis includes seeding of the peritoneal area, right lower quadrant associated with anastomotic complications from the original surgery with some ischemia, with abscess formation. The organisms typically associated with this include anaerobes, gram-negative rods, enterococcus, Sivan species, and Staphylococcus aureus. We will discontinue cefepime, switch him to meropenem. Discontinue Diflucan, switch him to micafungin until final culture results are available and then deescalate therapy accordingly. Continue vancomycin assays and the decision as to the nature of the continued antimicrobial therapy to be made once we have the final culture results. Assuming proper source control, may need PICC line placement and continuation of IV therapy for protracted periods of time. No evidence of bacteremia at this point and all the central line catheters have been removed. Job ID: [id number] [facility]
--- NOTE | 2018-05-07 21:40 | PDOC.GSPN ---
Surgery Progress Note: Subj - Subjective Narrative: Patient had percutaneous drainage of the right-sided fluid collection today. He tolerated this without problems. He is tolerating full liquids. Still having intermittent fevers but vital signs okay. Purulent fluid from the percutaneous drain site. Gram-negative rods on Gram stain, culture and sensitivities pending. Abdominal wound dressings in place. Assessment/plan: Stable following percutaneous drainage of the right-sided fluid collection. He is on prophylactic Lovenox dose today and will go back to therapeutic dosing tomorrow. Dr. Galloway plans cardiac catheter after he has been afebrile for at least 48 hours. He was tolerating full liquid so I'll advance him to a soft diet tomorrow. Surgery Progress Note: Obj - Vital signs Vital signs: Vital Signs - Most Recent Temp Pulse Resp BP Pulse Ox 99.9 F H 104 H 20 122/69 100 05/07/18 20:15 05/07/18 20:15 05/07/18 20:15 05/07/18 20:15 05/07/18 20:15 Surgery Progress Note: Results - Labs Result Diagrams: 05/06/18 09:36 05/06/18 09:36 Lab results: Laboratory Results - last 24 hr 05/07/18 10:30 Fluid Source Fluid Tube Number EDTA Fluid Color Brown Fluid Clarity Cloudy/Turbid H Fluid WBC [id number] Fluid RBC [id number] Fluid Diff Comment Fluid Seg Neutrophil % Not Reportable Fluid Comment Note:
[2018-05-07 22:00] LABS: Vancomycin, Trough 15.7 ug/mL
[2018-05-08] MEDS: MEROPENEM 1 GM/50 ML 1 GM in Premix Bag 1 BAG IVPB SCH ×3 (00:13→15:59)
[2018-05-08 05:27] LABS: Anion Gap 10 mmol/L (10-20); BUN (Urea Nitrogen) 5 mg/dL (8.4-25.7); Calc. Creatinine Clearance 157 mL/min (70-130); Calcium 8.6 mg/dL (7.8-10.44); Carbon Dioxide 24 mmol/L (22-29); Chloride 104 mmol/L (98-107); Estimated GFR-MDRD Greater than 90; Glucose 126 mg/dL (70-105); Potassium 3.3 mmol/L (3.5-5.1); Sodium 135 mmol/L (136-145)
[2018-05-08] MEDS: Vancomycin HCl 1.25 GM in Sodium Chloride 0.9% 250 ML 250 ML IVPB SCH ×3 (06:25→21:12)
[2018-05-08 07:31] LABS: Hemoglobin 7.3 g/dL (14.0-18.0); Platelet Count 350 thou/uL (130-400)
[2018-05-08 08:11] LABS: Calc. Creatinine Clearance 165 mL/min (70-130); Estimated GFR-MDRD Greater than 90
[2018-05-08] MEDS: Metoclopramide 10 MG/10 ML UDCUP PO SCH ×4 (09:24→20:36)
[2018-05-08] MEDS: Carvedilol 3.125 MG TAB PO SCH ×2 (09:24→17:40)
[2018-05-08] MEDS: Sucralfate 1 GM TAB PO SCH ×4 (09:24→20:36)
[2018-05-08] MEDS: Pantoprazole 40 MG VIAL IVP SCH (09:25)
[2018-05-08] MEDS: Enoxaparin Sodium 100 MG/ML SYRINGE SC SCH (09:25)
[2018-05-08] MEDS: Polyethylene Glycol 3350 17 GM Packet PO SCH ×2 (09:25→20:36)
[2018-05-08] MEDS ORDERED: Potassium Chloride 20 MEQ TAB PO SCH (10:30)
[2018-05-08] MEDS ORDERED: Furosemide 40 MG/4 ML VIAL SLOW IVP SCH (10:30)
[2018-05-08] MEDS ORDERED: Lisinopril 2.5 MG TAB PO SCH (10:30)
--- NOTE | 2018-05-08 12:07 | PDOC.CTH ---
Cardiology Progress Note - Subjective No complaints overnight. Afebrile since yesterday afternoon. Vitals stable. BNP mildly elevated. Lasix IV x 1 and KCl given earlier. - Objective Vital Signs Temp Pulse Resp BP Pulse Ox 05/08/18 11:47 98.5 F 86 20 113/67 100 05/08/18 07:16 98.8 F 89 20 119/67 100 05/08/18 03:43 99.1 F 81 16 111/64 100 05/08/18 00:13 99.2 F Admit Weight 237 lb 11.2 oz Weight 249 lb 1.6 oz 05/07/18 05/08/18 05/09/18 06:59 06:59 06:59 Intake Total 2690 1818 550 Output Total 575 1250 Balance 2115 568 550 - Physical Examination General/Neuro: alert & oriented x3 Neck: no JVD present Lungs: CTA Heart: RRR Abdomen: NT/ND Extremities: other: - Telemetry Telemetry Rhythm: NSR - Labs Result Diagrams: 05/08/18 06:52 05/08/18 06:52 Troponin/CKMB CK-MB (CK-2) 0.7 ng/mL (0-6.6) 05/04/18 14:16 Troponin I 0.030 ng/mL (< 0.028) H 05/04/18 23:48 - Assessment/Plan 1. 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 LV thrombus 3. Intra abdominal abscess. 4. PSVT 5. Hx colon cancer 6. Chronic anemia Continue diuresis with additional IV lasix and KCl. Add lisinopril. Will change lovenox to Eliquis. Monitor H/H closely as outpatient. Possible discharge tomorrow. ?[facility]. Dr. Galloway back to resume care in AM. Agree.
[2018-05-08] MEDS: Micafungin 100 MG in Sodium Chloride 0.9% 100 ML IVPB SCH (17:41)
--- NOTE | 2018-05-08 18:28 | PRG ---
DATE OF SERVICE: 05/08/2018 SUBJECTIVE: Mr. Keenan is feeling well today. He remains on the observation floor, although he has been changed to a full admission. He had an abscess drained in his right lower abdomen by Radiology yesterday. They have initially removed about 50 mL of purulent material. Additional drainage has been produced today. He has been afebrile in the past 24 hours. He tells me that he is eating, but he still does not seem to have really good appetite. He has had three bowel movements today and he notes that they are all somewhat loose. He is voiding well. OBJECTIVE: VITAL SIGNS: On examination, he is afebrile with temperature of 98.6. His last fever was at 11 o'clock yesterday morning and it was 101. His pulse is 86 to 96 today. Blood pressure is 121/74. LUNGS: Clear to auscultation. ABDOMEN: Appears to be mildly protuberant, but soft and nontender. He has very hypoactive bowel sounds. Dressings are on a couple of open spots in his abdominal wound. EXTREMITIES: Unremarkable. LABORATORY DATA: His electrolytes show minor abnormalities with his sodium and potassium both being a little bit low. His BUN and creatinine are normal. His BNP is elevated at 541. His hemoglobin this morning was 7.3 down from 8.8 two days ago. His culture results are still pending from his drainage procedure yesterday, but the Gram stains revealed gram-negative rods and suspicion of anaerobes. ASSESSMENT AND PLAN: The patient with an intraabdominal abscess. He is status post laparoscopic right hemicolectomy and sigmoid colectomy per Dr. Wilburn on April 06, 2018 and exploratory laparotomy with resection and reanastomosis of his transverse colon anastomosis on April 12, 2018. He will continue on IV antibiotics and percutaneous drainage. He is being followed by Cardiology as well. Job ID: [id number]
[2018-05-08] MEDS: Apixaban 5 MG TAB PO SCH (20:35)
[2018-05-08] MEDS: Acetaminophen 500 MG TAB PO PRN (21:19)
[2018-05-09] MEDS: MEROPENEM 1 GM/50 ML 1 GM in Premix Bag 1 BAG IVPB SCH ×4 (00:15→23:41)
[2018-05-09 05:21] LABS: #Eosinphils 0.1 thou/uL (0.0-0.7); #Lymphocytes 2.2 thou/uL (1.20-3.40); #Monocytes 0.6 thou/uL (0.11-0.59); #Neutrophils 5.2 thou/uL (1.40-6.50); %Basophils 0.5 % (0.0-1.0); %Eosinophils 1.5 % (0.0-10.0); %Lymphocytes 26.9 % (21.0-51.0); %Monocytes 7.4 % (0.0-10.0); %Neutrophils 63.7 % (42.0-75.0); Hemoglobin 7.9 g/dL (14.0-18.0); Mean Corpuscular Hemoglobin 26.6 pg (27.0-31.0); Mean Corpuscular Volume 85.8 fL (78.0-98.0); Mean Platelet Volume 8.1 fL (7.4-10.4); Platelet Count 362 thou/uL (130-400); RBC Distribution Width 16.8 % (11.5-14.5); Red Blood Cell (RBC) Count 2.98 mill/uL (4.70-6.10); White Blood Cell (WBC) Count 8.1 thou/uL (4.8-10.8)
[2018-05-09] MEDS: Vancomycin HCl 1.25 GM in Sodium Chloride 0.9% 250 ML 250 ML IVPB SCH ×3 (05:40→21:32)
[2018-05-09] MEDS ORDERED: Furosemide 20 MG TAB PO SCH (08:00)
[2018-05-09] MEDS: Metoclopramide 10 MG/10 ML UDCUP PO SCH ×4 (09:12→21:24)
[2018-05-09] MEDS: Sucralfate 1 GM TAB PO SCH ×4 (09:13→21:23)
[2018-05-09] MEDS: Carvedilol 3.125 MG TAB PO SCH ×2 (09:13→18:30)
[2018-05-09] MEDS: Pantoprazole 40 MG VIAL IVP SCH (09:14)
[2018-05-09] MEDS: Lisinopril 2.5 MG TAB PO SCH (09:14)
[2018-05-09] MEDS: Polyethylene Glycol 3350 17 GM Packet PO SCH ×2 (09:15→21:23)
[2018-05-09] MEDS: Apixaban 5 MG TAB PO SCH ×2 (09:17→21:22)
--- NOTE | 2018-05-09 16:52 | PRG ---
DATE OF SERVICE: 05/09/2018 SUBJECTIVE: Mr. Keenan has been transferred from the observation floor to the telemetry floor. He is hospital day #6 following his readmission. He had his intraabdominal abscess drained two days ago. The cultures from this reveal Bacteroides. It does not appear that the culture results are final yet. The patient tells me that he is still having occasional fairly loose bowel movements, but does not have much of an appetite. He denies significant abdominal pain. He feels as though his abdomen is bloated. OBJECTIVE: VITAL SIGNS: On examination, he has a maximum temperature of 99.8 today after having a temperature of a 100.2 last night. His pulse is 87, blood pressure 126/78. LUNGS: Clear to auscultation. ABDOMEN: Protuberant and perhaps a bit distended. The bowel sounds are hypoactive. Dressing is intact on his midline abdominal wound. He has a drain exiting the right lower quadrant. LABORATORY DATA: His white blood cell count is 8.1 with a normal differential. Hemoglobin is 7.9, up from 7.3 yesterday. Has not had a chemistry panel checked today. ASSESSMENT AND PLAN: He continues to improve following drainage of his abscess and continuation of antibiotics. He remains on meropenem, micafungin, and vancomycin. He continues to receive MiraLAX. He does not appear stable for discharge from gastrointestinal function standpoint. So, continue the same care for now. Job ID: [id number]
--- NOTE | 2018-05-09 18:09 | RAD ---
ABDOMEN TWO VIEWS: 05/09/2018 HISTORY: Follow-up evaluation. Ileus versus small bowel obstruction. COMPARISON: 05/01/2018 FINDINGS: The previously seen contrast within the colon is no longer visualized. There is now a drainage [address] ter seen overlying the right lower quadrant. There are prominently dilated loops of small bowel seen , greatest in the central and left aspect of the abdomen. There is an area of heterogeneity in the r ight lateral abdomen, which likely corresponds to the area of fluid and stranding within the right la teral abdomen, which, on CT examination, has the appearance suggesting fat necrosis with probable ass ociated infection. There is atelectasis present at each lung base. IMPRESSION: 1. Dilated loops of small bowel within the abdomen, which could be related to either ileus or a part ial small bowel obstruction. 2. Heterogeneity, right lateral abdomen. An area of fluid, stranding, and heterogeneity was seen on recent CT scan examination in these region, which could be related to an area of fat necrosis with a ssociated infection. 3. [place] loop drainage catheter overlying the right pelvis. POS: EL
[2018-05-09] MEDS: Micafungin 100 MG in Sodium Chloride 0.9% 100 ML IVPB SCH (18:30)
--- NOTE | 2018-05-09 21:11 | PDOC.CTH ---
Cardiology Progress Note - Subjective No new issues. - Objective Vital Signs Temp Pulse Resp BP BP Pulse Ox 05/09/18 15:35 99.6 F 87 20 126/78 93 L 05/09/18 12:20 99.8 F H 89 20 132/80 05/09/18 10:45 97 05/09/18 10:25 99.1 F 91 22 H 108/63 97 05/09/18 09:14 86 123/77 Admit Weight 237 lb 11.2 oz Weight 241 lb 05/08/18 05/09/18 05/10/18 06:59 06:59 06:59 Intake Total 1818 2810 240 Output Total 1250 1710 25 Balance 568 1100 215 - Physical Examination General/Neuro: alert & oriented x3, NAD Neck: no JVD present Lungs: unlabored respirations Heart: RRR Abdomen: NT/ND Extremities: + edema B (1+) - Telemetry Telemetry Rhythm: NSR. VT 4 beat run - Labs Result Diagrams: 05/09/18 04:54 05/08/18 06:52 Troponin/CKMB CK-MB (CK-2) 0.7 ng/mL (0-6.6) 05/04/18 14:16 Troponin I 0.030 ng/mL (< 0.028) H 05/04/18 23:48 - Assessment/Plan 1. New onset dilated CM 2. LV thrombus 3. Intra abdominal abscess, s/p drain placement. 4. NSVT 5. Hx colon cancer 6. Chronic anemia PLAN: - Continue drainage and Abx per pirmary team. - Continue full anticoagulation. - Continue CHF meds - Will add BB once BP allows.
[2018-05-09 21:50] LABS: Vancomycin, Trough 20.3 ug/mL
[2018-05-10 08:31] LABS: Platelet Count 362 thou/uL (130-400)
[2018-05-10 08:41] LABS: Calc. Creatinine Clearance 152 mL/min (70-130); Estimated GFR-MDRD Greater than 90
[2018-05-10] MEDS: MEROPENEM 1 GM/50 ML 1 GM in Premix Bag 1 BAG IVPB SCH ×2 (09:02→17:00)
[2018-05-10] MEDS: Sucralfate 1 GM TAB PO SCH ×4 (09:03→21:50)
[2018-05-10] MEDS: Apixaban 5 MG TAB PO SCH ×2 (09:03→21:50)
[2018-05-10] MEDS: Metoclopramide 10 MG/10 ML UDCUP PO SCH ×4 (09:03→21:50)
[2018-05-10] MEDS: Lisinopril 2.5 MG TAB PO SCH (09:03)
[2018-05-10] MEDS: Carvedilol 3.125 MG TAB PO SCH ×2 (09:04→17:01)
[2018-05-10] MEDS: Polyethylene Glycol 3350 17 GM Packet PO SCH ×2 (09:05→21:51)
[2018-05-10] MEDS: Vancomycin HCl 1.75 GM in Sodium Chloride 0.9% 500 ML IVPB SCH ×2 (11:19→21:55)
--- NOTE | 2018-05-10 17:07 | PRG ---
DATE OF SERVICE: 05/10/2018 SUBJECTIVE: Mr. Keenan is hospital day #7 following his readmission. He had his intraabdominal abscess drained 3 days ago. Cultures revealed Bacteroides. The patient tells me that he passed a large amount of gas yesterday, but no real bowel movements recently. He denies significant abdominal pain. He denies vomiting, but is unable to tolerate any significant oral intake. He notes his drain output has dropped off substantially (down to 25 mL from 110 the day before). By my examination, this appears to be almost serous at this time, whereas yesterday it appeared as though it was a thick purulent material. Yesterday, I obtained a KUB, which revealed extensive small bowel dilatation, primarily to the left side of the abdomen. OBJECTIVE: VITAL SIGNS: On examination, he is afebrile. His pulse is in the 80s. Blood pressure is 130/80. LUNGS: Clear to auscultation. ABDOMEN: Soft. Still appears to be distended. Bowel sounds are hypoactive, but present. There is a dressing on the mid abdominal wound and the drain exiting right lower quadrant. There is no focal area of tenderness that I can discern. LABORATORY DATA: His creatinine is normal at 0.8. Electrolytes have been checked recently. Hemoglobin is stable at 8.0. White blood cell count was not checked recently. ASSESSMENT: Although, he has no obvious infectious signs such as fever, elevated white blood cell count, he still has what appears to be abdominal distention and inability to take adequate oral intake. He feels weak to the point that he only really feels comfortable walking when he has assistance with a walking program, so he does have limited activity as well. Although, he has had a number of CAT scans performed, I am uncertain what is going on in his abdomen. It is preventing him from having normal GI function and eating in normal fashion. Another CT scan may be indicated (although his last abscess drainage CT was on the . Dr. Wilburn will return tomorrow to resume his care. Job ID: [id number]
--- NOTE | 2018-05-10 17:20 | PDOC.CTH ---
Cardiology Progress Note - Subjective No new issues. No chest pain, tightness. pressure, SOB. - Objective Vital Signs Temp Pulse Resp BP Pulse Ox 05/10/18 16:57 99.5 F 82 15 118/73 96 05/10/18 11:25 87 16 131/82 97 05/10/18 09:03 81 05/10/18 07:36 98.4 F 82 15 120/72 96 Admit Weight 237 lb 11.2 oz Weight 247 lb 1.6 oz 05/09/18 05/10/18 05/11/18 06:59 06:59 06:59 Intake Total 2810 775 Output Total 1710 375 300 Balance 1100 400 -300 - Physical Examination General/Neuro: alert & oriented x3, NAD Neck: no JVD present Lungs: CTA, unlabored respirations Heart: RRR Abdomen: NT/ND Extremities: + edema B (Trace) - Telemetry Telemetry Rhythm: S tach - Labs Result Diagrams: 05/10/18 08:05 05/10/18 08:05 Troponin/CKMB CK-MB (CK-2) 0.7 ng/mL (0-6.6) 05/04/18 14:16 Troponin I 0.030 ng/mL (< 0.028) H 05/04/18 23:48 - Assessment/Plan 1. New onset dilated CM 2. LV thrombus 3. Intra abdominal abscess, s/p drain placement. 4. NSVT 5. Hx colon cancer 6. Chronic anemia PLAN: - Continue drainage and Abx per pirmary team. - Continue full anticoagulation. - Continue CHF meds - Will add BB tomorrow if BP remains stable. - No more purulent material being drained, hopefully his abscess is improving.
[2018-05-10] MEDS: Micafungin 100 MG in Sodium Chloride 0.9% 100 ML IVPB SCH (17:41)
[2018-05-11] MEDS: MEROPENEM 1 GM/50 ML 1 GM in Premix Bag 1 BAG IVPB SCH ×4 (00:07→23:51)
[2018-05-11 06:08] LABS: #Basophils 0.1 thou/uL (0.0-0.2); #Eosinphils 0.2 thou/uL (0.0-0.7); #Lymphocytes 2.5 thou/uL (1.20-3.40); #Monocytes 0.6 thou/uL (0.11-0.59); #Neutrophils 6.1 thou/uL (1.40-6.50); %Basophils 0.7 % (0.0-1.0); %Lymphocytes 26.2 % (21.0-51.0); %Monocytes 6.5 % (0.0-10.0); %Neutrophils 64.5 % (42.0-75.0); Hemoglobin 8.1 g/dL (14.0-18.0); Mean Corpuscular HGB CONC 30.9 g/dL (32.0-36.0); Mean Corpuscular Hemoglobin 26.4 pg (27.0-31.0); Mean Corpuscular Volume 85.4 fL (78.0-98.0); Mean Platelet Volume 8.2 fL (7.4-10.4); Platelet Count 362 thou/uL (130-400); RBC Distribution Width 17.4 % (11.5-14.5); Red Blood Cell (RBC) Count 3.07 mill/uL (4.70-6.10); White Blood Cell (WBC) Count 9.5 thou/uL (4.8-10.8)
[2018-05-11 06:23] LABS: Anion Gap 13 mmol/L (10-20); BUN (Urea Nitrogen) 6 mg/dL (8.4-25.7); Calc. Creatinine Clearance 158 mL/min (70-130); Calcium 8.7 mg/dL (7.8-10.44); Carbon Dioxide 21 mmol/L (22-29); Chloride 108 mmol/L (98-107); Estimated GFR-MDRD Greater than 90; Glucose 116 mg/dL (70-105); Potassium 3.9 mmol/L (3.5-5.1); Sodium 138 mmol/L (136-145)
[2018-05-11] MEDS ORDERED: Apixaban 2.5 MG TAB PO SCH (09:00)
[2018-05-11] MEDS: Sucralfate 1 GM TAB PO SCH ×4 (09:28→21:55)
[2018-05-11] MEDS: Lisinopril 2.5 MG TAB PO SCH (09:28)
[2018-05-11] MEDS: Carvedilol 3.125 MG TAB PO SCH ×2 (09:28→16:26)
[2018-05-11] MEDS: Polyethylene Glycol 3350 17 GM Packet PO SCH ×2 (09:29→21:56)
[2018-05-11] MEDS: Metoclopramide 10 MG/10 ML UDCUP PO SCH ×4 (09:29→21:55)
[2018-05-11 09:50] LABS: Vancomycin, Trough 17.6 ug/mL
[2018-05-11] MEDS: Vancomycin HCl 1.75 GM in Sodium Chloride 0.9% 500 ML IVPB SCH ×2 (10:17→21:55)
[2018-05-11] MEDS: Apixaban 5 MG TAB PO SCH (10:27)
--- NOTE | 2018-05-11 12:26 | PQF ---
CLINICAL DOCUMENTATION IMPROVEMENT CLARIFICATION FORM: ICD-10 Updated PLEASE DO AN ADDENDUM TO THE PROGRESS NOTE WITH ANY DOCUMENTATION UPDATES OR ADDITIONS AND CARRY THROUGH TO DC SUMMARY. THANK YOU. DATE: 05/11/2018 ATTN: Dr. Wilburn Please exercise your independent, professional judgment in responding to the clarification form. Clinical indicators are provided on the bottom of this form for your review Please check appropriate box(es): [ ] Sepsis due to: [ ] Localized infection without sepsis [ ] Other diagnosis [ ] Unable to determine In addition, please specify: Present on Admission (POA): [ ] Yes [ ] No [ ] Unable to determine For continuity of documentation, please document condition throughout progress notes and discharge summary. Thank You. CLINICAL INDICATORS - SIGNS / SYMPTOMS / LABS ED RECORD 05/04/18: BP 115/72 Pulse 106 Resp 23 Temp: 101.4 ID CONSULT 05/07: T-max 102.2 recently, BP 130/70 Pulse 98 Resp. 20 to 26 White cell count down from 12.5 to 9.4 PN 05/09 (Alejandrina): He had his intrabdominal abscess drained 2 days ago. The cultures from this reveal Bacteroides. Maximum Temp 99.8 after having temperature of 100.2 last night RISKS: H&P 05/04: S/p recent prolonged hospitalization 04/06-04/30/18. Hx Hep C, HTN, rectosigmoid adenocarcinoma, & tubulovillous adenoma w/ cancer at the margins undergoing laparoscopic sigmoid resection, unresectable poly of the hepatic flexure, undergoing laparoscopic r colectomy w/ redo anastomosis. Fever postoperatively. TREATMENT: ID Consult PN 05/08 (Alejandrina): He had an abscess drained in his r lower abdomen by Radiology yesterday. PN 05/09 (Alejandrina): He remains on meropenem, micafungin, and vancomycin. Thank you, Edna (This form is maintained as a part of the permanent medical record) 2014 [employer]. All Rights Reserved Edna Mccarty, RN, BSN [email or web address] Office: [phone] [facility]
[2018-05-11 12:39] VITALS: BMI 30.9
--- NOTE | 2018-05-11 12:42 | PRG ---
DATE OF SERVICE: 05/11/2018 SUBJECTIVE: Axel Keenan is doing better today. He is eating well. He underwent CT-guided drainage of right lower quadrant abscess cavity. Cultures, Bacteroides, and since that time his fevers have resolved. The patient reports also his indigestion has resolved. He is on anticoagulation for intramural laminated thrombus, followed by Dr. Galloway. Dr. Hammonds is planning on placing a PICC line and treating with intravenous antibiotics for at least 2 weeks. The patient will need a future cardiac catheterization for his cardiomyopathy, 35% to 40% EF with dyskinesis of apex. The patient reports his indigestion has resolved. He has been afebrile since 05/08/2018. Blood cultures have remained negative. Right lower quadrant intraperitoneal abscess, CT-guided drainage, Bacteroides fragilis. OBJECTIVE: LUNGS: Clear to auscultation. CARDIAC: Regular rhythm without murmur or gallop. ABDOMEN: Soft, nontender. LABORATORY DATA: White count 9, hemoglobin 8.1. Renal function is normal. ASSESSMENT AND PLAN: Intraperitoneal abscess, status post drainage. We will ask nurses to teach him how to irrigate his drainage catheter, give him supplies to do so. We will have a followup CAT scan in approximately a week to 10 days and we will check this in the office and hopefully remove his drainage catheter. He will be on intravenous antibiotics for 2 weeks. Anticipate discharge in the next 24 to 48 hours pending PICC line and arrangements for outpatient intravenous antibiotics. Job ID: [id number]
[2018-05-11] MEDS: Micafungin 100 MG in Sodium Chloride 0.9% 100 ML IVPB SCH (17:18)
--- NOTE | 2018-05-11 17:24 | PRG ---
DATE OF SERVICE: 05/11/2018 SUBJECTIVE: Mr. Keenan is feeling better, less pain and less dyspnea. No chest pain. OBJECTIVE: VITAL SIGNS: T-max 99.9, blood pressure 120/70, pulse 87, respirations 15, O2 saturation 97%. GENERAL: Appears a bit apprehensive. He is not diaphoretic. Ocular movements conjugate. LUNGS: Symmetric air entry. Clear breath sounds. HEART: S1 and S2. Regular rate. ABDOMEN: Soft with mild tenderness in right lower quadrant. NEUROLOGIC: Nonfocal. LABORATORY DATA: White cell count 9.5, hemoglobin 8.1, platelets 362. Sodium 138, creatinine 0.8. Microbiology with Bacteroides fragilis from fluid abscess cultures. ASSESSMENT AND DISCUSSION: Tubulovillous adenoma, right ascending colon and rectosigmoid adenocarcinoma, status post resection of respective areas with postoperative complications noted with abscess development, which has been drained now. Continue either meropenem or Invanz for protracted period of time. The patient also will need a coronary angiogram down the road once the infection is treated. Job ID: [id number]
--- NOTE | 2018-05-11 17:49 | PDOC.CTH ---
Cardiology Progress Note - Subjective No new issues. PICC line to be placed for 2 week course of IV abx. - Objective Vital Signs Temp Pulse Resp BP Pulse Ox 05/11/18 16:20 99.1 F 87 15 121/72 97 05/11/18 11:49 99.0 F 84 15 116/70 96 05/11/18 09:28 80 05/11/18 07:14 99.9 F H 80 14 124/76 96 Admit Weight 237 lb 11.2 oz Weight 247 lb 3.2 oz 05/10/18 05/11/18 05/12/18 06:59 06:59 06:59 Intake Total 775 2345 Output Total 375 1358 Balance 400 987 - Physical Examination General/Neuro: alert & oriented x3, NAD Neck: no JVD present Lungs: unlabored respirations Heart: RRR Abdomen: NT/ND Extremities: + edema B (1+) - Telemetry Telemetry Rhythm: NSR - Labs Result Diagrams: 05/11/18 05:40 05/11/18 05:40 Troponin/CKMB CK-MB (CK-2) 0.7 ng/mL (0-6.6) 05/04/18 14:16 Troponin I 0.030 ng/mL (< 0.028) H 05/04/18 23:48 - Assessment/Plan 1. New onset dilated CM 2. LV thrombus 3. Intra abdominal abscess, s/p drain placement. 4. NSVT 5. Hx colon cancer 6. Chronic anemia PLAN: - Continue drainage and Abx per primary team. - Continue full anticoagulation. May hold for PICC line placement. - Continue CHF meds - Will need a 2 week course of IV abx and may be able to do LHC in 2 -4 weeks. .
[2018-05-12] MEDS: Metoclopramide 10 MG/10 ML UDCUP PO SCH ×4 (08:41→21:09)
[2018-05-12] MEDS: Carvedilol 3.125 MG TAB PO SCH ×2 (08:41→16:35)
[2018-05-12] MEDS: Sucralfate 1 GM TAB PO SCH ×4 (08:41→21:10)
[2018-05-12] MEDS: Lisinopril 2.5 MG TAB PO SCH (08:41)
[2018-05-12] MEDS: Polyethylene Glycol 3350 17 GM Packet PO SCH ×2 (08:42→21:09)
[2018-05-12] MEDS: MEROPENEM 1 GM/50 ML 1 GM in Premix Bag 1 BAG IVPB SCH ×2 (09:45→16:35)
[2018-05-12] MEDS: Vancomycin HCl 1.75 GM in Sodium Chloride 0.9% 500 ML IVPB SCH ×2 (10:25→21:10)
[2018-05-12 10:42] LABS: Platelet Count 435 thou/uL (130-400)
[2018-05-12 10:47] LABS: Calc. Creatinine Clearance 152 mL/min (70-130); Estimated GFR-MDRD Greater than 90
--- NOTE | 2018-05-12 13:53 | CT ---
CT GUIDED PERCUTANEOUS ABDOMINAL ABSCESS DRAINAGE: DATE: 05/07/2018. HISTORY: Abscess collection in the right lower quadrant and right upper pelvis which may potentially be contig uous with an area of what appears to be infected fat necrosis. Similar findings were seen on the chela dy of 04/22/2018, although the collection in the right lower quadrant is smaller in size. Replacemen t of drainage catheter was requested. TECHNIQUE: After informed consent was obtained, the patient was placed on the CT scan table in the supine positi on. A noncontrasted CT scan was obtained through the right lower quadrant and right upper pelvis wit h grid localizer in place. An area was marked and then meticulously prepped and draped in the usual sterile fashion. The skin and subcutaneous tissues were infiltrated with buffered 1% Lidocaine for local anesthesia. Utilizing a micropuncture technique, the collection was accessed and confirmation of needle within th e collection was confirmed with [address] images. The needle was exchanged over a 0.0 18 inch guidewire for a 5 Kazakh introducer sheath, and a 0.035 inch Amplatz guidewire was placed. C onfirmation of the guidewire within the collection was confirmed with axial noncontrasted CT images. A small skin incision was made. The introducer sheath was then exchanged over the guidewire for an 8 Kazakh tissue dilator followed by placement of an 8 Kazakh Tar[place]-loop all-purpose drainage catheter. The Tarboro-loop portion of the catheter was coiled within the collection and final images demonstrate the catheter within the collection. Approximately 50 mL of purulent fluid was aspirated. The catheter was placed to gravity drainage and sutured in place utilizing 2-0 Ethilon suture materia l. A dry sterile dressing was placed. The patient tolerated the procedure well and without immediate complication. IMPRESSION: Technically successful abscess drainage with placement of an 8 Kazakh [place]-Loop all-purpose drainage catheter within the right lower quadrant/right pelvic abscess collection.
--- NOTE | 2018-05-12 14:01 | SPC ---
ULTRASOUND GUIDED LEFT UPPER EXTREMITY PICC PLACEMENT: DATE: 05/12/2018. HISTORY: Abdominal infection in need of IV antibiotics. FINDINGS: Informed consent obtained prior to the procedure. Left antecubital fossa is prepped and draped in normal sterile fashion. The skin overlying the basil ic vein is anesthetized with 1% buffered Lidocaine. With direct sonographic guidance, vascular acces s is obtained via the left basilic vein and an 0.018 wire is advanced to the IVC, retracted to the ca voatrial junction, with intravascular length calculated at 48 cm. The PICC was cut accordingly. The needle was removed and replaced with a peelaway sheath. The PICC is advanced over the wire. The wi re and peelaway sheath are removed. The catheter flushes well and is ready for use. The tip of the catheter overlies the cavoatrial junction. EXPOSURE DATA: 0.2 minutes of fluoroscopic time, 2643 mGy*^cm2. IMPRESSION: Successful ultrasound-guided left upper extremity PICC placement as above. POS: [facility]
[2018-05-12] MEDS: Micafungin 100 MG in Sodium Chloride 0.9% 100 ML IVPB SCH (17:16)
--- NOTE | 2018-05-12 19:17 | PDOC.CTH ---
Cardiology Progress Note - Subjective No new issues. No more fevers. Drain still in place. - Objective Vital Signs Temp Pulse Resp BP Pulse Ox 05/12/18 16:30 98.5 F 74 16 111/74 98 05/12/18 11:16 98.4 F 82 16 124/74 97 05/12/18 07:30 98.5 F 85 16 129/62 96 Admit Weight 237 lb 11.2 oz Weight 248 lb 05/11/18 05/12/18 05/13/18 06:59 06:59 06:59 Intake Total 2345 3572 2210 Output Total 1358 1957 1400 Balance 987 1615 810 - Physical Examination General/Neuro: alert & oriented x3, NAD Neck: no JVD present Lungs: CTA, unlabored respirations Heart: RRR Abdomen: NT/ND Extremities: other: (1+) - Telemetry Telemetry Rhythm: NSR - Labs Result Diagrams: 05/12/18 10:20 05/12/18 10:20 Troponin/CKMB CK-MB (CK-2) 0.7 ng/mL (0-6.6) 05/04/18 14:16 Troponin I 0.030 ng/mL (< 0.028) H 05/04/18 23:48 - Assessment/Plan 1. New onset dilated CM 2. LV thrombus 3. Intra abdominal abscess, s/p drain placement. 4. NSVT 5. Hx colon cancer 6. Chronic anemia PLAN: - Continue drainage and Abx per primary team. - Continue full anticoagulation after PICC line placement. - Continue CHF meds - Will need a 2 week course of IV abx and may be able to do LHC in 4 weeks. .
--- NOTE | 2018-05-12 20:13 | PRG ---
DATE OF SERVICE: 05/12/2018 SUBJECTIVE: Mr. Keenan is doing well today. He is tolerating his diet. He has noted normal bowel function. He has not had any ingestion. He has not had any nausea or vomiting. OBJECTIVE: VITAL SIGNS: Temperature 98.5 degrees, pulse 74, and blood pressure 111/74. LUNGS: Clear to auscultation. CARDIAC: Regular rate and rhythm without murmur or gallop. ABDOMEN: Soft, nondistended, and non-tympanitic. Wound dressings in place. EXTREMITIES: Unremarkable. ASSESSMENT AND PLAN: 1. Status post CT-guided drainage of abdominal abscess with 7 mL out in the last 24 hours. Cultures revealed Bacteroides fragilis. Dr. Hammonds has seen him and a PICC line has been placed. His plan is to for intravenous antibiotics for at least 2 weeks duration. The patient currently on meropenem, micafungin, and vancomycin. I think his vancomycin would probably be discontinued. We will await Dr. Hammonds' recommendations for final antibiotic regimen. 2. Intramural thrombus laminated, seen by Dr. Galloway, on anticoagulation with Takotsubo cardiomyopathy versus recent myocardial infarction. The patient is to have a cardiac catheterization in the future per Dr. Galloway. 3. Multiple abdominal operations. Try to avoid future intervention. 4. Anticipate discharge home tomorrow with outpatient antibiotic infusion arranged per Dr. Hammonds. Antibiotics per Dr. Hammonds. Follow up with Dr. Galloway, Cardiology outpatient. Continue anticoagulation. Job ID: [id number]
[2018-05-12] MEDS: Apixaban 2.5 MG TAB PO SCH (21:09)
[2018-05-13] MEDS: MEROPENEM 1 GM/50 ML 1 GM in Premix Bag 1 BAG IVPB SCH ×3 (00:09→15:37)
[2018-05-13] MEDS: Sucralfate 1 GM TAB PO SCH ×3 (08:52→16:37)
[2018-05-13] MEDS: Metoclopramide 10 MG/10 ML UDCUP PO SCH ×3 (08:52→16:37)
[2018-05-13] MEDS: Lisinopril 2.5 MG TAB PO SCH (08:52)
[2018-05-13] MEDS: Apixaban 2.5 MG TAB PO SCH (08:53)
[2018-05-13] MEDS: Carvedilol 6.25 MG TAB PO SCH ×2 (08:53→16:37)
[2018-05-13] MEDS: Polyethylene Glycol 3350 17 GM Packet PO SCH (08:53)
[2018-05-13] MEDS ORDERED: Apixaban 2.5 MG TAB PO SCH (09:00)
--- NOTE | 2018-05-13 09:19 | PQF ---
CLINICAL DOCUMENTATION IMPROVEMENT CLARIFICATION FORM: ICD-10 Updated PLEASE DO AN ADDENDUM TO THE PROGRESS NOTE WITH ANY DOCUMENTATION UPDATES OR ADDITIONS AND CARRY THROUGH TO DC SUMMARY. THANK YOU. DATE: 05/13/2018 ATTN: Dr. Wilburn Please exercise your independent, professional judgment in responding to the clarification form. Clinical indicators are provided on the bottom of this form for your review Please check appropriate box(es): [ ] Sepsis due to: [ ] Localized infection without sepsis [ ] Other diagnosis [ ] Unable to determine In addition, please specify: Present on Admission (POA): [ ] Yes [ ] No [ ] Unable to determine For continuity of documentation, please document condition throughout progress notes and discharge summary. Thank You. CLINICAL INDICATORS - SIGNS / SYMPTOMS / LABS ED RECORD 05/04/18: BP 115/72 Pulse 106 Resp 23 Temp: 101.4 ID CONSULT 05/07: T-max 102.2 recently, BP 130/70 Pulse 98 Resp. 20 to 26 White cell count down from 12.5 to 9.4 PN 05/09 (Alejandrina): He had his intrabdominal abscess drained 2 days ago. The cultures from this reveal Bacteroides. Maximum Temp 99.8 after having temperature of 100.2 last night RISKS: H&P 05/04: S/p recent prolonged hospitalization 04/06-04/30/18. 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 Fever postoperatively. TREATMENT: ID Consult PN 05/08 (Alejandrina): He had an abscess drained in his r lower abdomen by Radiology yesterday. PN 05/09 (Alejandrina): He remains on meropenem, micafungin, and vancomycin. Thank you, Edna (This form is maintained as a part of the permanent medical record) 2014 [employer]. All Rights Reserved Edna Mccarty RN, BSN [email or web address] Office: [phone] [facility]
--- NOTE | 2018-05-13 15:47 | PRG ---
DATE OF SERVICE: SUBJECTIVE: No acute distress. Awake, feels a little better. Still with some abdominal pain in the right side. No dyspnea. No vomiting. OBJECTIVE: VITAL SIGNS: T-max 98.4, blood pressure 117/72, pulse 78, respirations 16, and O2 saturation 97%. HEENT: Ocular movements conjugate. LUNGS: Symmetric air entry. ABDOMEN: Mild to moderately distended. Drain in place. EXTREMITIES: 1+ edema lower extremities. LABORATORY DATA: White cell count 9.5, hemoglobin 8.1, platelets 262. Normal liver profile. Sodium 138, creatinine 0.8. ALT 64, AST 36, alkaline phosphatase 132, and bilirubin total 2.1. Microbiology with Bacteroides fragilis from the peritoneal fluid abscess. 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 The patient to continue Invanz or meropenem in the outpatient setting for a protracted period of time. Follow up imaging studies with eventual removal of the drain. Down the road, he will need evaluation of coronary artery disease with angiogram whenever he is eligible for intervention. Job ID: [id number]
[2018-05-13 15:53] VITALS: BP 122/75; TEMP 98.2
--- NOTE | 2018-05-13 16:33 | PDOC.CTH ---
Cardiology Progress Note - Subjective No new issues. - Objective Vital Signs Temp Pulse Resp BP Pulse Ox 05/13/18 15:50 98.2 F 82 14 122/75 98 05/13/18 11:17 98.3 F 78 16 117/72 97 05/13/18 08:12 98.2 F 78 16 131/77 96 Admit Weight 237 lb 11.2 oz Weight 248 lb 05/12/18 05/13/18 05/14/18 06:59 06:59 06:59 Intake Total 3572 2500 Output Total 1957 2153 Balance 1615 347 - Physical Examination General/Neuro: alert & oriented x3, NAD Neck: no JVD present Lungs: unlabored respirations Heart: RRR Abdomen: NT/ND Extremities: + edema B (trace) - Telemetry Telemetry Rhythm: NSR - Labs Result Diagrams: 05/12/18 10:20 05/12/18 10:20 Troponin/CKMB CK-MB (CK-2) 0.7 ng/mL (0-6.6) 05/04/18 14:16 Troponin I 0.030 ng/mL (< 0.028) H 05/04/18 23:48 - Assessment/Plan 1. New onset dilated CM 2. LV thrombus 3. Intra abdominal abscess, s/p drain placement. 4. NSVT 5. Hx colon cancer 6. Chronic anemia PLAN: - Continue drainage and Abx per primary team. - Continue full anticoagulation after PICC line placement. - Continue CHF meds, will up titrate today. - Will need a 2 week course of IV abx and may be able to do LHC in 4 weeks. - May discharge anytime from cardiac perspective. - Follow up in 1 month.
[2018-05-13] MEDS: Micafungin 100 MG in Sodium Chloride 0.9% 100 ML IVPB SCH (16:37)
[2018-05-13] MEDS ORDERED: Apixaban 5 MG TAB PO SCH (21:00)
[2018-05-14] MEDS ORDERED: Lisinopril 5 MG TAB PO SCH (09:00)
--- NOTE | 2018-05-15 22:21 | DIS ---
DATE OF ADMISSION: 05/04/2018 DATE OF DISCHARGE: 05/13/2018 DISCHARGE MEDICATIONS: 1. Meropenem 1 g daily to begin to administer at the [facility] outpatient. 2. Eliquis 5 mg b.i.d. 3. Carvedilol 6.25 mg b.i.d. 4. Lisinopril 5 mg daily. 5. Tylenol p.r.n. pain. 6. Motrin p.r.n. pain. 7. Ultram p.r.n. pain. 8. MiraLAX daily pfor-jle-ahesxvy as needed. 9. Protonix gwwi-gnv-vqagvyp daily as needed. FOLLOWUP: Outpatient [facility] center, meropenem daily for at least [address] Hammonds will see him there during infusion to assess antibiotics. Follow up Dr. Galloway in 2 to 3 weeks for coronary artery disease, will need a cardiac catheterization in the future, has laminated thrombus in his ventricle, on anticoagulation. 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 Follow up with Dr. Wilburn after the CAT scan 05/19/2018 at 0930 hours to determine management of the drain. The patient is to flush his drain twice a day with saline 7 to 8 mL into the abdominal cavity, 2 to 3 mL into the drain, flush the drain as needed to maintain patency, record drainage output. HISTORY: A 58-year-old male patient who was recently discharged from the hospital before [place], readmitted today with complaints of abdominal pain and fever. He has indigestion, dyspepsia. The patient had initially presented with a hepatic flexure polyp that could not be resected endoscopically and adenocarcinoma, tubulovillous adenoma rectosigmoid, both of which were tattooed. He underwent laparoscopic right colectomy and sigmoid resection on 04/06/2018. Pathology revealed no evidence of residual disease and the resected polyp from the transverse colon. The patient postoperatively developed problems requiring reoperation on 04/12/2018, laparotomy with redo of the ileocolic anastomosis. There was a severe serositis and questionable ischemic changes. Pathology reveals serositis changes. The patient had a prolonged ileus, treated with TPN, analgesics. He had a VAC wound care. He had persistent dilated loops, but no evidence of obstruction on repeat CAT scans. He was discharged home on 05/01/2018, was doing well, having formed bowel movements until the morning of admission on 05/04/2018, re-presented with a white count of 12, fever to 103 degrees. Renal function was normal. Hemoglobin 8.7, white count of 16, bilirubin slightly elevated. The patient was admitted, had blood cultures, treated with intravenous antibiotics and fluids. There were some inflammatory changes in the right pelvis and upper abdomen. He had had a previous CT-guided drainage of a right pelvic collection that proved to be just hematoma and there was never any growth from this. Repeat CAT scan at this hospitalization however revealed persistent changes. As his fevers persisted, he underwent a CT-guided drainage of this fluid. After this drainage, his fevers resolved. Dr. Hammonds saw him in consultation. He is being discharged home on this occasion with IV antibiotics via the Infusion Center as an outpatient meropenem daily for least 2 weeks, Dr. Hammonds will be following there. During this hospitalization, the patient had complained of indigestion, we thought it was related to dilated proximal small bowel loops and poor GI motility, but further evaluation revealed some apex septal problem of dyskinesia on his echocardiogram and troponins were slightly elevated and Dr. Galloway saw him. He had an echocardiogram, revealing these changes as described. He had diminished ejection fraction of 35% to 40%. Dr. Galloway was concerned that he may have versus an ischemic event. However, echocardiogram also revealed laminated thrombus, he was started on anticoagulation. He was initially thought to have a catheterization at this hospitalization, but this was postponed due to the above events. Dr. Galloway will plan a cardiac catheterization in the future. The patient convalesced, tolerated his diet, his wound VAC in his wound was removed. He was sent home with normal saline, wet-to-dry dressing, wash the wound with soap and water in the bath or shower every day to three and normal saline wet-to-dry dressing, a separate dressing applied. He will follow up in my office in 2 to 3 weeks. He will avoid lifting over 25 pounds for six weeks. He was sent home with the above intravenous antibiotics infusion, outpatient wound care. 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 He was not requiring any pain medications on discharge. However, he was given Ultram p.r.n. pain. He will take Tylenol and Motrin p.r.n. pain. Job ID: [id number]
== END 2018-05-13 19:14 | disposition home or self-care (01) | DRG 862 ==
LOC: ERS 13:54 → ERHOLD 18:28 → OBSVTOIN 18:28 → 2SW 22:26 → 2NO 05-09 10:33
PROVIDERS: ADMIT Specialist; ATTEND Specialist
PROC: 0W9G30Z Drainage of Peritoneal Cavity with Drainage Device, Percutaneous Approach (ICD-10-PCS; 2018-05-07)
PROC: 02HV33Z Insertion of Infusion Device into Superior Vena Cava, Percutaneous Approach (ICD-10-PCS; principal; 2018-05-12)
DX: T81.43XA Infection following a procedure, organ and space surgical site, initial encounter (principal); K65.1 Peritoneal abscess; C19 Malignant neoplasm of rectosigmoid junction; I97.191 Other postprocedural cardiac functional disturbances following other surgery; I47.1 Supraventricular tachycardia; I82.890 Acute embolism and thrombosis of other specified veins; I42.0 Dilated cardiomyopathy; B19.20 Unspecified viral hepatitis C without hepatic coma; I10 Essential (primary) hypertension; K21.9 Gastro-esophageal reflux disease without esophagitis; D53.9 Nutritional anemia, unspecified
CPT/HCPCS: 36415; 36569; 49020; 71046; 74018; 74177; 76705; 77002; 80048; 80053; 80202; 81003; 81015; 82553; 82565; 83605; 83690; 83880; 84484; 85014; 85018; 85025; 85049; 85060; 87040; 87070; 87076; 87086; 87205; 87804; 89051; 93005; 93306; 93798; 97602; A4218; C1729; C1751; C9113; J0692; J1450; J1644; J1650; J1940; J2185; J2248; J2250; J2405; J2543; J2765; J3010; J3370; J7050; Q0162

== ENCOUNTER 2018-05-16 10:28 | Outpatient (CLI) | payer SELFPAY ==
[2018-05-16] MEDS ORDERED: Lidocaine 2% PF 100 mg/5 ml Syringe ONE (11:11)
[2018-05-16] MEDS ORDERED: Sodium Chloride 0.9% 15 ML NEB ONE (11:11)
--- NOTE | 2018-05-16 20:33 | HP ---
HISTORY OF PRESENT ILLNESS: Mr. Axel Keenan is a very pleasant 58-year-old gentleman, who presents to the [facility] for evaluation of two wounds of the abdomen in the midline subsequent to surgery on 04/12/2018, specifically ileocolic resection with reanastomosis. Previously, the patient had undergone on 04/06/2018, laparoscopic right colectomy and sigmoid resection also by Dr. Alhaji Wilburn. Negative pressure therapy for the midline abdominal wound was initiated on 04/12/2018 intraoperatively. Negative pressure therapy was discontinued by Dr. Wilburn and the patient is now receiving wet-to-dry dressing changes as instructed. PAST MEDICAL HISTORY: 1. Low back pain. 2. Gastroesophageal reflux disease. 3. Hepatitis C. 4. Hypertension. 5. COPD. 6. Colon carcinoma. PAST SURGICAL HISTORY: 1. Right upper extremity surgery. 2. Right inguinal hernia repair with mesh. 3. Laparoscopic right colectomy and sigmoid resection. 4. Ileocolic resection with reanastomosis. MEDICATIONS: 1. Eliquis. 2. Coreg. 3. Zestril. 4. Hydrochlorothiazide. 5. Lisinopril. 6. Omeprazole. 7. MiraLax. 8. Motrin. 9. Tylenol. 10. Ultram. ALLERGIES: NO KNOWN DIAGNOSED ALLERGIES. SOCIAL HISTORY: Social history is negative for current tobacco or EtOH use. FAMILY HISTORY: Family history significant for diabetes mellitus and coronary artery disease. The patient states that his mother was diagnosed with both diabetes mellitus and coronary artery disease. PHYSICAL EXAMINATION: VITAL SIGNS: Temperature 98.1, pulse 89, respirations 18, blood pressure 137/90. GENERAL: A 58-year-old gentleman, sitting on chair in examination room, in no acute distress. HEENT: Normocephalic and atraumatic. NECK: No nuchal rigidity. CHEST: Clear to auscultation. CV: Regular rate and rhythm. ABDOMEN: Soft. Two midline abdominal wounds are present, which measured approximately 7.0 x 2.8 cm and 2.0 x 1.6 cm. Granulation tissue is present within the margins of each wound. No purulent drainage is associated with either wound. No erythema of the skin surrounding either wound is present. No maceration of the skin of the periwound of either wound is noted. EXTREMITIES: No clubbing or cyanosis. NEURO: Grossly nonfocal. ASSESSMENT AND PLAN: 1. Two midline abdominal wounds as described above. Wet-to-dry dressing changes as per Dr. Wilburn will be continued. The patient states he has a followup appointment with Dr. Wilburn later this week. I will see Mr. Keenan again in 2 to 3 weeks. No antibiotics will be prescribed today based upon the appearance of the wound. 2. Low back pain. 3. Gastroesophageal reflux disease. 4. Hepatitis C. 5. Hypertension. 6. Chronic obstructive pulmonary disease. 7. Colon carcinoma. Job ID: [id number]
== END 2018-05-16 10:29 | disposition home or self-care (01) ==
LOC: WCC 10:28
PROVIDERS: ATTEND Family Medicine
DX: T81.89XD Other complications of procedures, not elsewhere classified, subsequent encounter (principal); M54.5 Low back pain; K21.9 Gastro-esophageal reflux disease without esophagitis; I10 Essential (primary) hypertension; J44.9 Chronic obstructive pulmonary disease, unspecified; B19.20 Unspecified viral hepatitis C without hepatic coma; C18.9 Malignant neoplasm of colon, unspecified
CPT/HCPCS: 97602; 99203; A4218; G0463; J2001

== ENCOUNTER 2018-05-19 07:34 | Outpatient (CLI) | payer OTHER ==
--- NOTE | 2018-05-19 09:32 | CT ---
CT ABDOMEN AND PELVIS WITH IV CONTRAST: Technique: Multiple contiguous axial images were obtained through the abdomen and pelvis with IV enha ncement. Oral contrast was administered. Indications: Follow up abdominal abscess. Partial colectomy in March with subsequent abscess and d rainage catheter placement. Comparison: 05-04-18, 05-07-18 FINDINGS: Small left effusion has developed. There is left basilar atelectasis. Liver, spleen, and pancreas remain unremarkable. There continues to be abnormal haziness and stranding in the mesenteric fat of the left upper abdomen , unchanged in appearance from 05-04-18. Fat necrosis or infection remain considerations. There is a circumscribed heterogeneous area of fat and soft tissue density in the right abdomen with tiny extraluminal gas pockets which is again seen. The internal soft tissue components have decreased . The overall size of this mass density has also decreased. The craniocaudal dimension today is measu red at 7.5 cm. It was previously measured at 10.5 cm craniocaudal dimension. This was previously desc ribed as an area of possibly infected fat necrosis. The indwelling drainage catheter remains in place with tip in the anterior right lower quadrant. Ther e is some surrounding density surrounding the pigtail, however, no fluid density or evidence of recur rent abscess is seen. Review of the kidneys shows new cortical lucency today in the peripheral right kidney. This has some kind of a wedge shaped appearance and could represent developing cortical infarct or focal pyelonephr itis. This is a new finding. Review of the left kidney also shows abnormal areas of cortical lucency which are seen in the anterio r left renal cortex and the lateral left renal cortex again suggesting focal areas of pyelonephritis or developing cortical infarcts. The left renal cyst noted previously is unchanged. Small bowel loops show nonspecific distention without dilatation. Left colon appears unremarkable. Ao rta normal caliber. IMPRESSION: 1. New findings of cortical lucency in both kidneys today may represent focal areas of pyelonephritis or developing cortical infarcts given their wedge shaded appearance. 2. Haziness and stranding in the mesenteric fat of the left upper abdomen is unchanged suggesting fat necrosis. 3. The mass like circumscribed heterogeneous fat density in the right upper quadrant with extrarenal gas pockets has decreased in size when compared to the prior exam. 4. Drainage catheter has the pigtail in the anterior right lower quadrant. No evidence of residual or recurrent abscess or fluid collection. 5. Small left pleural effusion has developed. POS: [facility]
== END 2018-05-19 07:35 | disposition home or self-care (01) ==
LOC: BICCT 07:34
PROVIDERS: ATTEND Specialist
DX: K65.1 Peritoneal abscess (principal); N28.89 Other specified disorders of kidney and ureter; J90 Pleural effusion, not elsewhere classified; Z96.0 Presence of urogenital implants
CPT/HCPCS: 74177

== ENCOUNTER 2018-07-03 07:51 | Emergency (ER) | payer OTHER ==
[2018-07-03] MEDS ORDERED: Ondansetron PF 4 MG/2 ML Vial ONE (08:10)
[2018-07-03] MEDS ORDERED: Morphine 4 MG/ML VIAL ONE ×2 (08:10→09:07)
[2018-07-03 08:20] LABS: #Basophils 0.1 thou/uL (0.0-0.2); #Eosinphils 0.1 thou/uL (0.0-0.7); #Monocytes 0.7 thou/uL (0.11-0.59); #Neutrophils 8.3 thou/uL (1.40-6.50); %Basophils 0.5 % (0.0-1.0); %Eosinophils 0.9 % (0.0-10.0); %Lymphocytes 30.6 % (21.0-51.0); %Monocytes 5.2 % (0.0-10.0); %Neutrophils 62.8 % (42.0-75.0); Hemoglobin 12.4 g/dL (14.0-18.0); Mean Corpuscular HGB CONC 30.2 g/dL (32.0-36.0); Mean Corpuscular Hemoglobin 24.4 pg (27.0-31.0); Mean Corpuscular Volume 80.9 fL (78.0-98.0); Mean Platelet Volume 9.9 fL (7.4-10.4); Platelet Count 234 thou/uL (130-400); RBC Distribution Width 18.1 % (11.5-14.5); Red Blood Cell (RBC) Count 5.06 mill/uL (4.70-6.10); White Blood Cell (WBC) Count 13.1 thou/uL (4.8-10.8)
[2018-07-03] MEDS ORDERED: Mag-Al 1200 mg/1200 mg/30 ML UDCUP ONE (09:07)
[2018-07-03] MEDS ORDERED: Lidocaine Viscous Sol 2% 15 ml UD Cup ONE (09:07)
--- NOTE | 2018-07-03 09:16 | CT ---
ABDOMEN CT WITH CONTRAST PELVIC CT WITH CONTRAST: COMPARISON: 05/19/2018. HISTORY: Congestive heart failure. Colon cancer. Diarrhea and vomiting. FINDINGS: ABDOMEN CT: Scar and atelectasis in the lung bases. Heart size is normal. No pericardial effusion. The descend ing thoracic aorta and abdominal aorta have a normal caliber. No periaortic fat stranding. Patent portal vein. Unremarkable gallbladder. Liver, spleen, pancreas, and adrenal glands have appropriate enhancement and attenuation. Redemonstration of a hypodensity emanating from the left renal cortex with attenuation coefficient of 8 Hounsfield units, compatible with a 2 cm cyst. Bilaterally, no obstructive uropathy. There are enlarged periportal lymph nodes, measuring 1.9 x 1.3 and 1.2 x 1.5 cm. There is stable str anding of the abdominal mesentery likely due to omental seating. Stable postoperative changes of the alimentary canal. No evidence of bowel obstruction. There does appear to be mucosal thickening inv olving the splenic flexure. There is no evidence of a mesenteric mass, free air, or free fluid. No evidence of abscess. CT PELVIS: Unremarkable urinary bladder. No pelvic mass, free air, or free fluid. No lytic or blastic lesions in the osseous structures. IMPRESSION: 1. Persistent hazy opacification of the mesentery which may represent omental seeding. Components o f edema cannot be entirely excluded. 2. Enlarged periportal lymph nodes. 3. No evidence of bowel obstruction. Stable postsurgical changes. 4. Nonspecific mild mucosal prominence and bowel wall prominence involving the splenic flexure. Inf ectious or inflammatory process should be considered. Residual neoplastic process cannot be excluded . POS: [facility]
[2018-07-03 09:33] LABS: Chloride 105 mmol/L (98-107); Potassium 3.8 mmol/L (3.5-5.1)
[2018-07-03 09:34] LABS: Calcium 9.9 mg/dL (7.8-10.44); Sodium 136 mmol/L (136-145)
[2018-07-03 09:35] LABS: Globulin 4.1 g/dL (2.4-3.5); Glucose 157 mg/dL (70-105); Protein, Total 8.1 g/dL (6.0-8.3)
[2018-07-03 09:36] LABS: Anion Gap 12 mmol/L (10-20); Carbon Dioxide 23 mmol/L (22-29)
[2018-07-03 09:37] LABS: Bilirubin, Total 0.4 mg/dL (0.2-1.2)
[2018-07-03 09:38] LABS: Alkaline Phosphatase 69 U/L (40-150); Calc. Creatinine Clearance 0 mL/min (70-130); Estimated GFR-MDRD Greater than 90
[2018-07-03 09:39] LABS: BUN (Urea Nitrogen) 11 mg/dL (8.4-25.7)
[2018-07-03 09:40] LABS: AST (SGOT) 16 U/L (5-34)
[2018-07-03 09:41] LABS: ALT (SGPT) 27 U/L (8-55); Lipase 69 U/L (8-78)
--- NOTE | 2018-07-03 10:31 | RAD ---
TWO VIEWS OF THE CHEST: DATE: 07/03/2018. COMPARISON: 05/04/2018. HISTORY: Abdominal pain. FINDINGS: There is mild increased linear interstitial density, stable. Heart and mediastinal contours are unch anged. No pneumothorax, pleural fluid, focal consolidation or alveolar edema. IMPRESSION: No acute findings. POS: [facility]
[2018-07-03] MEDS ORDERED: ISOVUE-370 76%-LOCM 1 ML ONE (16:55)
== END 2018-07-03 10:27 | disposition home or self-care (01) ==
LOC: ERS 07:51
DX: R10.12 Left upper quadrant pain (principal); R11.2 Nausea with vomiting, unspecified; R19.7 Diarrhea, unspecified; I11.0 Hypertensive heart disease with heart failure; I50.9 Heart failure, unspecified; Z79.899 Other long term (current) drug therapy
CPT/HCPCS: 36415; 71046; 74177; 80053; 83605; 83690; 83880; 84484; 85025; 93005; 96374; 96375; 96376; J2270; J2405; Q9966

== ENCOUNTER 2018-08-31 01:26 | Outpatient (CLI) | payer OTHER ==
[2018-08-31 09:14] LABS: #Eosinphils 0.2 thou/uL (0.0-0.7); #Lymphocytes 3.3 thou/uL (1.20-3.40); #Monocytes 0.5 thou/uL (0.11-0.59); #Neutrophils 2.9 thou/uL (1.40-6.50); %Basophils 0.3 % (0.0-1.0); %Eosinophils 2.7 % (0.0-10.0); %Monocytes 7.5 % (0.0-10.0); %Neutrophils 41.4 % (42.0-75.0); Hemoglobin 13.6 g/dL (14.0-18.0); Mean Corpuscular HGB CONC 31.9 g/dL (32.0-36.0); Mean Corpuscular Hemoglobin 27.2 pg (27.0-31.0); Mean Corpuscular Volume 85.2 fL (78.0-98.0); Mean Platelet Volume 10.2 fL (7.4-10.4); Platelet Count 184 thou/uL (130-400); RBC Distribution Width 19.7 % (11.5-14.5)
[2018-08-31 09:19] LABS: INR-International Normal Ratio 1.1; PTT 30.4 SEC (22.9-36.1)
[2018-08-31 09:37] LABS: ALT (SGPT) 20 U/L (8-55); AST (SGOT) 22 U/L (5-34); Albumin 3.9 g/dL (3.5-5.0); Alkaline Phosphatase 62 U/L (40-150); Anion Gap 11 mmol/L (10-20); BUN (Urea Nitrogen) 11 mg/dL (8.4-25.7); Bilirubin, Total 0.5 mg/dL (0.2-1.2); Calc. Creatinine Clearance 0 mL/min (70-130); Calcium 9.6 mg/dL (7.8-10.44); Carbon Dioxide 23 mmol/L (22-29); Chloride 108 mmol/L (98-107); Estimated GFR-MDRD Greater than 90; Globulin 3.9 g/dL (2.4-3.5); Glucose 93 mg/dL (70-105); Potassium 4.4 mmol/L (3.5-5.1); Protein, Total 7.8 g/dL (6.0-8.3); Sodium 138 mmol/L (136-145)
== END 2018-08-31 01:27 | disposition home or self-care (01) ==
LOC: LABBT 01:26
PROVIDERS: ATTEND Internal Medicine Cardiovascular Disease
DX: Z01.812 Encounter for preprocedural laboratory examination (principal); I42.0 Dilated cardiomyopathy
CPT/HCPCS: 80053; 85025; 85610; 85730

== ENCOUNTER 2018-09-02 06:15 | Day surgery (SDC) | payer OTHER ==
[2018-08-31 08:31] VITALS: BMI 30.1
[2018-09-02] MEDS ORDERED: Midazolam HCl 2 mg/2 ml Vial ONE (07:52)
[2018-09-02] MEDS ORDERED: Fentanyl 100 MCG/2 ML VIAL ONE (07:53)
[2018-09-02 08:33] LABS: Cardiac Risk 4.9 (Less than 4.5)
[2018-09-02] MEDS ORDERED: Iopamidol 370 76% 100 ML VIAL ONE (08:42)
== END 2018-09-02 12:20 | disposition home or self-care (01) ==
LOC: CCL 06:15
PROVIDERS: ATTEND Internal Medicine Cardiovascular Disease
PROC: 4A023N7 Measurement of Cardiac Sampling and Pressure, Left Heart, Percutaneous Approach (ICD-10-PCS; principal; 2018-09-02)
PROC: B2111ZZ Fluoroscopy of Multiple Coronary Arteries using Low Osmolar Contrast (ICD-10-PCS; principal; 2018-09-02)
DX: I42.8 Other cardiomyopathies (principal); I10 Essential (primary) hypertension; J98.9 Respiratory disorder, unspecified
CPT/HCPCS: 36415; 80061; 93458; 99152; C1769; J1644; J2250; J3010; Q9967

== ENCOUNTER 2018-09-19 14:59 | Emergency (ER) | payer OTHER | END 2018-09-19 15:56 | disposition home or self-care (01) | LOC: SCSER 14:59 | DX: H60.501 Unspecified acute noninfective otitis externa, right ear (principal); I11.0 Hypertensive heart disease with heart failure; I50.9 Heart failure, unspecified; Z79.899 Other long term (current) drug therapy; Z79.891 Long term (current) use of opiate analgesic | CPT/HCPCS: 99282 ==

== ENCOUNTER 2018-09-20 07:12 | Outpatient (CLI) | payer OTHER ==
--- NOTE | 2018-09-20 08:27 | CT ---
CT ABDOMEN AND PELVIS WITH ORAL AND IV CONTRAST: HISTORY: Colon cancer. Status post colonic resection. Open wound COMPARISON: 07/03/2018 FINDINGS: The lung bases are clear. No calcified gallstones are seen. The Left renal cyst is stable. The liver, spleen, pancreas, adrenal glands and right kidney are normal. Omental nodularity and hazy mesenteric opacification is again seen. Enlarged periportal and portacava l lymph nodes are stable. No ascites is seen. There are vascular calcifications without evidence of abnormal dilatation of the abdominal aorta. There are degenerative changes in the spine. No osteolyti c or osteoblastic lesions are seen. IMPRESSION: Persistent omental seeding and stable lymphadenopathy in the periportal/portacaval lymph nodes since 07/03/2018.
[2018-09-20] MEDS ORDERED: ISOVUE-370 76%-LOCM 1 ML ONE (08:34)
== END 2018-09-20 07:13 | disposition home or self-care (01) ==
LOC: BICCT 07:12
PROVIDERS: ATTEND Specialist
DX: S31.109D Unspecified open wound of abdominal wall, unspecified quadrant without penetration into peritoneal cavity, subsequent encounter (principal); Z90.49 Acquired absence of other specified parts of digestive tract; R59.0 Localized enlarged lymph nodes
CPT/HCPCS: 74177; Q9966

== ENCOUNTER 2018-11-17 08:20 | Outpatient (CLI) | payer OTHER ==
--- NOTE | 2018-11-17 12:32 | MRI ---
MRI OF THE RIGHT SHOULDER WITHOUT CONTRAST: INDICATION: History of rotator cuff tear. COMPARISON: None. FINDINGS: There is mild tendinosis of the supraspinatus and infraspinatus. The biceps tendon is located. Ther e is some mild degenerative intrasubstance signal within the biceps anchor and superior glenoid labru m. There is a small suspected paralabral cyst seen adjacent to the superior glenoid labrum measuring 3.5 mm. Motion artifact heavily limits image detail on the exam. There is mild to moderate AC join t osteoarthrosis. No muscular atrophy is evident. Glenohumeral articular surface appears relatively well maintained. Anterior inferior glenohumeral labral ligamentous complex appears intact. IMPRESSION: 1. Abnormal signal with a suspected paralabral cyst adjacent to the superior labrum suspicious for a type II superior labrum anterior to posterior tear. Recommend consideration for a repeat MR arthrog cecil of the right shoulder for improved delineation. Motion artifact slightly limits image detail on the current exam. 2. No full-thickness rotator cuff tear demonstrated. 3. Mild tendinosis of the supraspinatus and infraspinatus. 4. Mild acromioclavicular joint osteoarthrosis. POS: CET
--- NOTE | 2018-11-17 14:50 | MRI ---
MRI RIGHT WRIST WITHOUT CONTRAST: INDICATIONS: Concern for TFC injury. COMPARISON: Radiograph of the right wrist, dated 10/18/2018. FINDINGS: There is prominent motion artifact that degrades image quality. There is healed dorsally angulated fracture deformity involving the distal radial metaphysis. There is severe radial carpal osteoarthrosis. The visualized aspects of the dorsal scapholunate and lunotr iquetral ligaments appear intact. There is prominent degenerative subchondral cyst-like abnormalitie s involving the proximal scaphoid and distal radial articular surface. There is prominent degenerative signal seen diffusely throughout the TFC with a horizontally oriented tear. The peripheral attachments, particularly the styloid attachment, is not well seen. The fovea l attachment is likely in place. The visualized aspects of the volar and distal radial ulnar ligamen ts are likely intact. The extrinsic ligaments are not well delineated. The volar extrinsic ligament s do appear to be intact. The carpal tunnel and its contents appear within normal limits. The FCR and FCU tendons are intact. Extensor tendons appear intact without evidence of active tenosynovitis. Ulnar neurovascular appear s within normal limits. IMPRESSION: 1. Severe osteoarthrosis of the radial scaphoid and radiolunate articulation, likely posttraumatic i n nature. There is prominent healed dorsal angulation of the distal radial metaphysis, related to pr ior trauma. 2. Prominent degenerative tearing of the triangular fibrocartilage complex with a predominant horizo ntal component extending through the body. There is likely a tear involving the styloid peripheral a ttachment. POS: CET
== END 2018-11-17 08:21 | disposition home or self-care (01) ==
LOC: BICMRI 08:20
PROVIDERS: ATTEND Orthopaedic Surgery Hand Surgery
DX: S63.591A Other specified sprain of right wrist, initial encounter (principal); M75.101 Unspecified rotator cuff tear or rupture of right shoulder, not specified as traumatic; M87.039 Idiopathic aseptic necrosis of unspecified carpus; M19.031 Primary osteoarthritis, right wrist; M19.011 Primary osteoarthritis, right shoulder; M75.81 Other shoulder lesions, right shoulder

== ENCOUNTER 2019-03-03 09:58 | Outpatient (CLI) | payer OTHER ==
[2019-03-03 11:05] LABS: Hemoglobin 14.5 g/dL (14.0-18.0); Mean Corpuscular HGB CONC 34.3 g/dL (32.0-36.0); Mean Corpuscular Hemoglobin 31.8 pg (27.0-31.0); Mean Corpuscular Volume 92.7 fL (78.0-98.0); Mean Platelet Volume 8.5 fL (7.4-10.4); Platelet Count 139 thou/uL (130-400); Red Blood Cell (RBC) Count 4.55 mill/uL (4.70-6.10)
[2019-03-03 11:12] LABS: INR-International Normal Ratio 1.2; PTT 28.6 SEC (22.9-36.1); Prothrombin Time 15.4 SEC (12.0-14.7)
[2019-03-03 11:25] LABS: Anion Gap 10 mmol/L (10-20); BUN (Urea Nitrogen) 9 mg/dL (8.4-25.7); Calc. Creatinine Clearance 0 mL/min (70-130); Calcium 9.1 mg/dL (7.8-10.44); Carbon Dioxide 24 mmol/L (22-29); Chloride 108 mmol/L (98-107); Estimated GFR-MDRD Greater than 90; Glucose 108 mg/dL (70-105); Potassium 3.9 mmol/L (3.5-5.1); Sodium 138 mmol/L (136-145)
== END 2019-03-03 09:59 | disposition home or self-care (01) ==
LOC: LABBT 09:58 → EDSTATUS 10:15
PROVIDERS: ATTEND Internal Medicine Cardiovascular Disease
DX: Z01.812 Encounter for preprocedural laboratory examination (principal); I50.9 Heart failure, unspecified
CPT/HCPCS: 80048; 85027; 85610; 85730

== ENCOUNTER 2019-03-06 10:50 | Day surgery (SDC) | payer OTHER ==
[2019-03-03 10:17] VITALS: BMI 31.7
[2019-03-06] MEDS ORDERED: Fentanyl 100 MCG/2 ML VIAL ONE ×2 (16:56→18:19)
[2019-03-06] MEDS ORDERED: Propofol 1,000 MG/100 ML VIAL IV ONE (16:57)
[2019-03-06] MEDS ORDERED: Lidocaine 1% (PF) 30 ML VIAL ONE (17:02)
[2019-03-06] MEDS ORDERED: Phenylephrine HCL 10 MG/ML VIAL ONE (17:31)
--- NOTE | 2019-03-06 18:36 | RAD ---
Chest AP view INDICATION: ICD placement COMPARISON: July 03, 2018 FINDINGS: Lungs:The lungs are clear Cardiac silhouette:The cardiomediastinal silhouette appears within normal limits. Pulmonary vasculature:Normal Pleural spaces:Left costophrenic angle is excluded. Upper abdomen:No abnormality seen. Osseous structures: No acute osseous abnormality. Additional findings:New single lead left-sided AICD. The distal aspect of lead projects beyond the fi eld-of-view. IMPRESSION: Interval placement of a single lead AICD. No pneumothorax. Some limitations to the exam a s above.
== END 2019-03-06 20:20 | disposition home or self-care (01) ==
LOC: CCL 10:50
PROVIDERS: ATTEND Internal Medicine Cardiovascular Disease
PROC: 02HK3KZ Insertion of Defibrillator Lead into Right Ventricle, Percutaneous Approach (ICD-10-PCS; principal; 2019-03-06)
PROC: 0JH608Z Insertion of Defibrillator Generator into Chest Subcutaneous Tissue and Fascia, Open Approach (ICD-10-PCS; principal; 2019-03-06)
DX: I11.0 Hypertensive heart disease with heart failure (principal); I50.22 Chronic systolic (congestive) heart failure; I42.0 Dilated cardiomyopathy; J44.9 Chronic obstructive pulmonary disease, unspecified; Z79.01 Long term (current) use of anticoagulants; Z79.899 Other long term (current) drug therapy
CPT/HCPCS: 33249; 36005; 71045; 75820; J0690; J2001; J2370; J2704; J3010; J3490

== ENCOUNTER 2019-03-21 10:29 | Day surgery (SDC) | payer OTHER ==
[2019-03-20 10:52] VITALS: BMI 31.7
[2019-03-21] MEDS ORDERED: PROPOFOL 200 MG/20 ML VIAL ONE (10:37)
[2019-03-21] MEDS ORDERED: PHENYLEPHRINE-NS 100 MCG/ML 10 ML SYRINGE ONE (10:37)
[2019-03-21] MEDS ORDERED: ePHEDrine/0.9% NaCl/PF SYRINGE 50 mg/10 ml ONE (10:37)
--- NOTE | 2019-03-21 15:16 | OP ---
DATE OF PROCEDURE: 03/21/2019 PROCEDURE PERFORMED: Colonoscopy. PREOPERATIVE DIAGNOSES: 1. Colon cancer surveillance. 2. History of colon cancer, resected in 03/2018, due for surveillance. DESCRIPTION OF PROCEDURE: Informed consent was obtained from the patient. He was sedated with total intravenous anesthesia. The rectal exam was performed and was normal. No anal fissure was identified as a source for his rectal pain. The colonoscope was advanced to the terminal ileum without difficulty. The mucosa of the terminal ileum was normal. There was a healthy-appearing ileocolonic anastomosis. The colonic mucosa was normal throughout. The preparation quality was good. There was a healthy-appearing anastomosis at the rectosigmoid. This was patent and has normal-appearing overlying mucosa. Retroflexed views in the rectum were normal. IMPRESSION: 1. Healthy ileocolonic anastomosis in the transverse colon. 2. Healthy rectosigmoid anastomosis. 3. History of colon cancer status post resection. 4. Otherwise normal colonoscopy to the terminal ileum. RECOMMENDATIONS: Repeat colonoscopy in 3 years for colon cancer surveillance. Job ID: [id number]
== END 2019-03-21 14:25 | disposition home or self-care (01) ==
LOC: SDC 10:29
PROVIDERS: ATTEND Internal Medicine Gastroenterology
PROC: 0DJD8ZZ Inspection of Lower Intestinal Tract, Via Natural or Artificial Opening Endoscopic (ICD-10-PCS; principal; 2019-03-21)
DX: Z12.11 Encounter for screening for malignant neoplasm of colon (principal); I10 Essential (primary) hypertension; K21.9 Gastro-esophageal reflux disease without esophagitis; K76.0 Fatty (change of) liver, not elsewhere classified; Z86.010 Personal history of colon polyps
CPT/HCPCS: J2704

== ENCOUNTER 2019-04-21 06:00 | Day surgery (SDC) | payer OTHER ==
[2019-04-20 14:33] VITALS: BMI 32.0
[2019-04-21] MEDS ORDERED: Ketorolac Tromethamine 30 MG/ML VIAL ONE (06:15)
[2019-04-21] MEDS ORDERED: Fentanyl 100 MCG/2 ML VIAL ONE ×3 (06:29→10:59)
[2019-04-21] MEDS ORDERED: Midazolam HCl 2 mg/2 ml Vial ONE ×2 (06:29→06:56)
[2019-04-21 06:45] LABS: Hemoglobin 14.9 g/dL (14.0-18.0); Mean Corpuscular HGB CONC 33.4 g/dL (32.0-36.0); Mean Corpuscular Hemoglobin 30.7 pg (27.0-31.0); Mean Corpuscular Volume 92.2 fL (78.0-98.0); Mean Platelet Volume 8.3 fL (7.4-10.4); Platelet Count 152 thou/uL (130-400); RBC Distribution Width 11.9 % (11.5-14.5); Red Blood Cell (RBC) Count 4.84 mill/uL (4.70-6.10); White Blood Cell (WBC) Count 7.4 thou/uL (4.8-10.8)
[2019-04-21 06:54] LABS: Lymphocytes 49 % (21-51); MDiff Complete? YES; Monocytes 7 % (0-10); Neutrophil 44 % (42-75); Platelet Morphology Comment Appears Adequate
[2019-04-21] MEDS ORDERED: Bupivacaine 0.25% HCL 30 ML VIAL ONE (06:55)
[2019-04-21] MEDS ORDERED: Fentanyl 250 MCG/5 ML VIAL ONE (06:56)
[2019-04-21 07:09] LABS: Anion Gap 11 mmol/L (10-20); BUN (Urea Nitrogen) 12 mg/dL (8.4-25.7); Calc. Creatinine Clearance 132 mL/min (70-130); Calcium 9.5 mg/dL (7.8-10.44); Carbon Dioxide 24 mmol/L (22-29); Chloride 109 mmol/L (98-107); Estimated GFR-MDRD Greater than 90; Glucose 133 mg/dL (70-105); Potassium 3.8 mmol/L (3.5-5.1); Sodium 140 mmol/L (136-145)
[2019-04-21] MEDS ORDERED: HYDROmorphone 0.5 MG/0.5 ML SYRINGE ONE (07:11)
[2019-04-21] MEDS ORDERED: SUGAMMADEX SODIUM 200 MG/2 ML VIAL ONE (07:12)
--- NOTE | 2019-04-21 12:00 | OP ---
DATE OF PROCEDURE: 04/21/2019 PREOPERATIVE DIAGNOSIS: Incisional hernia, midline upper abdomen between the umbilicus and the xiphoid. POSTOPERATIVE DIAGNOSIS: Incisional hernia, midline upper abdomen between the umbilicus and the xiphoid, with adhesions. PROCEDURES PERFORMED: Robot laparoscopic lysis of adhesions; repair of incisional hernia, reinforcement with Ventralight ST mesh, 15 x 10 cm. ANESTHESIA: General, TAP block. INDICATIONS FOR PROCEDURE: The patient had undergone a laparoscopic right and sigmoid colon resection and postoperatively developed ischemic segment in the transverse colon necessitating open upper incision requiring revision of the ileocolic anastomosis and developed postoperative incisional hernia in the upper midline incision. DESCRIPTION OF PROCEDURE: The patient was taken to the operating room, where under general anesthesia, De La Garza catheter was placed at the beginning of the procedure and removed at the end. Abdomen was prepared with ChloraPrep and draped in routine fashion. Left lateral subcostal incision was made. Pneumoperitoneum to 15 mmHg was obtained with a Veress needle, replaced with a 5 port, and laparoscope was inserted. There was noted to be an adhesion-free area on the left abdomen and inferiorly, and inferiorly, an incision was made, and an 8 mm port was placed. Left lower quadrant lateral incision was made, and an 11 port was placed, balloon port for the camera. A left subcostal lateral incision was made, and an 8 mm port was placed. Robot was docked and positioned, and robot incisional hernia was undertaken. There were a fascial defect in the upper midline as described and a smaller defect in the right lateral subcostal. Adhesiolysis was carried out freeing the falciform ligament using the hot scissor dissection and careful dissection, sharp and blunt, to free adhesions, mostly omental, from the anterior abdominal wall. The hernia defect was identified and was noted to be about 5 cm in diameter. Pneumoperitoneum was reduced to 9 mmHg, and continuous suture of #1 V-Loc suture was used to close this hernia defect transversely. The smaller defect was closed with 0 V-Loc suture. At this point, the Ventralight mesh was inserted and positioned, and the viscerally-coated side was placed against the viscera as the mesh was held in place with the previously used needles. The mesh was secured to the abdominal wall with continuous suture of #2-0 V-Loc suture. Once this was accomplished, sutures were cut. All needles were removed. Good hernia repair was appreciated. Pneumoperitoneum was reduced. All instruments were removed, and all skin incisions were approximated with interrupted subdermal 4-0 Monocryl, and Seaforth glue was applied. Job ID: [id number]
[2019-04-21] MEDS ORDERED: Ondansetron PF 4 MG/2 ML Vial ONE (12:28)
[2019-04-21] MEDS ORDERED: Dexamethasone 20 MG/5 ML VIAL ONE (12:28)
[2019-04-21] MEDS ORDERED: PHENYLEPHRINE-NS 100 MCG/ML 10 ML SYRINGE ONE (12:28)
[2019-04-21] MEDS ORDERED: Rocuronium Bromide 10 MG/ML (10ML VIAL) ONE (12:28)
[2019-04-21] MEDS ORDERED: PROPOFOL 200 MG/20 ML VIAL ONE (12:28)
[2019-04-21] MEDS ORDERED: Bupivacaine HCl 0.5%/Epinephrine 1:200,000/PF 30 ml Vial ONE (12:28)
[2019-04-21] MEDS ORDERED: HYDROcodone/Acetaminophen 5/325 mg Tablet ONE (13:36)
--- NOTE | 2019-04-21 14:09 | HP ---
HISTORY OF PRESENT ILLNESS: Axel Keenan, 58-year-old male patient, with an incisional hernia between the umbilicus and xiphoid. Plan is for robot repair. Mesh will be used. He understands the risks and benefits, consents. The patient on 04/06/2018 underwent a laparoscopic right colectomy with laparoscopic mobilization of the splenic flexure, laparoscopic sigmoid resection with 33 mm EEA stapler, checked under water without leaks for a hepatic flexure and distal descending colon tubular adenoma polyp, unresectable sessile, rectosigmoid adenocarcinoma on biopsy. Pathology revealed on the right colon no residual lesion, margins were free. Sigmoid colon, incidental hyperplastic polyp. No residual cancer. On 04/12/2018, the patient developed a leak and underwent laparotomy, abdominal washout, and ileocolic resection with reanastomosis. Seprafilm applied. Subsequently on 03/21/2019, Dr. Tong performed a colonoscopy revealing healthy colon without problems. ALLERGIES: NONE. PAST MEDICAL HISTORY: Hepatitis C, hypertension, rectosigmoid adenocarcinoma with a tubulovillous adenoma with cancer at the margins undergoing laparoscopic sigmoid resection without residual disease as well as unresectable polyp at the hepatic flexure, undergoing laparoscopic right colectomy with redo-anastomosis after postoperatively developed. History of hypertension and GERD. SOCIAL HISTORY: Tobacco, none. Alcohol, none. The patient is unemployed and is disabled. MEDICATIONS: 1. Lisinopril 40 mg a day. 2. Hydrochlorothiazide daily. PHYSICAL EXAMINATION: VITAL SIGNS: 259 pounds, 73 inches, 135/74, 94, 96.8 degrees. HEAD, EARS, EYES, NOSE AND THROAT: Unremarkable. LUNGS: Clear to auscultation. CARDIAC: Regular rate and rhythm without murmur or gallop. ABDOMEN: Soft and nontender. An incisional hernia above the umbilicus beneath the subxiphoid, about a 3.5 cm defect. EXTREMITIES: Unremarkable. ASSESSMENT: Incisional hernia. PLAN: Robot mesh repair as outpatient. He understands the risks and benefits and consents. Job ID: [id number]
--- NOTE | 2019-05-01 17:13 | EKG ---
Test Reason : PREOP Blood Pressure : / mmHG Vent. Rate : 067 BPM Atrial Rate : 067 BPM P-R Int : 168 ms QRS Dur : 092 ms QT Int : 382 ms P-R-T Axes : 030 038 126 degrees QTc Int : 403 ms Normal sinus rhythm Anterolateral infarct (cited on or before 04-MAY-2018) Abnormal ECG When compared with ECG of 03-JUL-2018 08:33, Nonspecific T wave abnormality no longer evident in Inferior leads Confirmed by RADHA BRIGGS M.D. ([id number]) on 05/01/2019 5:12:55 PM Referred By: NERY Confirmed By:RDAHA BRIGGS M.D.
== END 2019-04-21 14:05 | disposition home or self-care (01) ==
LOC: SDC 06:00
PROVIDERS: ATTEND Specialist
PROC: 0WUF4JZ Supplement Abdominal Wall with Synthetic Substitute, Percutaneous Endoscopic Approach (ICD-10-PCS; principal; 2019-04-21)
DX: K43.2 Incisional hernia without obstruction or gangrene (principal); K66.0 Peritoneal adhesions (postprocedural) (postinfection); K21.9 Gastro-esophageal reflux disease without esophagitis; M19.90 Unspecified osteoarthritis, unspecified site; I10 Essential (primary) hypertension; Z85.038 Personal history of other malignant neoplasm of large intestine; Z86.010 Personal history of colon polyps; Z79.01 Long term (current) use of anticoagulants; Z79.899 Other long term (current) drug therapy; Z90.49 Acquired absence of other specified parts of digestive tract
CPT/HCPCS: 36415; 80048; 85025; 93005; 93010; J0131; J0670; J0690; J1100; J1170; J1885; J2250; J2405; J2704; J3010; S0020

== ENCOUNTER 2020-01-22 13:48 | Outpatient (CLI) | payer OTHER ==
--- NOTE | 2020-01-22 16:42 | CT ---
CT Abdomen Pelvis W Con: 01/22/2020 12:00 AM CLINICAL INFORMATION: Mid to upper abdominal pain; history of colon cancer COMPARISON: 09/20/2018 TECHNIQUE: Multiple contiguous axial images were obtained and a CT of the abdomen and pelvis with IV contrast. Oral contrast was administered. Coronal and sagittal reformats were performed. FINDINGS: Lower Chest: within normal limits. Abdomen: Liver: within normal limits. Bile Ducts: Normal caliber. Gallbladder: No calcified gallstones. Normal caliber wall. Pancreas: within normal limits. Spleen: within normal limits. Adrenals: within normal limits. Kidneys: 2.6 cm left renal cyst Pelvis: Reproductive Organs: No pelvic masses. Ureters: within normal limits. Bladder: within normal limits. Peritoneum: No ascites or free air, no fluid collection. There is thickening of the fat within the an terior omentum just beneath the umbilicus which is new compared to the prior examination. Bowel: Normal caliber. There is an anastomotic staple line in the rectum. The right colon has been re moved. Mesentery and Retroperitoneum: No enlarged mesenteric or retroperitoneal lymph nodes. The previously seen enlarged portal caval lymph nodes are now normal in size. Vessels: Normal. Abdominal Wall: within normal limits. Bones: Degenerative changes in the spine. IMPRESSION: 1. Thickening of the omental fat beneath the umbilicus is concerning for peritoneal carcinomatosis. 2. Left renal cyst
== END 2020-01-22 13:49 | disposition home or self-care (01) ==
LOC: SCSCT 13:48
PROVIDERS: ATTEND Specialist
DX: R10.10 Upper abdominal pain, unspecified (principal); N28.1 Cyst of kidney, acquired; E65 Localized adiposity
CPT/HCPCS: 74177; 82565

== ENCOUNTER 2020-04-21 12:29 | Observation (INO) | payer OTHER, SELFPAY ==
--- NOTE | 2020-04-21 12:55 | RAD ---
XR Chest 1 View Portable HISTORY: Chest pain COMPARISON: 03/06/2019 FINDINGS: The heart size is normal. Left-sided AICD remains in place. The lungs are well expanded wit hout focal areas of consolidation, pneumothorax or pleural effusions. IMPRESSION: No radiographic evidence of acute cardiopulmonary process.
[2020-04-21] MEDS ORDERED: Aspirin Chewable 81 MG TAB ONE (13:24)
[2020-04-21 13:30] LABS: #Basophils 0.1 thou/uL (0.0-0.2); #Eosinphils 0.1 thou/uL (0.0-0.7); #Lymphocytes 3.1 thou/uL (1.20-3.40); #Monocytes 0.5 thou/uL (0.11-0.59); #Neutrophils 2.5 thou/uL (1.40-6.50); %Basophils 1.2 % (0.0-1.0); %Eosinophils 1.5 % (0.0-10.0); %Lymphocytes 49.9 % (21.0-51.0); %Monocytes 7.3 % (0.0-10.0); %Neutrophils 40.1 % (42.0-75.0); Hemoglobin 15.2 g/dL (14.0-18.0); Mean Corpuscular HGB CONC 34.1 g/dL (32.0-36.0); Mean Corpuscular Hemoglobin 31.7 pg (27.0-31.0); Mean Corpuscular Volume 92.9 fL (78.0-98.0); Mean Platelet Volume 8.7 fL (7.4-10.4); Platelet Count 153 thou/uL (130-400); RBC Distribution Width 11.7 % (11.5-14.5); Red Blood Cell (RBC) Count 4.79 mill/uL (4.70-6.10); White Blood Cell (WBC) Count 6.1 thou/uL (4.8-10.8)
[2020-04-21 13:56] LABS: ALT (SGPT) 26 U/L (8-55); AST (SGOT) 19 U/L (5-34); Albumin 4.4 g/dL (3.4-4.8); Alkaline Phosphatase 53 U/L (40-110); Anion Gap 14 mmol/L (10-20); BUN (Urea Nitrogen) 9 mg/dL (8.4-25.7); Bilirubin, Total 0.5 mg/dL (0.2-1.2); CK (CPK) 198 U/L (30-200); Calc. Creatinine Clearance 0 mL/min (70-130); Calcium 9.4 mg/dL (7.8-10.44); Carbon Dioxide 28 mmol/L (23-31); Chloride 103 mmol/L (98-107); Globulin 3.1 g/dL (2.4-3.5); Glucose 108 mg/dL (80-115); Lipase 48 U/L (8-78); Potassium 4.2 mmol/L (3.5-5.1); Protein, Total 7.5 g/dL (5.8-8.1); Sodium 141 mmol/L (136-145)
--- NOTE | 2020-04-21 14:18 | PDOC.FPRHP ---
- History of Present Illness Chief Complaint: L shoulder Pain History of Present Illness: Pt is a 60 y/o M presenting today with L subscapular and pectoralis major pain which started last night. Pt stated that he was watching television when he experienced a sharp pain in these areas which subsequently went away after a few seconds. He slept last night without the pain, however, this AM at [place] he stated that the sharp pain came back but was not substernal in nature. He denied SOB, diaphoresis, N/V, weakness/numbness on one side of his body, facial droop, or slurring of speech. 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 denies: palpitation Gastrointestinal: reports: other (indigestion, sour taste in mouth). denies: nausea, vomiting, diarrhea, constipation, abdominal pain Genitourinary: denies: incontinence, dysuria, polyuria Musculoskeletal: reports: pain, stiffness. denies: tenderness Neurological: denies: numbness, syncope - Vital signs BP: 110/71, MAP: 84, Pulse: 61, Resp: 12 (Non-Labored), Pain: 0, O2 sat: 97 on (Room Air), Time: 04/21/2020 13:00. - Physical Exam Constitutional: NAD, awake, alert and oriented, well developed HEENT: normocephalic and atraumatic, no scleral icterus, grossly normal vision, grossly normal hearing, MMM Neck: supple Chest: other (L pectoralis major muscle TTP) Heart: RRR, normal S1/S2, no murmurs/rubs/gallops, pulses present, no edema Lungs: CTAB, no respiratory distress, good air movement, no rales/rhonchi, no wheezing, no retractions Abdomen: soft, non-tender, bowel sounds present, no masses/distention Musculoskeletal: normal structure, other (Paraspinal tenderness from T4-T9) Neurological: no focal deficit Skin: capillary refill <2 seconds Psychiatric: normal mood and affect, good judgment and insight, intact recent and remote memory FMR H&P: Results - Labs Result Diagrams: 04/21/20 13:18 04/21/20 13:18 Lab results: WBC 6.1 thou/uL (4.8-10.8) 04/21/20 13:18 Hgb 15.2 g/dL (14.0-18.0) 04/21/20 13:18 Hct 44.5 % (42.0-52.0) 04/21/20 13:18 MCV 92.9 fL (78.0-98.0) 04/21/20 13:18 Plt Count 153 thou/uL (130-400) 04/21/20 13:18 Neutrophils % 40.1 % (42.0-75.0) L 04/21/20 13:18 Sodium 141 mmol/L (136-145) 04/21/20 13:18 Potassium 4.2 mmol/L (3.5-5.1) 04/21/20 13:18 Chloride 103 mmol/L (98-107) 04/21/20 13:18 Carbon Dioxide 28 mmol/L (23-31) 04/21/20 13:18 BUN 9 mg/dL (8.4-25.7) 04/21/20 13:18 Creatinine 1.15 mg/dL (0.7-1.3) 04/21/20 13:18 Glucose 108 mg/dL (80-115) 04/21/20 13:18 Calcium 9.4 mg/dL (7.8-10.44) 04/21/20 13:18 Total Bilirubin 0.5 mg/dL (0.2-1.2) 04/21/20 13:18 AST 19 U/L (5-34) 04/21/20 13:18 ALT 26 U/L (8-55) 04/21/20 13:18 Alkaline Phosphatase 53 U/L (40-110) 04/21/20 13:18 Creatine Kinase 198 U/L (30-200) 04/21/20 13:18 B-Natriuretic Peptide 59.5 pg/mL (0-100) 04/21/20 13:18 Serum Total Protein 7.5 g/dL (5.8-8.1) 04/21/20 13:18 Albumin 4.4 g/dL (3.4-4.8) 04/21/20 13:18 Lipase 48 U/L (8-78) 04/21/20 13:18 - EKG Interpretation EKG: Age indeterminate inferior infarct, slight T-wave inversions of aVF and aVL - Radiology Interpretation Chest x-ray Status: image reviewed by me, report reviewed by me (No acute cardiac process.) FMR H&P: A/P - Plan ##Atypical Chest Pain -2/2 most likely to MSK and L shoulder pain due to reproducible nature of pain -Heart Score of 4 -EKG not showing new infarct, however some slight T-wave inversions noted in aVF and aVL -CXR wnl -Initial trop neg, will trend -Risk Stratifying Labs: Lipid Panel, A1C, TSH -Last Cath was on 08/2018 which showed LAD 40% mild stenosis, LVEF 30% -Not currently on statin medication -Will call cardiology (Dr. Galloway's) office in AM to determine whether stress t est is necessary. NPO @ 12AM, Hold BB in case of stress test in AM. -Tylenol prn for pain ##HFrEF s/p AICD -Last ECHO on 05/04/18 showed EF 35-40%, grade 1/3 diastolic dysfunction, also showed akinesis of 4 apical segments -BNP 59 -on entresto, coreg, lasix home meds ##Non-Ischemic Cardiomyopathy -shown on cath from 2019, unsure what this is due to ##Hx of LV Thrombus -currently on eliquis home med ##Hx of NSVT -see on cardiology notes from 05/2018 -aware and will be on telemetry CODE: FULL DIET: HH VTE: home eliquis PCP: Isra Dispo: Admitted to telemetry, observation. Will monitor overnight. NPO @ 12AM. FMR H&P: Upper Level - Plan Date/Time: 04/21/20 1417 I, Katrina Smith, have evaluated this patient and agree with findings/plan as outlined by internet network specialist resident. Pertinent changes/additions are listed here. 60 yo M with PMH HFrEF s/p AICD presents for left shoulder pain and is admitted for atypical chest pain. He reports L sided shoulder and back pain present since last night and increasing in frequency. No aggravating or alleviating factors. No radiation. Pain is sharp, intermittent, lasts 3 seconds and resolves. Present while sitting, laying, etc. No unusual physical activity. Does have mild SOB when pain is intense. No current pain. Given 500mL bolus and ASA in ED PMH reviewed and includes CHF s/p AICD, LV thrombus, hx intraabdominal abscess, hx colon cancer, chronic anemia, HTN, GERD CXR negative VS: 110/71, 61, 19, 97% on RA, 98.3 PE: Gen: NAD HEENT: Moist MM, no LAD Heart: RRR, no murmurs. Pain reproducible on exam to L lower pec and L thoracic paraspinal muscles Lungs: CTAB, no wheezing. No increased work of breathing Abd: soft, nontender, BS+ Ext: no cyanosis or edema Skin: no rashes Psych: AOx3 60 yo M with PMH HFrEF s/p AICD is admitted for atypical chest pain, ACS rule out. Atypical chest pain, likely 2/2 MSK - Heart score 4 - Initial trop neg, continue to trend - EKG with q waves in inferior leads, T wave inversion V2-3. No comparison available - Last cath 08/2018 with 40% stenosis LAD, EF 30%, otherwise no significant CAD and determined to be nonischemic cardiomyopathy - Trend trop, request records from cards office in am, NPO @ [place] HFrEF s/p AICD, not in exacerbation - Last echo 2018 with EF 35-50%, 1/3 diastolic HF - On entresto, carvedilol, lasix daily Hx LV thrombus - On chronic eliquis PCP: KATIE Attending: Rolo Dispo: admit to telemetry for observation, expected LOS <48hrs Addendum - Attending - Attending Attestation Date/Time: 04/21/20 8504 I personally evaluated the patient and discussed the management with Dr. Aaron/Sarah. I agree with the History, Examination, Assessment and Plan documented above with any addition or exceptions noted below. chest pain r/o, low suspicion at the current moment for cardiac pain. Hx of nonischemic cardiomyopathy with AICD in place. Enzyme rule out and will see tomorrow if he has received outpt stress testing in the last 12 months given his history.
[2020-04-21] MEDS ORDERED: Ondansetron ODT 4 MG TAB PO PRN (14:59)
[2020-04-21] MEDS ORDERED: Ondansetron PF 4 MG/2 ML Vial IVP PRN (14:59)
[2020-04-21] MEDS ORDERED: Lidocaine 2% Viscous Solution 10 ML, Aluminum & Magnesium Hydroxide 30 ML SSW SCH (15:15)
[2020-04-21] MEDS ORDERED: Acetaminophen 325 MG TAB PO PRN (15:38)
[2020-04-21 16:33] VITALS: BMI 32.1
[2020-04-21 17:48] LABS: Troponin I 0.011 ng/mL (< 0.028)
[2020-04-21] MEDS: Apixaban 5 MG TAB PO SCH (20:19)
[2020-04-21 20:48] LABS: Troponin I 0.017 ng/mL (< 0.028)
[2020-04-21 23:40] LABS: SARS-CoV-2 MS2 Positive; SARS-CoV-2 N Gene Negative; SARS-CoV-2 S Gene Negative; SARS-CoV-2 by NAA Not Detected (NotDetected); SARS-CoV-2 orf1ab Negative
[2020-04-22 04:51] LABS: Hemoglobin A1c 5.3 % (4.0-6.0)
[2020-04-22 05:07] LABS: Cardiac Risk 5.9 (Less than 4.5)
--- NOTE | 2020-04-22 06:23 | PDOC.FM ---
- Subjective Subjective: Doing well this morning, no concerns. States no recurrence of chest pain/L shoulder pain. No known trauma or increased exercise. Pain lasted about 1 minute yesterday described as sharp pain in shoulder and "squeezing" pain in chest. Mild SOB with pain. No n/v, diaphoresis, dizziness/lightheadedness. Tolerating PO well yesterday. States had cardiac cath in 2019, unsure when last stress test was. - Objective MAR Reviewed: Yes Vital Signs & Weight: Vital Signs (12 hours) Temp Pulse Resp BP BP Pulse Ox 04/22/20 04:00 98.5 F 66 18 95/70 93 L 04/21/20 23:44 98.6 F 61 20 133/86 04/21/20 19:15 98.0 F 62 20 123/76 93 L Weight Weight 116.483 kg Result Diagrams: 04/21/20 13:18 04/21/20 13:18 EKG Reviewed by me: Yes (Tele: NSR) Phys Exam - Physical Examination Constitutional: NAD (resting comfortably) HEENT: PERRLA, moist MMs Neck: no nodes, supple Respiratory: no wheezing, no rales, no rhonchi, clear to auscultation bilateral Cardiovascular: RRR, no significant murmur, no rub Gastrointestinal: soft, non-tender, no distention, positive bowel sounds Musculoskeletal: no edema sternal chest pain reproducible with palpation Neurological: non-focal, normal sensation, moves all 4 limbs Psychiatric: normal affect, A&O x 3 Dx/Plan (1) Atypical chest pain Code(s): R07.89 - OTHER CHEST PAIN Status: Acute - Plan Plan: 60yo M with h/o HFrEF, non-ischemic cardiomyopathy, and h/o NSVT s/p AICD who presents for atypical chest pain/L shoulder pain #Atypical Chest Pain, likely costochondritis -2/2 most likely to MSK and L shoulder pain due to reproducible nature of pain -Heart Score of 4 at admission -EKG at admission without acute infarct, slight T-wave inversions noted in aVF and aVL, no acute events on tele -CXR wnl -Trop neg x3 -A1C, TSH, Lipid panel WNL -Last Cath was on 08/2018 which showed LAD 40% mild stenosis, LVEF 30% -Not currently on statin medication -Will call cardiology (Dr. Galloway's) office this AM to determine whether stress test has been preformed in past year and if not, will obtain this morning. Holding Bb for stress -Tylenol prn for pain #HFrEF s/p AICD -Last ECHO on 05/04/18 showed EF 35-40%, grade 1/3 diastolic dysfunction, jeremy esis of 4 apical segments -BNP 58 at admission -on entresto, coreg, lasix home meds -no s/s of acute exacerbation #Non-Ischemic Cardiomyopathy -shown on cath from 2019 #Hx of LV Thrombus -currently on eliquis home med #Hx of NSVT -aware and will be on telemetry, no acute events CODE: FULL DIET: NPO for possible stress VTE: home eliquis PCP: Isra Dispo: Admitted to telemetry, observation. Contacting primary cardiology office this AM to determine if stress is indicated. Suspect MSK pain in nature. Anticipate discharge today vs tomorrow pending clinical course.
[2020-04-22] MEDS: Apixaban 5 MG TAB PO SCH (08:20)
[2020-04-22] MEDS ORDERED: Furosemide 20 MG TAB PO SCH (09:00)
[2020-04-22] MEDS ORDERED: Carvedilol 6.25 MG TAB PO SCH (09:00)
--- NOTE | 2020-04-22 14:12 | PRG ---
DATE OF SERVICE: 04/22/2020 Mr. Keenan is a 60-year-old man, who presented with some chest and shoulder pain. This is described as sharp in nature, was not associated with diaphoresis or nausea. He had a cardiac cath in 2019 that showed minimal disease, but he is not sure when his last stress test was. He will undergo stress Myoview this afternoon with likely discharge if this is normal. Job ID: [id number]
--- NOTE | 2020-04-22 15:25 | NM ---
NM Cardiac Stress W EF WF History: Chest pain Comparison: Nuclear medicine stress test 2009 Findings: Stress and rest performed after the intravenous administration of 27 and 9.57 mCi technetiu m 99m sestamibi. Large fixed anterior septal and apical defect. No reversible ischemia. Ejection fraction is calculate d at 32% with dyskinesia in the locale of the chronic infarct. Impression: 1. Fixed large anterior, septal, and apical defect with relatively maintained basal perfusion. 2. Low ejection fraction of 32% with dyskinesia of the scarred loci.
[2020-04-22 15:32] VITALS: BP 106/72; TEMP 97.1
--- NOTE | 2020-04-23 15:23 | DIS ---
DATE OF ADMISSION: 04/21/2020 DATE OF DISCHARGE: 04/22/2020 RESIDENT: Jez Russell M.D. ADMITTING ATTENDING: Yamil Collazo M.D. DISCHARGING ATTENDING: Ron Mccullough M.D. CONSULTS: None. PROCEDURES: 1. Chest x-ray on 04/23/2010 demonstrating no acute cardiopulmonary process. 2. Nuclear medicine stress test on 04/22/2020, demonstrating a fixed large anterior septal and apical defect with relatively maintained basal perfusion as well as ejection fraction of 32%. PRIMARY DIAGNOSIS: Atypical chest pain likely costochondritis. SECONDARY DIAGNOSES: 1. Heart failure with reduced ejection fraction, status post AICD. 2. Ischemic cardiomyopathy. 3. History of left ventricular thrombus. 4. History of nonsustained ventricular tachycardia. DISCHARGE MEDICATIONS: 1. Eliquis 5 mg p.o. b.i.d. 2. Entresto 24 mg/26 mg one tablet p.o. b.i.d. 3. Coreg 12.5 mg p.o. b.i.d. 4. Lasix 40 mg p.o. daily. 5. Atorvastatin 20 mg p.o. daily. HISTORY OF PRESENT ILLNESS AND HOSPITAL COURSE: The patient is a 60-year-old male, who presented to the emergency room with left subscapular and chest wall pain that started the night previously. He denied any shortness of breath, diaphoresis, nausea, vomiting, weakness, numbness. The patient reports slurring speech. He sees gear shaver set up operator due to his history of heart failure with reduced ejection fraction and nonischemic cardiomyopathy. In the emergency department, chest pain is reproducible with chest wall palpation. EKG was without acute infarct with slight T-wave inversions in aVF, aVL. Chest x-ray was normal. Troponin negative x3. He is admitted to the floor for further evaluation and management. Per records review, the patient's last cardiac cath was in August 2018, showed LAD 40%, mild stenosis with ejection fraction of 30%. [employer]'s office was contacted and the patient has not had a stress test within the past year. The patient monitored on telemetry without any acute events. He is not having recurrence of symptoms except for reproducibility of his chest wall pain with palpation. The patient was taken for a nuclear medicine stress test with findings per above with no reversible ischemic deficit. The patient remained euvolemic and did not appear as a heart failure exacerbation. His home medications were continued. The above findings were discussed with the patient at bedside with recommendation to follow with his gear shaver set up operator as an outpatient. Home medications were continued. Return precautions given. The patient was started on atorvastatin 20 due to his cardiac history and not being on a statin previously. The patient voiced agreement and understanding of discharge plan. All questions were answered. DISPOSITION: Stable. DISCHARGE INSTRUCTIONS: 1. Location: Home. 2. Diet: Heart healthy. 3. Activity: As tolerated. 4. Followup: The patient should follow up with his gear shaver set up operator in 1 week of discharge. The patient is to follow up with his primary care physician within 1 to 2 weeks of discharge. Job ID: [id number]
--- NOTE | 2020-04-27 16:12 | EKG ---
Test Reason : Blood Pressure : / mmHG Vent. Rate : 063 BPM Atrial Rate : 063 BPM P-R Int : 166 ms QRS Dur : 084 ms QT Int : 390 ms P-R-T Axes : 051 066 091 degrees QTc Int : 399 ms Normal sinus rhythm Cannot rule out Inferior infarct , age undetermined Anterolateral infarct , age undetermined Abnormal ECG Confirmed by CHINA MUÑOZ, ALEC ([id number]), editor in chief JASSON THOMAS ([id number]) on 04/27/2020 4:12:12 PM Referred By: Confirmed By:ALEC TAKINSON MD
== END 2020-04-22 16:40 | disposition home or self-care (01) ==
LOC: ERS 12:29 → 2NO 14:13
PROVIDERS: ADMIT Student in an Organized Health Care Education/Training Program; ATTEND Student in an Organized Health Care Education/Training Program
DX: R07.89 Other chest pain (principal); I50.20 Unspecified systolic (congestive) heart failure; I25.5 Ischemic cardiomyopathy; Z79.01 Long term (current) use of anticoagulants; Z79.899 Other long term (current) drug therapy; Z85.038 Personal history of other malignant neoplasm of large intestine; Z86.718 Personal history of other venous thrombosis and embolism; Z95.810 Presence of automatic (implantable) cardiac defibrillator; Z20.828 Contact with and (suspected) exposure to other viral communicable diseases
CPT/HCPCS: 36415; 71045; 78452; 80053; 80061; 82550; 83036; 83690; 83880; 84443; 84484; 85025; 87635; 93005; 93017; A9500; G0378; J0153; U0003

== ENCOUNTER 2021-01-24 07:57 | Outpatient (CLI) | payer OTHER ==
[2021-01-24 08:27] LABS: Estimated GFR-MDRD - POC Greater than 90
[2021-01-24] MEDS ORDERED: Iopamidol-370 76% 500 ML 1 ML ONE (15:10)
== END 2021-01-24 07:58 | disposition home or self-care (01) ==
LOC: BICCT 07:57
PROVIDERS: ATTEND Physician Assistant Medical
DX: R10.13 Epigastric pain (principal); R10.31 Right lower quadrant pain; K21.9 Gastro-esophageal reflux disease without esophagitis; R93.3 Abnormal findings on diagnostic imaging of other parts of digestive tract; M47.816 Spondylosis without myelopathy or radiculopathy, lumbar region; Z85.038 Personal history of other malignant neoplasm of large intestine; Z90.49 Acquired absence of other specified parts of digestive tract
CPT/HCPCS: 74177; 82565; Q9967

== ENCOUNTER 2021-09-02 12:51 | Outpatient (CLI) | payer OTHER ==
[2021-09-03 00:24] LABS: SARS-CoV-2 PCR by NAA Not Detected (NotDetected)
== END 2021-09-02 12:52 | disposition home or self-care (01) ==
LOC: LABBT 12:51
PROVIDERS: ATTEND Internal Medicine Gastroenterology
DX: K60.2 Anal fissure, unspecified (principal); K43.2 Incisional hernia without obstruction or gangrene; I25.5 Ischemic cardiomyopathy; Z79.01 Long term (current) use of anticoagulants; Z20.822 Contact with and (suspected) exposure to COVID-19; Z85.038 Personal history of other malignant neoplasm of large intestine
CPT/HCPCS: U0003; U0005

== ENCOUNTER 2021-09-05 08:11 | Day surgery (SDC) | payer MEDICAID ==
[2021-09-03 13:17] VITALS: BMI 33.7
[2021-09-05] MEDS ORDERED: Ketamine 50 MG/ML (10ML VIAL) ONE (11:00)
[2021-09-05] MEDS ORDERED: Lidocaine 1% PF 5 ML VIAL ONE (11:15)
[2021-09-05] MEDS ORDERED: Glycopyrrolate 0.2 MG/ML 5 ML SYRINGE ONE (11:15)
[2021-09-05] MEDS ORDERED: PROPOFOL 200 MG/20 ML VIAL ONE (11:17)
== END 2021-09-05 12:30 | disposition home or self-care (01) ==
LOC: SDC 08:11
PROVIDERS: ATTEND Internal Medicine Gastroenterology
PROC: 0DJD8ZZ Inspection of Lower Intestinal Tract, Via Natural or Artificial Opening Endoscopic (ICD-10-PCS; principal; 2021-09-05)
PROC: 0DJ08ZZ Inspection of Upper Intestinal Tract, Via Natural or Artificial Opening Endoscopic (ICD-10-PCS; principal; 2021-09-05)
DX: K62.5 Hemorrhage of anus and rectum (principal); K21.00 Gastro-esophageal reflux disease with esophagitis, without bleeding; G89.29 Other chronic pain; R10.31 Right lower quadrant pain; R10.10 Upper abdominal pain, unspecified; M19.90 Unspecified osteoarthritis, unspecified site; I10 Essential (primary) hypertension; K43.9 Ventral hernia without obstruction or gangrene; E66.3 Overweight; Z68.33 Body mass index [BMI] 33.0-33.9, adult; Z85.038 Personal history of other malignant neoplasm of large intestine; Z86.010 Personal history of colon polyps; Z87.891 Personal history of nicotine dependence; Z79.01 Long term (current) use of anticoagulants; Z79.899 Other long term (current) drug therapy; Z95.810 Presence of automatic (implantable) cardiac defibrillator; Z90.49 Acquired absence of other specified parts of digestive tract
CPT/HCPCS: J2704

== ENCOUNTER 2022-01-01 10:54 | Outpatient (CLI) | payer OTHER ==
[2022-01-01 12:47] LABS: Bilirubin Neg (Negative); Blood, Urine Negative (Negative); Clarity Clear (Clear); Glucose, Urine (Dipstick) Normal (Negative); Ketone, Urine Negative (Negative); Leukocyte Negative (Negative); Nitrite Negative (Negative); Protein, Urine (Dipstick) Negative (Neg-Trace); Specific Gravity, Urine 1.015 (1.002-1.036); Urobilinogen Normal mg/dL (Less than 2)
[2022-01-01 13:04] LABS: #Eosinphils 0.1 10x3/uL (0.0-0.5); #Monocytes 0.6 10x3/uL (0.0-1.1); %Basophils 0.6 % (0.0-2.0); %Eosinophils 1.5 % (0.0-6.0); %Lymphocytes 44.3 % (18.0-47.0); %Monocytes 8.3 % (0.0-10.0); %Neutrophils 45.1 % (40.0-75.0); Hemoglobin 13.8 g/dL (13.5-17.5); Mean Corpuscular Hemoglobin 31.1 pg (27.0-33.0); Mean Corpuscular Volume 88.7 fl (81.2-95.1); Mean Platelet Volume 11.9 fl (7.4-10.4); Platelet Count 144 10x3/uL (150-450); Red Blood Cell (RBC) Count 4.44 10x6/uL (4.32-5.72); White Blood Cell (WBC) Count 6.6 10x3/uL (3.5-10.5)
== END 2022-01-01 10:55 | disposition home or self-care (01) ==
LOC: LABBT 10:54
PROVIDERS: ATTEND Orthopaedic Surgery Hand Surgery
DX: Z01.818 Encounter for other preprocedural examination (principal); Z20.822 Contact with and (suspected) exposure to COVID-19
CPT/HCPCS: 81003; 85025; 87811; 93005; 93010

== ENCOUNTER 2022-01-06 08:30 | Inpatient (IN) | payer OTHER ==
[2022-01-02 14:33] VITALS: BMI 33.1
[2022-01-06 09:36] LABS: Anion Gap 13 mmol/L (10-20); BUN (Urea Nitrogen) 9 mg/dL (8.4-25.7); Calc. Creatinine Clearance 143 mL/min (70-130); Calcium 8.9 mg/dL (7.8-10.44); Carbon Dioxide 23 mmol/L (23-31); Chloride 106 mmol/L (98-107); Estimated GFR 95; Glucose 141 mg/dL (80-115); Potassium 3.8 mmol/L (3.5-5.1); Sodium 138 mmol/L (136-145)
[2022-01-06] MEDS ORDERED: Bupivacaine PF 0.5% 30 ML VIAL ONE ×2 (10:00→17:49)
[2022-01-06] MEDS ORDERED: Midazolam HCl 2 mg/2 ml Vial ONE (10:00)
[2022-01-06] MEDS ORDERED: EPINEPHrine 1 MG/ML AMP ONE (10:00)
[2022-01-06] MEDS ORDERED: Fentanyl 100 MCG/2 ML VIAL ONE ×2 (10:00→18:54)
[2022-01-06] MEDS ORDERED: Neomycin-Polymyxin 1 ML AMP ONE (10:00)
[2022-01-06] MEDS ORDERED: Thrombin 5000 UNITS/5 ML VIAL ONE (10:00)
[2022-01-06] MEDS ORDERED: Bacitracin Zinc Ointment 30 gm TUBE ONE (10:00)
[2022-01-06] MEDS ORDERED: fentaNYL Citrate/PF 100 MCG/2 ML SYRINGE ONE (11:01)
[2022-01-06] MEDS ORDERED: CEFAZOLIN 2 GM VIAL ONE (11:22)
[2022-01-06] MEDS ORDERED: Sodium Chloride 0.9% 100 ML ONE (11:22)
[2022-01-06] MEDS ORDERED: Glycopyrrolate 0.2 MG/ML 5 ML SYRINGE ONE (11:36)
[2022-01-06] MEDS ORDERED: Neostigmine Methylsulfate 3 MG/3 ML SYRINGE ONE (11:36)
[2022-01-06] MEDS ORDERED: Rocuronium Bromide 10 MG/ML (10ML VIAL) ONE (11:36)
[2022-01-06] MEDS ORDERED: Bupivacaine HCl 0.5%/Epinephrine 1:200,000/PF 30 ml Vial ONE (11:36)
[2022-01-06] MEDS ORDERED: Metoclopramide HCl 10 MG/2 ML VIAL ONE (11:36)
[2022-01-06] MEDS ORDERED: Ondansetron PF 4 MG/2 ML Vial ONE (11:36)
[2022-01-06] MEDS ORDERED: Promethazine HCl 25 MG/ML VIAL IVPB PRN (18:44)
[2022-01-06] MEDS ORDERED: Ondansetron HCl/PF 4 MG/2 ML Vial IVP PRN (18:44)
[2022-01-06] MEDS ORDERED: Promethazine HCl 25 MG/ML VIAL IM PRN ×2 (18:44→19:08)
[2022-01-06] MEDS ORDERED: Acetaminophen/Codeine 30-300mg Tablet PO PRN (19:08)
[2022-01-06] MEDS ORDERED: traMADol HCl 50 MG TAB PO PRN (19:08)
[2022-01-06] MEDS ORDERED: Acetaminophen 325 MG TAB PO PRN (19:08)
[2022-01-06] MEDS ORDERED: Ondansetron PF 4 MG/2 ML Vial IVP PRN (19:08)
[2022-01-06] MEDS ORDERED: Meperidine HCl/PF 25 MG/ML VIAL IM PRN (19:13)
[2022-01-06] MEDS ORDERED: TETANUS AND DIPHTHERIA TOX/PF 0.5 ML DISP.SYRIN IM SCH (19:15)
[2022-01-06] MEDS ORDERED: HYDROmorphone 0.5 MG/0.5 ML SYRINGE ONE ×2 (19:15→19:52)
[2022-01-06] MEDS ORDERED: Communication Order-Pharmacy FS SCH (19:15)
[2022-01-06] MEDS: Aspirin 81 mg Enteric Coated Tablet PO SCH (21:30)
[2022-01-06] MEDS: HYDROcodone/Acetaminophen 5/325 mg Tablet PO PRN (21:30)
[2022-01-06] MEDS: Vancomycin 1 GM in Premix Bag 1 BAG IVPB SCH (21:31)
[2022-01-06] MEDS ORDERED: Zolpidem Tartrate 5 MG TAB PO SCH (23:15)
[2022-01-06] MEDS ORDERED: Sacubitril 49 MG/Valsartan 51 MG TABLET PO SCH (23:15)
[2022-01-06] MEDS ORDERED: Apixaban 5 MG TAB PO SCH (23:15)
[2022-01-07] MEDS: Morphine 4 MG/ML VIAL SLOW IVP PRN ×2 (00:46→04:07)
[2022-01-07] MEDS: HYDROcodone/Acetaminophen 5/325 mg Tablet PO PRN ×4 (02:41→21:02)
[2022-01-07] MEDS ORDERED: Ketorolac Tromethamine 30 MG/ML VIAL IM SCH (07:15)
[2022-01-07] MEDS ORDERED: Ketorolac Tromethamine 30 MG/ML VIAL IVP SCH (07:15)
[2022-01-07] MEDS: Fentanyl 100 MCG/2 ML VIAL SLOW IVP PRN ×3 (09:31→21:20)
[2022-01-07] MEDS: Vancomycin 1 GM in Premix Bag 1 BAG IVPB SCH ×2 (09:32→20:58)
[2022-01-07] MEDS: Aspirin 81 mg Enteric Coated Tablet PO SCH ×2 (09:33→21:02)
[2022-01-07] MEDS: Furosemide 40 MG TAB PO SCH (09:33)
[2022-01-07] MEDS: Sacubitril 49 MG/Valsartan 51 MG TABLET PO SCH ×2 (09:33→21:01)
[2022-01-07] MEDS: Apixaban 5 MG TAB PO SCH ×2 (09:33→21:04)
[2022-01-07] MEDS: Metamucil PACK PO SCH (09:34)
[2022-01-07] MEDS: Carvedilol 6.25 MG TAB PO SCH ×2 (09:40→21:02)
[2022-01-07] MEDS: Ketorolac Tromethamine 30 MG/ML VIAL IVP SCH (18:40)
[2022-01-07] MEDS: Zolpidem Tartrate 5 MG TAB PO SCH (21:04)
[2022-01-08] MEDS: Ketorolac Tromethamine 30 MG/ML VIAL IVP SCH ×4 (00:11→18:35)
[2022-01-08] MEDS: HYDROcodone/Acetaminophen 5/325 mg Tablet PO PRN ×3 (03:39→21:30)
[2022-01-08] MEDS: Furosemide 40 MG TAB PO SCH (09:32)
[2022-01-08] MEDS: Carvedilol 6.25 MG TAB PO SCH ×2 (09:33→21:29)
[2022-01-08] MEDS: Apixaban 5 MG TAB PO SCH ×2 (09:33→21:29)
[2022-01-08] MEDS: Aspirin 81 mg Enteric Coated Tablet PO SCH ×2 (09:33→21:38)
[2022-01-08] MEDS: Fentanyl 100 MCG/2 ML VIAL SLOW IVP PRN ×3 (09:34→21:27)
[2022-01-08] MEDS: Vancomycin 1 GM in Premix Bag 1 BAG IVPB SCH ×2 (09:34→21:39)
[2022-01-08] MEDS: Sacubitril 49 MG/Valsartan 51 MG TABLET PO SCH ×2 (09:34→21:31)
[2022-01-08] MEDS: Metamucil PACK PO SCH (09:35)
[2022-01-08] MEDS: Zolpidem Tartrate 5 MG TAB PO SCH (21:28)
[2022-01-09] MEDS: Ketorolac Tromethamine 30 MG/ML VIAL IVP SCH ×2 (00:37→06:35)
[2022-01-09] MEDS: Fentanyl 100 MCG/2 ML VIAL SLOW IVP PRN ×2 (04:21→10:32)
[2022-01-09] MEDS: HYDROcodone/Acetaminophen 5/325 mg Tablet PO PRN (06:36)
[2022-01-09 08:37] VITALS: TEMP 98.1
[2022-01-09] MEDS: Carvedilol 6.25 MG TAB PO SCH (10:22)
[2022-01-09] MEDS: Aspirin 81 mg Enteric Coated Tablet PO SCH (10:22)
[2022-01-09] MEDS: Apixaban 5 MG TAB PO SCH (10:22)
[2022-01-09] MEDS: Furosemide 40 MG TAB PO SCH (10:23)
[2022-01-09] MEDS: Vancomycin 1 GM in Premix Bag 1 BAG IVPB SCH (10:23)
[2022-01-09] MEDS: Sacubitril 49 MG/Valsartan 51 MG TABLET PO SCH (10:23)
[2022-01-09] MEDS: Metamucil PACK PO SCH (10:23)
[2022-01-09 10:24] VITALS: BP 103/66
== END 2022-01-09 11:47 | disposition home or self-care (01) | DRG 511 ==
LOC: SDC 08:30 → SURG A 20:09
PROVIDERS: ADMIT Orthopaedic Surgery Hand Surgery; ATTEND Orthopaedic Surgery Hand Surgery
PROC: 0PHK04Z Insertion of Internal Fixation Device into Right Ulna, Open Approach (ICD-10-PCS; principal; 2022-01-06)
PROC: 0PR Upper Bones, Replacement (ICD-10-PCS; 2022-01-06)
PROC: 0QB20ZZ Excision of Right Pelvic Bone, Open Approach (ICD-10-PCS; 2022-01-06)
PROC: 3E0T3BZ Introduction of Anesthetic Agent into Peripheral Nerves and Plexi, Percutaneous Approach (ICD-10-PCS; 2022-01-06)
DX: M19.131 Post-traumatic osteoarthritis, right wrist (principal); M87.03 Idiopathic aseptic necrosis of radius, ulna and carpus; S52.591P Other fractures of lower end of right radius, subsequent encounter for closed fracture with malunion; Z20.822 Contact with and (suspected) exposure to COVID-19; K21.9 Gastro-esophageal reflux disease without esophagitis; I10 Essential (primary) hypertension; Z98.890 Other specified postprocedural states; S69.81XD Other specified injuries of right wrist, hand and finger(s), subsequent encounter
CPT/HCPCS: 36415; 76000; 80048; C1713; C1874; J0171; J0690; J1170; J1885; J2175; J2250; J2270; J2405; J2765; J3010; J3370; J3490; S0020

== ENCOUNTER 2022-09-15 08:59 | Outpatient (CLI) | payer OTHER | END 2022-09-15 09:00 | disposition home or self-care (01) | LOC: ULT 08:59 | PROVIDERS: ATTEND Internal Medicine Gastroenterology | DX: R10.9 Unspecified abdominal pain (principal); K76.0 Fatty (change of) liver, not elsewhere classified; K82.8 Other specified diseases of gallbladder; N28.1 Cyst of kidney, acquired | CPT/HCPCS: 76700 ==

== ENCOUNTER 2022-11-18 09:26 | Inpatient (IN) | payer OTHER ==
[2022-11-18 10:44] LABS: #Monocytes 0.8 thou/uL (0.11-0.59); %Basophils 0.3 % (0.0-1.0); %Eosinophils 0.2 % (0.0-10.0); %Lymphocytes 23.9 % (21.0-51.0); %Monocytes 6.1 % (0.0-10.0); %Neutrophils 69.2 % (42.0-75.0); Hemoglobin 17.3 g/dL (14.0-18.0); Mean Corpuscular HGB CONC 34.7 g/dL (32.0-36.0); Mean Corpuscular Hemoglobin 30.7 pg (27.0-31.0); Mean Corpuscular Volume 88.3 fl (78.0-98.0); Mean Platelet Volume 12.2 fL (7.4-10.4); Platelet Count 215 10x3/uL (130-400); RBC Distribution Width 11.9 % (11.5-14.5); Red Blood Cell (RBC) Count 5.64 mill/uL (4.70-6.10)
[2022-11-18 10:56] LABS: Bacteria/HPF None Seen HPF (None Seen); Bilirubin Negative (Negative); Blood, Urine Negative (Negative); CAUTI Indications for Culture Dysuria,urgency,freq; Clarity Clear (Clear); Glucose, Urine (Dipstick) Greater than 1000 mg/dL (Negative); Ketone, Urine 80 mg/dL (Negative); Leukocyte Negative Leu/uL (Negative); Nitrite Negative (Negative); Protein, Urine (Dipstick) 10 mg/dL (Neg-Trace); Specific Gravity, Urine 1.032 (1.002-1.036); Squamous Epithelial 0-3 HPF (0-3); Urobilinogen Normal mg/dL (Less than 2); WBC/HPF 0-3 HPF (0-3)
[2022-11-18 11:00] LABS: RBC/HPF 0-3 HPF (0-3)
[2022-11-18 11:01] LABS: Urine Culture Reflex No No
[2022-11-18 11:04] LABS: Phosphorus 5.5 mg/dL (2.3-4.7)
[2022-11-18 11:08] LABS: ALT (SGPT) 43 U/L (8-55); AST (SGOT) 58 U/L (5-34); Albumin 5.1 g/dL (3.4-4.8); Alkaline Phosphatase 121 U/L (40-110); Anion Gap 29 mmol/L (10-20); BUN (Urea Nitrogen) 38 mg/dL (8.4-25.7); Bilirubin, Total 0.6 mg/dL (0.2-1.2); Calc. Creatinine Clearance 0 mL/min (70-130); Calcium 11.8 mg/dL (7.8-10.44); Carbon Dioxide 19 mmol/L (23-31); Chloride 96 mmol/L (98-107); Estimated GFR 31; Globulin 4.7 g/dL (2.4-3.5); Lipase 129 U/L (8-78); Magnesium 3.3 mg/dL (1.6-2.6); Potassium 5.3 mmol/L (3.5-5.1); Protein, Total 9.8 g/dL (5.8-8.1); Sodium 139 mmol/L (136-145)
[2022-11-18 11:23] LABS: Glucose 608 mg/dL (80-115)
[2022-11-18] MEDS ORDERED: INSULIN REGULAR IN 0.9 % NACL 100 UNITS/100 ML BAG ONE (11:53)
[2022-11-18 12:59] LABS: Actual Bicarbonate (HCO3v) 21.4 mEq/L (22-28); Calcium, Ionized (venous) 1.27 mmol/L (1.16-1.32); Chloride (VBG) 96 mmol/L (98-106); Hematocrit-VBG 56 % (42.0-52.0); Hemoglobin (Hb) 19.1 g/dL (13.1-17.2); Sodium 144.2 mmol/L (133-146); pH (venous) 7.223 (7.32-7.43)
[2022-11-18] MEDS ORDERED: Dextrose 50% Abboject 50 ML SYRINGE SLOW IVP PRN (14:50)
[2022-11-18] MEDS ORDERED: NS 0.9% w/ 20 MEQ KCL 1,000 ML IV PRN ×2 (14:50)
[2022-11-18] MEDS ORDERED: Dextrose 5 %-0.45 % NaCl 1,000 ML IV PRN (14:50)
[2022-11-18] MEDS ORDERED: D5 1/2 NS w/20 mEq KCL 1,000 ML IV PRN (14:50)
[2022-11-18] MEDS ORDERED: Electrolyte Replacement Protocol 1 EACH IVPB SCH (14:50)
[2022-11-18] MEDS ORDERED: Sodium Chloride 0.9% 1,000 ML IV PRN ×4 (14:50)
[2022-11-18] MEDS ORDERED: HUMULIN R 100 UNITS in Sodium Chloride 0.9% 100 ML IVPB SCH (15:00)
[2022-11-18 16:58] LABS: Hemoglobin A1c 10.9 % (4.0-6.0)
[2022-11-18 17:16] LABS: Anion Gap 24 mmol/L (10-20); BUN (Urea Nitrogen) 32 mg/dL (8.4-25.7); Calc. Creatinine Clearance 0 mL/min (70-130); Calcium 11.1 mg/dL (7.8-10.44); Carbon Dioxide 18 mmol/L (23-31); Chloride 105 mmol/L (98-107); Estimated GFR 41; Glucose 347 mg/dL (80-115); Potassium 4.1 mmol/L (3.5-5.1); Sodium 143 mmol/L (136-145)
[2022-11-18] MEDS: Nystatin 500,000 UNITS/5 ML UDCUP PO SCH ×2 (17:29→21:37)
[2022-11-18 19:40] VITALS: BMI 27.3
[2022-11-18] MEDS: Melatonin 3 MG TAB PO PRN (21:38)
[2022-11-18] MEDS: Rosuvastatin 20 MG TAB PO SCH (21:38)
[2022-11-18] MEDS: Pantoprazole 40 MG VIAL IVP SCH (21:38)
[2022-11-18] MEDS: Apixaban 2.5 MG TAB PO SCH (21:38)
[2022-11-18] MEDS: Carvedilol 6.25 MG TAB PO SCH (21:38)
[2022-11-18 21:56] LABS: Anion Gap 21 mmol/L (10-20); BUN (Urea Nitrogen) 29 mg/dL (8.4-25.7); Calc. Creatinine Clearance 66 mL/min (70-130); Calcium 10.8 mg/dL (7.8-10.44); Carbon Dioxide 20 mmol/L (23-31); Chloride 108 mmol/L (98-107); Estimated GFR 48; Glucose 240 mg/dL (80-115); Potassium 5.3 mmol/L (3.5-5.1); Sodium 144 mmol/L (136-145)
[2022-11-19 05:38] LABS: #Basophils 0.1 thou/uL (0.0-0.2); #Eosinphils 0.1 thou/uL (0.0-0.7); #Monocytes 1.1 thou/uL (0.11-0.59); #Neutrophils 7.9 thou/uL (1.40-6.50); %Basophils 0.4 % (0.0-1.0); %Eosinophils 0.4 % (0.0-10.0); %Lymphocytes 30.2 % (21.0-51.0); %Monocytes 8.1 % (0.0-10.0); %Neutrophils 60.4 % (42.0-75.0); Hemoglobin 15.3 g/dL (14.0-18.0); Mean Corpuscular HGB CONC 34.2 g/dL (32.0-36.0); Mean Corpuscular Hemoglobin 30.6 pg (27.0-31.0); Mean Corpuscular Volume 89.6 fl (78.0-98.0); Mean Platelet Volume 11.4 fL (7.4-10.4); Platelet Count 145 10x3/uL (130-400); RBC Distribution Width 11.9 % (11.5-14.5)
[2022-11-19 06:02] LABS: Anion Gap 13 mmol/L (10-20); BUN (Urea Nitrogen) 19 mg/dL (8.4-25.7); Calc. Creatinine Clearance 83 mL/min (70-130); Carbon Dioxide 21 mmol/L (23-31); Chloride 112 mmol/L (98-107); Estimated GFR 63; Glucose 210 mg/dL (80-115); Potassium 3.5 mmol/L (3.5-5.1); Sodium 142 mmol/L (136-145)
[2022-11-19 06:05] LABS: ALT (SGPT) 31 U/L (8-55); AST (SGOT) 27 U/L (5-34); Albumin 3.9 g/dL (3.4-4.8); Alkaline Phosphatase 86 U/L (40-110); Anion Gap 13 mmol/L (10-20); BUN (Urea Nitrogen) 20 mg/dL (8.4-25.7); Bilirubin, Total 0.6 mg/dL (0.2-1.2); Calc. Creatinine Clearance 79 mL/min (70-130); Carbon Dioxide 22 mmol/L (23-31); Chloride 113 mmol/L (98-107); Estimated GFR 59; Globulin 3.2 g/dL (2.4-3.5); Glucose 211 mg/dL (80-115); Magnesium 2.4 mg/dL (1.6-2.6); Potassium 3.6 mmol/L (3.5-5.1); Protein, Total 7.1 g/dL (5.8-8.1); Sodium 144 mmol/L (136-145)
[2022-11-19 06:08] LABS: Phosphorus 1.5 mg/dL (2.3-4.7)
[2022-11-19] MEDS ORDERED: HumaLOG 300 UNITS/3 ML VIAL SC SCH ×2 (06:15→17:00)
[2022-11-19] MEDS ORDERED: Potassium Phosphate 22 MMOL in Sodium Chloride 0.9% 250 ML 250 ML IVPB SCH (06:30)
[2022-11-19] MEDS: Nystatin 500,000 UNITS/5 ML UDCUP PO SCH ×4 (08:28→20:42)
[2022-11-19] MEDS: Apixaban 2.5 MG TAB PO SCH (08:29)
[2022-11-19] MEDS: Carvedilol 6.25 MG TAB PO SCH ×2 (08:29→20:43)
[2022-11-19] MEDS ORDERED: Insulin Glargine 30 UNITS/0.3 ML VIAL SC SCH (09:00)
[2022-11-19] MEDS ORDERED: Dextrose 5 %-0.45 % NaCl 1,000 ML IV SCH (10:00)
[2022-11-19 10:12] LABS: Anion Gap 14 mmol/L (10-20); BUN (Urea Nitrogen) 18 mg/dL (8.4-25.7); Calc. Creatinine Clearance 86 mL/min (70-130); Carbon Dioxide 24 mmol/L (23-31); Chloride 111 mmol/L (98-107); Estimated GFR 65; Glucose 133 mg/dL (80-115); Potassium 3.5 mmol/L (3.5-5.1); Sodium 145 mmol/L (136-145)
[2022-11-19] MEDS: HumaLOG 300 UNITS/3 ML VIAL SC PRN ×3 (12:10→20:46)
[2022-11-19] MEDS: Lactated Ringer's 1,000 ML IV SCH ×2 (12:35→20:42)
[2022-11-19 17:49] LABS: Anion Gap 15 mmol/L (10-20); BUN (Urea Nitrogen) 17 mg/dL (8.4-25.7); Calc. Creatinine Clearance 84 mL/min (70-130); Calcium 9.8 mg/dL (7.8-10.44); Carbon Dioxide 22 mmol/L (23-31); Chloride 110 mmol/L (98-107); Estimated GFR 64; Glucose 299 mg/dL (80-115); Potassium 4.2 mmol/L (3.5-5.1); Sodium 143 mmol/L (136-145)
[2022-11-19] MEDS: Sacubitril 24MG/Valsartan 26 MG TAB PO SCH (20:43)
[2022-11-19] MEDS: Apixaban 5 MG TAB PO SCH (20:43)
[2022-11-19] MEDS: Rosuvastatin 20 MG TAB PO SCH (20:43)
[2022-11-19] MEDS: Pantoprazole 40 MG VIAL IVP SCH (20:44)
[2022-11-20] MEDS: Lactated Ringer's 1,000 ML IV SCH ×2 (02:49→10:49)
[2022-11-20 03:55] LABS: #Eosinphils 0.1 thou/uL (0.0-0.7); #Monocytes 0.8 thou/uL (0.11-0.59); #Neutrophils 5.2 thou/uL (1.40-6.50); %Basophils 0.3 % (0.0-1.0); %Eosinophils 0.8 % (0.0-10.0); %Lymphocytes 36.1 % (21.0-51.0); %Monocytes 8.1 % (0.0-10.0); %Neutrophils 54.4 % (42.0-75.0); Hemoglobin 13.3 g/dL (14.0-18.0); Mean Corpuscular HGB CONC 34.2 g/dL (32.0-36.0); Mean Corpuscular Hemoglobin 30.6 pg (27.0-31.0); Mean Corpuscular Volume 89.4 fl (78.0-98.0); Mean Platelet Volume 12.4 fL (7.4-10.4); Platelet Count 130 10x3/uL (130-400); RBC Distribution Width 11.9 % (11.5-14.5); Red Blood Cell (RBC) Count 4.35 mill/uL (4.70-6.10); White Blood Cell (WBC) Count 9.6 10x3/uL (4.8-10.8)
[2022-11-20 04:20] LABS: ALT (SGPT) 29 U/L (8-55); AST (SGOT) 24 U/L (5-34); Albumin 3.4 g/dL (3.4-4.8); Alkaline Phosphatase 76 U/L (40-110); Anion Gap 13 mmol/L (10-20); BUN (Urea Nitrogen) 11 mg/dL (8.4-25.7); Bilirubin, Total 0.7 mg/dL (0.2-1.2); Calc. Creatinine Clearance 104 mL/min (70-130); Calcium 9.4 mg/dL (7.8-10.44); Carbon Dioxide 23 mmol/L (23-31); Chloride 107 mmol/L (98-107); Estimated GFR 83; Globulin 2.7 g/dL (2.4-3.5); Glucose 302 mg/dL (80-115); Potassium 3.2 mmol/L (3.5-5.1); Protein, Total 6.1 g/dL (5.8-8.1); Sodium 140 mmol/L (136-145)
[2022-11-20] MEDS: HumaLOG 300 UNITS/3 ML VIAL SC PRN ×2 (06:05→20:39)
[2022-11-20] MEDS ORDERED: Potassium Chloride 20 MEQ TAB PO SCH ×2 (07:00→08:00)
[2022-11-20] MEDS: Apixaban 5 MG TAB PO SCH ×2 (08:19→20:38)
[2022-11-20] MEDS: Spironolactone 25 MG TAB PO SCH (08:19)
[2022-11-20] MEDS: Furosemide 20 MG TAB PO SCH (08:19)
[2022-11-20] MEDS: Sacubitril 24MG/Valsartan 26 MG TAB PO SCH ×2 (08:19→20:38)
[2022-11-20] MEDS: Nystatin 500,000 UNITS/5 ML UDCUP PO SCH ×4 (08:19→20:39)
[2022-11-20] MEDS: HumaLOG 300 UNITS/3 ML VIAL SC SCH ×3 (08:19→16:45)
[2022-11-20] MEDS: Carvedilol 6.25 MG TAB PO SCH ×2 (08:19→20:38)
[2022-11-20] MEDS ORDERED: Insulin Glargine 30 UNITS/0.3 ML VIAL SC SCH (09:00)
[2022-11-20] MEDS ORDERED: HumaLOG 300 UNITS/3 ML VIAL SC PRN (09:27)
[2022-11-20 11:22] LABS: Phosphorus 2.7 mg/dL (2.3-4.7)
[2022-11-20] MEDS ORDERED: Glucagon 1 MG/ML KIT IM PRN (17:46)
[2022-11-20] MEDS ORDERED: Dextrose 5% in Water 1,000 ML IV PRN (17:46)
[2022-11-20] MEDS: Pantoprazole 40 MG VIAL IVP SCH (20:39)
[2022-11-20] MEDS: Rosuvastatin 20 MG TAB PO SCH (20:39)
[2022-11-20] MEDS: Ondansetron PF 4 MG/2 ML Vial IVP PRN (20:39)
[2022-11-21 05:03] LABS: #Eosinphils 0.1 thou/uL (0.0-0.7); #Monocytes 0.6 thou/uL (0.11-0.59); #Neutrophils 3.8 thou/uL (1.40-6.50); %Basophils 0.3 % (0.0-1.0); %Eosinophils 1.2 % (0.0-10.0); %Lymphocytes 41.7 % (21.0-51.0); %Monocytes 7.6 % (0.0-10.0); %Neutrophils 48.7 % (42.0-75.0); Hemoglobin 13.1 g/dL (14.0-18.0); Mean Corpuscular Hemoglobin 30.8 pg (27.0-31.0); Mean Corpuscular Volume 90.4 fl (78.0-98.0); Mean Platelet Volume 12.1 fL (7.4-10.4); Platelet Count 116 10x3/uL (130-400); RBC Distribution Width 11.8 % (11.5-14.5); Red Blood Cell (RBC) Count 4.26 mill/uL (4.70-6.10); White Blood Cell (WBC) Count 7.8 10x3/uL (4.8-10.8)
[2022-11-21 05:29] LABS: ALT (SGPT) 28 U/L (8-55); AST (SGOT) 22 U/L (5-34); Albumin 3.3 g/dL (3.4-4.8); Alkaline Phosphatase 74 U/L (40-110); Anion Gap 14 mmol/L (10-20); BUN (Urea Nitrogen) 13 mg/dL (8.4-25.7); Bilirubin, Total 0.7 mg/dL (0.2-1.2); Calc. Creatinine Clearance 110 mL/min (70-130); Calcium 9.2 mg/dL (7.8-10.44); Carbon Dioxide 24 mmol/L (23-31); Chloride 106 mmol/L (98-107); Estimated GFR 88; Globulin 2.7 g/dL (2.4-3.5); Glucose 338 mg/dL (80-115); Potassium 3.4 mmol/L (3.5-5.1); Sodium 141 mmol/L (136-145)
[2022-11-21] MEDS ORDERED: Potassium Chloride 20 MEQ TAB PO SCH (06:45)
[2022-11-21 06:54] LABS: CellaVision Operator ID LAB.JMM; Platelet Adequacy Comment Platelets Decreased; RBC Morphology Within Normal Limits
[2022-11-21] MEDS: HumaLOG 300 UNITS/3 ML VIAL SC PRN ×4 (06:59→21:54)
[2022-11-21 07:09] LABS: Phosphorus 2.3 mg/dL (2.3-4.7)
[2022-11-21] MEDS: Nystatin 500,000 UNITS/5 ML UDCUP PO SCH ×4 (07:50→21:51)
[2022-11-21] MEDS: Sacubitril 24MG/Valsartan 26 MG TAB PO SCH ×2 (07:52→21:51)
[2022-11-21] MEDS: Furosemide 20 MG TAB PO SCH (07:53)
[2022-11-21] MEDS: Apixaban 5 MG TAB PO SCH ×2 (07:54→21:51)
[2022-11-21] MEDS: Spironolactone 25 MG TAB PO SCH (07:54)
[2022-11-21] MEDS: Carvedilol 6.25 MG TAB PO SCH ×2 (07:54→17:26)
[2022-11-21] MEDS: HumaLOG 300 UNITS/3 ML VIAL SC SCH ×3 (07:55→17:26)
[2022-11-21] MEDS ORDERED: metFORMIN 500 MG TAB PO SCH (08:15)
[2022-11-21] MEDS: metFORMIN 500 MG TAB PO SCH ×2 (08:49→17:26)
[2022-11-21] MEDS ORDERED: Insulin Glargine 30 UNITS/0.3 ML VIAL SC SCH ×3 (09:00→21:00)
[2022-11-21] MEDS ORDERED: Clotrimazole 1% Cream 15 GM TUBE TOP SCH (09:00)
[2022-11-21] MEDS: Clotrimazole 1 % Cream 30 GM TUBE TOP SCH ×2 (10:07→21:52)
[2022-11-21] MEDS: Ondansetron PF 4 MG/2 ML Vial IVP PRN (15:08)
[2022-11-21] MEDS: Rosuvastatin 20 MG TAB PO SCH (21:43)
[2022-11-21] MEDS: Pantoprazole 40 MG VIAL IVP SCH (22:25)
[2022-11-22 05:03] LABS: #Eosinphils 0.1 thou/uL (0.0-0.7); #Monocytes 0.7 thou/uL (0.11-0.59); #Neutrophils 4.4 thou/uL (1.40-6.50); %Basophils 0.3 % (0.0-1.0); %Eosinophils 0.9 % (0.0-10.0); %Lymphocytes 41.5 % (21.0-51.0); %Monocytes 7.9 % (0.0-10.0); %Neutrophils 49.1 % (42.0-75.0); Hemoglobin 13.2 g/dL (14.0-18.0); Mean Corpuscular Hemoglobin 30.9 pg (27.0-31.0); Mean Corpuscular Volume 90.9 fl (78.0-98.0); Platelet Count 122 10x3/uL (130-400); RBC Distribution Width 11.8 % (11.5-14.5); Red Blood Cell (RBC) Count 4.27 mill/uL (4.70-6.10); White Blood Cell (WBC) Count 8.9 10x3/uL (4.8-10.8)
[2022-11-22 05:26] LABS: ALT (SGPT) 25 U/L (8-55); AST (SGOT) 17 U/L (5-34); Albumin 3.5 g/dL (3.4-4.8); Alkaline Phosphatase 74 U/L (40-110); Anion Gap 14 mmol/L (10-20); BUN (Urea Nitrogen) 15 mg/dL (8.4-25.7); Bilirubin, Total 0.5 mg/dL (0.2-1.2); Calc. Creatinine Clearance 119 mL/min (70-130); Calcium 9.4 mg/dL (7.8-10.44); Carbon Dioxide 23 mmol/L (23-31); Chloride 103 mmol/L (98-107); Estimated GFR 89; Globulin 2.8 g/dL (2.4-3.5); Glucose 299 mg/dL (80-115); Potassium 3.4 mmol/L (3.5-5.1); Protein, Total 6.3 g/dL (5.8-8.1); Sodium 137 mmol/L (136-145)
[2022-11-22] MEDS: HumaLOG 300 UNITS/3 ML VIAL SC PRN ×3 (05:40→17:16)
[2022-11-22] MEDS ORDERED: Potassium Chloride 20 MEQ TAB PO SCH (07:15)
[2022-11-22] MEDS: HumaLOG 300 UNITS/3 ML VIAL SC SCH ×3 (09:51→17:14)
[2022-11-22] MEDS: Insulin Glargine 30 UNITS/0.3 ML VIAL SC SCH ×2 (09:52→21:51)
[2022-11-22] MEDS: Apixaban 5 MG TAB PO SCH ×2 (09:52→21:50)
[2022-11-22] MEDS: Furosemide 20 MG TAB PO SCH (09:52)
[2022-11-22] MEDS: metFORMIN 500 MG TAB PO SCH ×2 (09:52→17:14)
[2022-11-22] MEDS: Spironolactone 25 MG TAB PO SCH (09:53)
[2022-11-22] MEDS: Clotrimazole 1 % Cream 30 GM TUBE TOP SCH ×2 (09:54→21:52)
[2022-11-22] MEDS: Sacubitril 24MG/Valsartan 26 MG TAB PO SCH ×2 (09:54→21:51)
[2022-11-22] MEDS: Carvedilol 6.25 MG TAB PO SCH (09:59)
[2022-11-22] MEDS ORDERED: Empagliflozin 25 MG TAB PO SCH (10:00)
[2022-11-22] MEDS: Pantoprazole 40 MG VIAL IVP SCH ×2 (10:03→21:50)
[2022-11-22] MEDS: Carvedilol 3.125 MG TAB PO SCH (17:13)
[2022-11-22] MEDS: Rosuvastatin 20 MG TAB PO SCH (21:50)
[2022-11-22] MEDS: Melatonin 3 MG TAB PO PRN (22:02)
[2022-11-23] MEDS ORDERED: Acetaminophen 500 MG TAB PO SCH (00:45)
[2022-11-23 04:37] LABS: #Monocytes 0.6 thou/uL (0.11-0.59); #Neutrophils 12.3 thou/uL (1.40-6.50); %Basophils 0.2 % (0.0-1.0); %Eosinophils 0.3 % (0.0-10.0); %Lymphocytes 7.6 % (21.0-51.0); %Monocytes 4.1 % (0.0-10.0); %Neutrophils 87.4 % (42.0-75.0); Hemoglobin 13.7 g/dL (14.0-18.0); Mean Corpuscular HGB CONC 34.1 g/dL (32.0-36.0); Mean Corpuscular Hemoglobin 30.9 pg (27.0-31.0); Mean Corpuscular Volume 90.7 fl (78.0-98.0); Mean Platelet Volume 12.3 fL (7.4-10.4); RBC Distribution Width 11.7 % (11.5-14.5); Red Blood Cell (RBC) Count 4.43 mill/uL (4.70-6.10); White Blood Cell (WBC) Count 14.1 10x3/uL (4.8-10.8)
[2022-11-23 04:59] LABS: ALT (SGPT) 34 U/L (8-55); AST (SGOT) 33 U/L (5-34); Albumin 3.8 g/dL (3.4-4.8); Alkaline Phosphatase 76 U/L (40-110); Anion Gap 17 mmol/L (10-20); BUN (Urea Nitrogen) 20 mg/dL (8.4-25.7); Bilirubin, Total 0.6 mg/dL (0.2-1.2); Calc. Creatinine Clearance 102 mL/min (70-130); Calcium 10.1 mg/dL (7.8-10.44); Carbon Dioxide 22 mmol/L (23-31); Chloride 103 mmol/L (98-107); Estimated GFR 74; Glucose 248 mg/dL (80-115); Potassium 3.7 mmol/L (3.5-5.1); Protein, Total 6.8 g/dL (5.8-8.1); Sodium 138 mmol/L (136-145)
[2022-11-23 05:46] LABS: Platelet Count 119 10x3/uL (130-400)
[2022-11-23] MEDS: Insulin Glargine 30 UNITS/0.3 ML VIAL SC SCH ×2 (09:06→20:26)
[2022-11-23] MEDS: HumaLOG 300 UNITS/3 ML VIAL SC SCH ×3 (09:06→16:44)
[2022-11-23] MEDS: Furosemide 20 MG TAB PO SCH (09:07)
[2022-11-23] MEDS: Spironolactone 25 MG TAB PO SCH (09:07)
[2022-11-23] MEDS: metFORMIN 500 MG TAB PO SCH ×2 (09:07→16:43)
[2022-11-23] MEDS: Carvedilol 3.125 MG TAB PO SCH (09:07)
[2022-11-23] MEDS: Empagliflozin 10 MG TAB PO SCH (09:07)
[2022-11-23] MEDS: Apixaban 5 MG TAB PO SCH ×2 (09:07→20:21)
[2022-11-23] MEDS: Sacubitril 24MG/Valsartan 26 MG TAB PO SCH ×2 (09:07→20:21)
[2022-11-23] MEDS: Clotrimazole 1 % Cream 30 GM TUBE TOP SCH ×2 (09:09→20:25)
[2022-11-23] MEDS ORDERED: Lactated Ringer's 1,000 ML IV SCH ×2 (11:15→14:45)
[2022-11-23] MEDS: Acetaminophen 325 MG TAB PO PRN ×2 (12:15→20:20)
[2022-11-23 15:39] LABS: SARS-CoV-2 NAA Rapid Test Not Detected (NotDetected)
[2022-11-23] MEDS ORDERED: VANCOMYCIN 2 GRAM/500 ML BAG 2 GM in Premix Bag 1 BAG IVPB SCH (16:15)
[2022-11-23 16:36] LABS: Bacteria/HPF None Seen HPF (None Seen); Bilirubin Negative (Negative); Blood, Urine Negative (Negative); CAUTI Indications for Culture Fever or rigors; Clarity Clear (Clear); Glucose, Urine (Dipstick) Greater than 1000 mg/dL (Negative); Ketone, Urine Negative (Negative); Leukocyte Negative Leu/uL (Negative); Nitrite Negative (Negative); Protein, Urine (Dipstick) Negative (Neg-Trace); RBC/HPF 0-3 HPF (0-3); Specific Gravity, Urine 1.013 (1.002-1.036); Squamous Epithelial None Seen HPF (0-3); Urobilinogen Normal mg/dL (Less than 2); WBC/HPF None Seen HPF (0-3); pH, Urine 5.5 (5.0-9.0)
[2022-11-23] MEDS: Cefepime 2 GM in Sodium Chloride 0.9% 100 ML IVPB SCH (16:36)
[2022-11-23 16:40] LABS: Urine Culture Reflex No No
[2022-11-23] MEDS ORDERED: Cefepime 2 GM in Sodium Chloride 0.9% 100 ML IVPB SCH (17:00)
[2022-11-23 18:29] LABS: Chlam.trachomatis by PCR,Urine Not Detected (NotDetected); GC N.gonorrhoeae PCR,UrineVOID Not Detected (NotDetected)
[2022-11-23 20:13] LABS: Lactic Acid 1.2 mmol/L (0.5-2.2)
[2022-11-23] MEDS: Rosuvastatin 20 MG TAB PO SCH (20:21)
[2022-11-23] MEDS: Metoprolol Tartrate 25 MG TAB PO SCH (20:21)
[2022-11-23] MEDS ORDERED: Cefepime 1 GM in Sodium Chloride 0.9% 100 ML IVPB SCH (21:00)
[2022-11-24] MEDS: Ondansetron PF 4 MG/2 ML Vial IVP PRN ×3 (03:40→16:28)
[2022-11-24] MEDS: Melatonin 3 MG TAB PO PRN ×2 (03:41→21:04)
[2022-11-24 04:53] LABS: #Eosinphils 0.1 thou/uL (0.0-0.7); #Monocytes 1.2 thou/uL (0.11-0.59); #Neutrophils 8.2 thou/uL (1.40-6.50); %Basophils 0.2 % (0.0-1.0); %Eosinophils 0.4 % (0.0-10.0); %Lymphocytes 16.5 % (21.0-51.0); %Monocytes 10.4 % (0.0-10.0); Hemoglobin 12.6 g/dL (14.0-18.0); Mean Corpuscular HGB CONC 34.2 g/dL (32.0-36.0); Mean Corpuscular Volume 90.4 fl (78.0-98.0); Mean Platelet Volume 11.7 fL (7.4-10.4); Platelet Count 109 10x3/uL (130-400); Red Blood Cell (RBC) Count 4.07 mill/uL (4.70-6.10); White Blood Cell (WBC) Count 11.3 10x3/uL (4.8-10.8)
[2022-11-24 05:18] LABS: ALT (SGPT) 73 U/L (8-55); AST (SGOT) 77 U/L (5-34); Albumin 3.5 g/dL (3.4-4.8); Alkaline Phosphatase 73 U/L (40-110); Anion Gap 15 mmol/L (10-20); BUN (Urea Nitrogen) 12 mg/dL (8.4-25.7); Bilirubin, Total 1.4 mg/dL (0.2-1.2); Calc. Creatinine Clearance 121 mL/min (70-130); Calcium 9.7 mg/dL (7.8-10.44); Carbon Dioxide 24 mmol/L (23-31); Chloride 102 mmol/L (98-107); Estimated GFR 91; Globulin 3.1 g/dL (2.4-3.5); Glucose 136 mg/dL (80-115); Potassium 3.6 mmol/L (3.5-5.1); Protein, Total 6.6 g/dL (5.8-8.1); Sodium 137 mmol/L (136-145)
[2022-11-24] MEDS: Cefepime 2 GM in Sodium Chloride 0.9% 100 ML IVPB SCH ×2 (06:17→17:47)
[2022-11-24] MEDS: Acetaminophen 325 MG TAB PO PRN ×2 (06:27→21:17)
[2022-11-24] MEDS: HumaLOG 300 UNITS/3 ML VIAL SC SCH ×3 (09:12→17:47)
[2022-11-24] MEDS: metFORMIN 500 MG TAB PO SCH ×2 (09:13→17:47)
[2022-11-24] MEDS: Metoprolol Tartrate 25 MG TAB PO SCH ×2 (09:13→21:03)
[2022-11-24] MEDS: Insulin Glargine 30 UNITS/0.3 ML VIAL SC SCH ×2 (09:14→21:06)
[2022-11-24] MEDS: Empagliflozin 10 MG TAB PO SCH (09:14)
[2022-11-24] MEDS: Apixaban 5 MG TAB PO SCH ×3 (09:14→22:29)
[2022-11-24] MEDS: Clotrimazole 1 % Cream 30 GM TUBE TOP SCH ×2 (09:14→21:05)
[2022-11-24] MEDS: VANCOMYCIN 1.25 GM/250 ML BAG 1.25 GM in Premix Bag 1 BAG IVPB SCH ×2 (09:19→21:07)
[2022-11-24] MEDS ORDERED: Morphine 2 MG/ML VIAL SLOW IVP SCH (16:30)
[2022-11-24] MEDS: Rosuvastatin 20 MG TAB PO SCH (21:04)
[2022-11-25 04:54] LABS: #Eosinphils 0.1 thou/uL (0.0-0.7); #Monocytes 1.7 thou/uL (0.11-0.59); #Neutrophils 7.1 thou/uL (1.40-6.50); %Basophils 0.2 % (0.0-1.0); %Eosinophils 0.6 % (0.0-10.0); %Lymphocytes 21.5 % (21.0-51.0); %Monocytes 14.6 % (0.0-10.0); %Neutrophils 62.7 % (42.0-75.0); Mean Corpuscular HGB CONC 33.2 g/dL (32.0-36.0); Mean Corpuscular Hemoglobin 30.7 pg (27.0-31.0); Mean Corpuscular Volume 92.5 fl (78.0-98.0); Mean Platelet Volume 11.7 fL (7.4-10.4); RBC Distribution Width 12.1 % (11.5-14.5); Red Blood Cell (RBC) Count 3.58 mill/uL (4.70-6.10); White Blood Cell (WBC) Count 11.3 10x3/uL (4.8-10.8)
[2022-11-25 05:17] LABS: Platelet Count 107 10x3/uL (130-400)
[2022-11-25 05:23] LABS: ALT (SGPT) 72 U/L (8-55); AST (SGOT) 70 U/L (5-34); Albumin 3.2 g/dL (3.4-4.8); Alkaline Phosphatase 74 U/L (40-110); Anion Gap 14 mmol/L (10-20); BUN (Urea Nitrogen) 12 mg/dL (8.4-25.7); Bilirubin, Total 1.8 mg/dL (0.2-1.2); Calc. Creatinine Clearance 125 mL/min (70-130); Calcium 9.5 mg/dL (7.8-10.44); Carbon Dioxide 23 mmol/L (23-31); Chloride 105 mmol/L (98-107); Estimated GFR 90; Globulin 3.1 g/dL (2.4-3.5); Glucose 108 mg/dL (80-115); Potassium 3.5 mmol/L (3.5-5.1); Protein, Total 6.3 g/dL (5.8-8.1); Sodium 138 mmol/L (136-145)
[2022-11-25] MEDS: Cefepime 2 GM in Sodium Chloride 0.9% 100 ML IVPB SCH ×2 (05:33→17:32)
[2022-11-25 07:53] LABS: Vancomycin, Trough 9.7 ug/mL
[2022-11-25] MEDS: VANCOMYCIN 1.25 GM/250 ML BAG 1.25 GM in Premix Bag 1 BAG IVPB SCH (08:40)
[2022-11-25] MEDS: Metoprolol Tartrate 25 MG TAB PO SCH ×2 (08:46→21:32)
[2022-11-25] MEDS: Empagliflozin 10 MG TAB PO SCH (08:47)
[2022-11-25] MEDS: Clotrimazole 1 % Cream 30 GM TUBE TOP SCH ×2 (08:47→21:34)
[2022-11-25] MEDS: metFORMIN 500 MG TAB PO SCH ×2 (08:47→17:32)
[2022-11-25] MEDS: HumaLOG 300 UNITS/3 ML VIAL SC SCH ×3 (08:48→17:32)
[2022-11-25] MEDS: Insulin Glargine 30 UNITS/0.3 ML VIAL SC SCH ×2 (08:50→21:34)
[2022-11-25] MEDS ORDERED: VANCOMYCIN 1.75 GM/500 ML BAG 1.75 GM in Premix Bag 1 BAG IVPB SCH (09:00)
[2022-11-25 12:25] LABS: HBCM Index 0.34 S/CO (0-0.79); HBSAg Index 0.23 S/CO (0-0.99); Hep A IgM AB Non-Reactive S/CO (NonReactive); Hep A IgM S/CO 0.09 S/CO (0-0.79); Hep B Surf Ag Non-Reactive S/CO (NonReactive); Hepatitis B Core IgM Abs Non-Reactive S/CO (NonReactive)
[2022-11-25 12:33] LABS: Hep C IgG Ab Reflex HepC Qnt S/CO (NonReactive); Hep C Index 16.65 S/CO (0-0.79)
[2022-11-25] MEDS: Acetaminophen 325 MG TAB PO PRN ×2 (13:25→21:31)
[2022-11-25] MEDS ORDERED: Iopamidol-370 76% 500 ML MDV (1 ML CHARGE) ONE (15:13)
[2022-11-25] MEDS: Ondansetron PF 4 MG/2 ML Vial IVP PRN (17:38)
[2022-11-25] MEDS: Melatonin 3 MG TAB PO PRN (21:30)
[2022-11-25] MEDS: Rosuvastatin 20 MG TAB PO SCH (21:32)
[2022-11-26] MEDS: Cefepime 2 GM in Sodium Chloride 0.9% 100 ML IVPB SCH ×2 (05:37→17:09)
[2022-11-26] MEDS ORDERED: fentaNYL PF 100 MCG/2 ML SYRINGE ONE ×2 (06:49→07:10)
[2022-11-26] MEDS ORDERED: Bupivacaine HCl 0.5%/Epinephrine 1:200,000/PF 30 ml Vial ONE (06:52)
[2022-11-26] MEDS ORDERED: fentaNYL 50 mcg/mL 1 mL Vial ONE (07:11)
[2022-11-26] MEDS ORDERED: SUGAMMADEX SODIUM 200 MG/2 ML VIAL ONE (07:11)
[2022-11-26] MEDS ORDERED: Midazolam HCl 2 mg/2 ml Vial ONE ×2 (07:30→07:31)
[2022-11-26] MEDS ORDERED: Iopamidol 15 ML ONE (07:31)
[2022-11-26] MEDS ORDERED: Ondansetron PF 4 MG/2 ML Vial ONE (07:43)
[2022-11-26] MEDS ORDERED: Rocuronium Bromide 10 MG/ML (10ML VIAL) ONE (07:43)
[2022-11-26] MEDS ORDERED: Lidocaine 1% PF 5 ML VIAL ONE (07:43)
[2022-11-26] MEDS ORDERED: PROPOFOL 200 MG/20 ML VIAL ONE (07:43)
[2022-11-26] MEDS ORDERED: Ketorolac Tromethamine 30 MG/ML VIAL ONE (07:43)
[2022-11-26] MEDS ORDERED: Metoclopramide HCl 10 MG/2 ML VIAL ONE (07:43)
[2022-11-26] MEDS ORDERED: Fentanyl 250 MCG/5 ML VIAL ONE (10:06)
[2022-11-26] MEDS: Insulin Glargine 30 UNITS/0.3 ML VIAL SC SCH ×2 (12:06→20:55)
[2022-11-26] MEDS: Clotrimazole 1 % Cream 30 GM TUBE TOP SCH ×2 (12:06→20:55)
[2022-11-26] MEDS: HumaLOG 300 UNITS/3 ML VIAL SC SCH ×3 (12:06→17:10)
[2022-11-26] MEDS: metFORMIN 500 MG TAB PO SCH ×2 (12:38→17:10)
[2022-11-26] MEDS: Empagliflozin 10 MG TAB PO SCH (12:39)
[2022-11-26] MEDS ORDERED: traMADol HCl 50 MG TAB PO PRN (12:54)
[2022-11-26] MEDS: Metoprolol Tartrate 25 MG TAB PO SCH ×2 (12:57→20:54)
[2022-11-26] MEDS ORDERED: HYDROcodone/Acetaminophen 5/325 mg Tablet PO PRN (16:12)
[2022-11-26] MEDS ORDERED: Morphine 4 MG/ML VIAL SLOW IVP PRN (16:12)
[2022-11-26] MEDS ORDERED: Morphine 2 MG/ML VIAL SLOW IVP PRN (16:12)
[2022-11-26] MEDS: traMADol HCl 50 MG TAB PO SCH (17:10)
[2022-11-26] MEDS: Melatonin 3 MG TAB PO PRN (20:53)
[2022-11-26] MEDS: Doxycycline 100 MG CAP PO SCH (20:54)
[2022-11-26] MEDS: Rosuvastatin 20 MG TAB PO SCH (20:54)
[2022-11-26] MEDS: HYDROcodone/Acetaminophen 5/325 mg Tablet PO PRN (20:56)
[2022-11-26] MEDS ORDERED: Apixaban 5 MG TAB PO SCH (21:00)
[2022-11-27] MEDS: traMADol HCl 50 MG TAB PO SCH ×5 (00:14→23:23)
[2022-11-27 04:57] LABS: #Eosinphils 0.1 thou/uL (0.0-0.7); #Monocytes 1.1 thou/uL (0.11-0.59); #Neutrophils 5.1 thou/uL (1.40-6.50); %Basophils 0.5 % (0.0-1.0); %Eosinophils 1.3 % (0.0-10.0); %Lymphocytes 23.6 % (21.0-51.0); %Monocytes 12.8 % (0.0-10.0); %Neutrophils 61.2 % (42.0-75.0); Hemoglobin 10.4 g/dL (14.0-18.0); Mean Corpuscular HGB CONC 32.8 g/dL (32.0-36.0); Mean Corpuscular Hemoglobin 30.9 pg (27.0-31.0); Mean Corpuscular Volume 94.1 fl (78.0-98.0); Mean Platelet Volume 10.5 fL (7.4-10.4); Platelet Count 147 10x3/uL (130-400); RBC Distribution Width 12.3 % (11.5-14.5); Red Blood Cell (RBC) Count 3.37 mill/uL (4.70-6.10); White Blood Cell (WBC) Count 8.3 10x3/uL (4.8-10.8)
[2022-11-27 05:20] LABS: ALT (SGPT) 114 U/L (8-55); AST (SGOT) 81 U/L (5-34); Albumin 3.1 g/dL (3.4-4.8); Alkaline Phosphatase 90 U/L (40-110); Anion Gap 13 mmol/L (10-20); BUN (Urea Nitrogen) 8 mg/dL (8.4-25.7); Calc. Creatinine Clearance 149 mL/min (70-130); Carbon Dioxide 24 mmol/L (23-31); Chloride 103 mmol/L (98-107); Estimated GFR 101; Globulin 3.1 g/dL (2.4-3.5); Glucose 125 mg/dL (80-115); Potassium 3.5 mmol/L (3.5-5.1); Protein, Total 6.2 g/dL (5.8-8.1); Sodium 136 mmol/L (136-145)
[2022-11-27] MEDS: Cefepime 2 GM in Sodium Chloride 0.9% 100 ML IVPB SCH (06:28)
[2022-11-27 08:38] LABS: Hep C PCR-Quant HCV Not Detected IU/mL (.)
[2022-11-27] MEDS: Metoprolol Tartrate 25 MG TAB PO SCH ×2 (08:58→21:30)
[2022-11-27] MEDS: Empagliflozin 10 MG TAB PO SCH (08:58)
[2022-11-27] MEDS: metFORMIN 500 MG TAB PO SCH ×3 (08:58→17:31)
[2022-11-27] MEDS: Doxycycline 100 MG CAP PO SCH ×2 (08:59→21:29)
[2022-11-27] MEDS: Apixaban 5 MG TAB PO SCH ×2 (08:59→21:29)
[2022-11-27] MEDS: Insulin Glargine 30 UNITS/0.3 ML VIAL SC SCH ×2 (09:01→21:49)
[2022-11-27] MEDS: HumaLOG 300 UNITS/3 ML VIAL SC SCH ×4 (09:02→17:29)
[2022-11-27] MEDS: Clotrimazole 1 % Cream 30 GM TUBE TOP SCH ×2 (09:03→21:29)
[2022-11-27] MEDS: Sacubitril 24MG/Valsartan 26 MG TAB PO SCH ×2 (11:29→21:29)
[2022-11-27] MEDS: HYDROcodone/Acetaminophen 5/325 mg Tablet PO PRN ×2 (14:47→21:27)
[2022-11-27] MEDS ORDERED: Calcium Carbonate 500 MG ChewTAB PO PRN (16:15)
[2022-11-27] MEDS: Rosuvastatin 20 MG TAB PO SCH (21:29)
[2022-11-28 06:02] LABS: #Eosinphils 0.1 thou/uL (0.0-0.7); #Monocytes 1.1 thou/uL (0.11-0.59); #Neutrophils 5.9 thou/uL (1.40-6.50); %Basophils 0.3 % (0.0-1.0); %Eosinophils 0.7 % (0.0-10.0); %Lymphocytes 24.3 % (21.0-51.0); %Monocytes 11.2 % (0.0-10.0); %Neutrophils 62.7 % (42.0-75.0); Hemoglobin 10.1 g/dL (14.0-18.0); Mean Corpuscular HGB CONC 32.5 g/dL (32.0-36.0); Mean Corpuscular Volume 95.4 fl (78.0-98.0); Mean Platelet Volume 10.3 fL (7.4-10.4); Platelet Count 179 10x3/uL (130-400); RBC Distribution Width 12.4 % (11.5-14.5); Red Blood Cell (RBC) Count 3.26 mill/uL (4.70-6.10); White Blood Cell (WBC) Count 9.5 10x3/uL (4.8-10.8)
[2022-11-28 06:26] LABS: ALT (SGPT) 107 U/L (8-55); AST (SGOT) 71 U/L (5-34); Albumin 3.1 g/dL (3.4-4.8); Alkaline Phosphatase 105 U/L (40-110); Anion Gap 11 mmol/L (10-20); BUN (Urea Nitrogen) 6 mg/dL (8.4-25.7); Bilirubin, Total 1.5 mg/dL (0.2-1.2); Calc. Creatinine Clearance 149 mL/min (70-130); Calcium 9.2 mg/dL (7.8-10.44); Carbon Dioxide 25 mmol/L (23-31); Chloride 104 mmol/L (98-107); Estimated GFR 101; Globulin 3.2 g/dL (2.4-3.5); Glucose 74 mg/dL (80-115); Potassium 3.5 mmol/L (3.5-5.1); Protein, Total 6.3 g/dL (5.8-8.1); Sodium 136 mmol/L (136-145)
[2022-11-28] MEDS: traMADol HCl 50 MG TAB PO SCH ×2 (06:28→12:00)
[2022-11-28] MEDS: Sacubitril 24MG/Valsartan 26 MG TAB PO SCH ×2 (09:29→09:36)
[2022-11-28] MEDS: HYDROcodone/Acetaminophen 5/325 mg Tablet PO PRN (09:31)
[2022-11-28] MEDS: Apixaban 5 MG TAB PO SCH (09:32)
[2022-11-28] MEDS: metFORMIN 500 MG TAB PO SCH (09:32)
[2022-11-28] MEDS: Metoprolol Tartrate 25 MG TAB PO SCH (09:32)
[2022-11-28] MEDS: Doxycycline 100 MG CAP PO SCH (09:32)
[2022-11-28] MEDS: Empagliflozin 10 MG TAB PO SCH (09:33)
[2022-11-28] MEDS: HumaLOG 300 UNITS/3 ML VIAL SC SCH ×2 (09:41→13:32)
[2022-11-28] MEDS: Insulin Glargine 30 UNITS/0.3 ML VIAL SC SCH (09:42)
[2022-11-28] MEDS: Clotrimazole 1 % Cream 30 GM TUBE TOP SCH (09:45)
[2022-11-28 13:52] VITALS: BP 85/41; TEMP 97.9
== END 2022-11-28 13:40 | disposition home or self-care (01) | DRG 987 ==
LOC: ERS 09:26 → ERHOLD 14:20 → IMCU/EMU 18:57 → 2NO 11-21 14:34 → SJJU 11-26 15:58
PROVIDERS: ADMIT Student in an Organized Health Care Education/Training Program; ATTEND Student in an Organized Health Care Education/Training Program
PROC: 4A033R1 Measurement of Arterial Saturation, Peripheral, Percutaneous Approach (ICD-10-PCS; principal; 2022-11-18)
PROC: 0FT44ZZ Resection of Gallbladder, Percutaneous Endoscopic Approach (ICD-10-PCS; 2022-11-26)
PROC: BF141ZZ Fluoroscopy of Gallbladder, Bile Ducts and Pancreatic Ducts using Low Osmolar Contrast (ICD-10-PCS; 2022-11-26)
DX: E11.10 Type 2 diabetes mellitus with ketoacidosis without coma (principal); A41.9 Sepsis, unspecified organism; B37.0 Candidal stomatitis; I50.22 Chronic systolic (congestive) heart failure; N17.9 Acute kidney failure, unspecified; I42.0 Dilated cardiomyopathy; L03.114 Cellulitis of left upper limb; I25.5 Ischemic cardiomyopathy; N18.2 Chronic kidney disease, stage 2 (mild); E87.5 Hyperkalemia; E83.41 Hypermagnesemia; E83.39 Other disorders of phosphorus metabolism; N48.1 Balanitis; I95.9 Hypotension, unspecified; Z20.822 Contact with and (suspected) exposure to COVID-19; K81.1 Chronic cholecystitis; B19.20 Unspecified viral hepatitis C without hepatic coma; E78.5 Hyperlipidemia, unspecified; G89.29 Other chronic pain; Z95.810 Presence of automatic (implantable) cardiac defibrillator; Z79.01 Long term (current) use of anticoagulants; Z79.899 Other long term (current) drug therapy; Z82.3 Family history of stroke; Z87.891 Personal history of nicotine dependence; Z90.49 Acquired absence of other specified parts of digestive tract
CPT/HCPCS: 36415; 36416; 47532; 71045; 74177; 76705; 78227; 80053; 80074; 80202; 81001; 82010; 82805; 83036; 83605; 83690; 83735; 84100; 85025; 87040; 87491; 87522; 87591; 88304; 93005; 96360; 96361; 96365; 96366; 99292; A9537; C1889; C9113; J0692; J1815; J1885; J2250; J2272; J2405; J2704; J2765; J3010; J3370; J3480; J3490; J7042; J7050; J7120; Q9967

== ENCOUNTER 2023-10-06 13:28 | Outpatient (CLI) | payer OTHER ==
[2023-10-06 15:27] LABS: #Basophils 0.03 10x3/uL (0.0-0.2); #Monocytes 0.55 10x3/uL (0.0-1.1); #Neutrophils 2.93 10x3/uL (1.5-8.4); %Basophils 0.5 % (0.0-2.0); %Eosinophils 1.5 % (0.0-6.0); %Lymphocytes 45.4 % (18.0-47.0); %Monocytes 8.3 % (0.0-10.0); Hematocrit 45.5 % (38.8-50.0); Hemoglobin 16.1 g/dL (13.5-17.5); Mean Corpuscular HGB CONC 35.4 g/dL (32.0-36.0); Mean Corpuscular Hemoglobin 31.6 pg (27.0-33.0); Mean Corpuscular Volume 89.4 fl (81.2-95.1); Mean Platelet Volume 11.7 fl (7.4-10.4); Platelet Count 149 10x3/uL (150-450); Red Blood Cell (RBC) Count 5.09 10x6/uL (4.32-5.72); White Blood Cell (WBC) Count 6.7 10x3/uL (3.5-10.5)
[2023-10-06 15:55] LABS: INR-International Normal Ratio 1.1; PTT 26.9 sec (22.0-33.0); Prothrombin Time 11.4 sec (9.5-12.1)
[2023-10-06 16:02] LABS: ALT (SGPT) 32 U/L (8-55); AST (SGOT) 24 U/L (5-34); Albumin 4.3 g/dL (3.4-4.8); Alkaline Phosphatase 47 U/L (40-110); Anion Gap 13 mmol/L (10-20); BUN (Urea Nitrogen) 16 mg/dL (8.4-25.7); Bilirubin, Direct 0.2 mg/dL (0.1-0.3); Bilirubin, Total 0.5 mg/dL (0.2-1.2); Calc. Creatinine Clearance 0 mL/min (70-130); Calcium 9.9 mg/dL (7.8-10.44); Carbon Dioxide 24 mmol/L (23-31); Chloride 108 mmol/L (98-107); Estimated GFR 81; Globulin 3.2 g/dL (2.4-3.5); Glucose 116 mg/dL (80-115); Potassium 3.8 mmol/L (3.5-5.1); Protein, Total 7.5 g/dL (5.8-8.1); Sodium 141 mmol/L (136-145)
== END 2023-10-06 13:29 | disposition home or self-care (01) ==
LOC: LABBT 13:28
PROVIDERS: ATTEND Internal Medicine Cardiovascular Disease
DX: Z01.812 Encounter for preprocedural laboratory examination (principal)
CPT/HCPCS: 80053; 80076; 85025; 85610; 85730

== ENCOUNTER 2023-11-23 12:00 | Outpatient (CLI) | payer OTHER ==
[2023-11-23 12:46] LABS: #Basophils 0.02 10x3/uL (0.0-0.2); #Eosinphils 0.11 10x3/uL (0.0-0.5); #Monocytes 0.44 10x3/uL (0.0-1.1); #Neutrophils 2.82 10x3/uL (1.5-8.4); %Basophils 0.3 % (0.0-2.0); %Eosinophils 1.7 % (0.0-6.0); %Lymphocytes 46.3 % (18.0-47.0); %Neutrophils 44.5 % (40.0-75.0); Hematocrit 42.8 % (38.8-50.0); Hemoglobin 15.1 g/dL (13.5-17.5); Mean Corpuscular HGB CONC 35.3 g/dL (32.0-36.0); Mean Corpuscular Volume 90.7 fL (81.2-95.1); Mean Platelet Volume 11.4 fL (7.4-10.4); Platelet Count 144 10x3/uL (150-450); RBC Distribution Width 12.3 % (11.5-14.5); Red Blood Cell (RBC) Count 4.72 10x6/uL (4.32-5.72); White Blood Cell (WBC) Count 6.3 10x3/uL (3.5-10.5)
[2023-11-23 13:12] LABS: INR-International Normal Ratio 1.1; PTT 25.7 sec (22.0-33.0); Prothrombin Time 11.4 sec (9.5-12.1)
[2023-11-23 13:16] LABS: ALT (SGPT) 30 U/L (8-55); AST (SGOT) 23 U/L (5-34); Alkaline Phosphatase 47 U/L (40-110); Anion Gap 10 mmol/L (10-20); BUN (Urea Nitrogen) 13 mg/dL (8.4-25.7); Bilirubin, Direct 0.1 mg/dL (0.1-0.3); Bilirubin, Total 0.4 mg/dL (0.2-1.2); Calc. Creatinine Clearance 0 mL/min (70-130); Calcium 9.5 mg/dL (7.8-10.44); Carbon Dioxide 22 mmol/L (23-31); Chloride 111 mmol/L (98-107); Estimated GFR 84; Globulin 3.1 g/dL (2.4-3.5); Glucose 130 mg/dL (80-115); Protein, Total 7.1 g/dL (5.8-8.1); Sodium 139 mmol/L (136-145)
== END 2023-11-23 12:01 | disposition home or self-care (01) ==
LOC: LABBT 12:00
PROVIDERS: ATTEND Internal Medicine Cardiovascular Disease
DX: Z01.812 Encounter for preprocedural laboratory examination (principal)
CPT/HCPCS: 80053; 80076; 85025; 85610; 85730

== ENCOUNTER 2024-05-18 11:17 | Outpatient (CLI) | payer OTHER | END 2024-05-18 11:18 | disposition home or self-care (01) | LOC: RAD 11:17 | PROVIDERS: ATTEND Internal Medicine Cardiovascular Disease | DX: I25.10 Atherosclerotic heart disease of native coronary artery without angina pectoris (principal) | CPT/HCPCS: 71046 ==